=== PATIENT | male | born 1940 ===

== ENCOUNTER 2017-05-28 15:46 | Emergency (ER) | payer SELFPAY ==
[2017-05-28 17:20] LABS: BASO % 0.4 % (0.0-2.0); EOS # 0.1 K/uL (0.0-0.7); EOS % 0.9 % (0.0-4.0); HEMOGLOBIN 15.1 g/dL (12.0-18.0); LYMPH # 1.7 K/uL (1.0-4.3); LYMPH % 18.7 % (20.0-40.0); MEAN CELL VOLUME 91.4 fl (80.0-94.0); MEAN CORPUSCULAR HEMOGLOBIN 30.9 pg (27.0-31.0); MEAN CORPUSCULAR HGB CONC 33.8 g/dL (33.0-37.0); MEAN PLATELET VOLUME 8.3 fl (7.2-11.7); MONO # 0.6 K/uL (0.0-0.8); MONO % 6.4 % (0.0-10.0); NEUT # 6.5 K/uL (1.8-7.0); NEUT % 73.6 % (50.0-75.0); RBC 4.88 Mil/uL (4.40-5.90); WHITE BLOOD COUNT 8.9 K/uL (4.8-10.8)
[2017-05-28 17:30] LABS: VENOUS BLOOD GAS BASE EXCESS 1.1 mmol/L (0.0-2.0); VENOUS BLOOD GAS PCO2 55 mmHg (40-60); VENOUS BLOOD GAS PO2 29 mm/Hg (30-55); VENOUS BLOOD PH 7.32 (7.32-7.43)
[2017-05-28 17:47] LABS: ALBUMIN 4.4 g/dL (3.5-5.0); ALT/SGPT 39 U/L (21-72); AST/SGOT 32 U/L (17-59); BLOOD UREA NITROGEN 20 mg/dl (9-20); CALCIUM 9.3 mg/dL (8.4-10.2); GFR AFRICAN-AMERICAN > 60; GFR NON-AFRICAN AMERICAN > 60
[2017-05-28] MEDS ORDERED: Sodium Chloride 0.9% 1,000 ML IV STA ×2 (17:58→19:47)
[2017-05-28 19:33] VITALS: BP 158/74; PULSE 58; RESP 18; TEMP 98; O2SAT 97
--- NOTE | 2017-05-28 20:19 | ED PDOC ---
Hyperglycemia/Hypoglycemia Time Seen by Provider: 05/28/17 16:21 Chief Complaint (Nursing): High Blood Sugar Chief Complaint (Provider): elevated blood sugar History Per: Patient, Family History/Exam Limitations: no limitations Onset/Duration Of Symptoms: Days (3), Gradual Current Symptoms Are (Timing): Still Present Causative (Exacerbating) Factor(s): Other (recent diagnosis of diabetes) : The patient does not have any of the infectious symptoms listed except for those marked. Treatment Prior To Provider Evaluation: None Additional Complaint(s): Sent from clinic for high blood sugar Diagnosed with diabetes 4 days ago and just starte on metformin Reports lightheadedness, excessive thrist, urinary frequency. PMD [facility] Past Medical History Reviewed: Historical Data, Nursing Documentation, Vital Signs Vital Signs: Last Vital Signs Temp 98.0 F 05/28/17 19:32 Pulse 58 L 05/28/17 19:32 Resp 18 05/28/17 19:32 BP 158/74 H 05/28/17 19:32 Pulse Ox 97 05/28/17 19:32 - Medical History PMH: HTN, Hypercholesterolemia, TIA (Admitted last month) Denies: Alzheimer's Disease, Chronic Kidney Disease - Surgical History Surgical History: Cholecystectomy - Family History Family History: States: Unknown Family Hx - Home Medications Home Medications: Ambulatory Orders Medication Instructions Recorded Atorvastatin [Lipitor] 10 mg PO HS #30 tab 03/21/17 Clopidogrel [Plavix] 75 mg PO DAILY #30 tab 03/21/17 Ibuprofen [Motrin Tab] 600 mg PO Q6 PRN #60 tab 03/21/17 Tamsulosin [Flomax] 0.4 mg PO HS #30 cap 03/21/17 amLODIPine [Norvasc] 10 mg PO DAILY #30 tab 03/21/17 metFORMIN [glucOPHAGE] 500 mg PO BID #60 tab 05/24/17 - Allergies Allergies/Adverse Reactions: Allergies Allergy/AdvReac Type Severity Reaction Status Date / Time No Known Allergies Allergy Verified 05/24/17 19:51 Review of Systems ROS Statement: Except As Marked, All Systems Reviewed And Found Negative (and as per hpi) Cardiovascular: Positive for: Light Headedness. Negative for: Chest Pain Genitourinary Male: Positive for: Frequency. Negative for: Dysuria, Hematuria Physical Exam - Reviewed Nursing Documentation Reviewed: Yes Vital Signs Reviewed: Yes - Physical Exam Appears: Positive for: Non-toxic, No Acute Distress Head Exam: Positive for: ATRAUMATIC, NORMOCEPHALIC Skin: Positive for: Warm, Dry Eye Exam: Positive for: EOMI, PERRL ENT: Negative for: Pharyngeal Erythema, Tonsillar Exudate Neck: Positive for: Painless ROM, Supple Cardiovascular/Chest: Positive for: Regular Rate, Rhythm. Negative for: Murmur Respiratory: Positive for: Normal Breath Sounds. Negative for: Wheezing Gastrointestinal/Abdominal: Positive for: Soft. Negative for: Tenderness Extremity: Positive for: Normal ROM. Negative for: Deformity Lymphatic: Negative for: Adenopathy Neurologic/Psych: Positive for: Alert. Negative for: Motor/Sensory Deficits - Laboratory Results Result Diagrams: 05/28/17 17:10 05/28/17 17:10 - ECG O2 Sat by Pulse Oximetry: 97 Medical Decision Making Medical Decision Making: Labs c/w hyperglycemia, no acidosis. On reeval at 730p Pt reports feeling better s/p IVF. Stable for DC with f/u [facility]. Advised increase water intake and strict diabetic diet. Disposition - Clinical Impression Clinical Impression: Hyperglycemia - Disposition Disposition: Routine/Home Disposition Time: 20:00 Condition: IMPROVED Additional Instructions: QING MUCHO AGUA CONTINUE RODRIGUES MEDICAMENTOS A RECETO NO QING SODAS O JUGOS. NO COME DULCES O MUCHO COOK Y ARROZ. Instructions: Hyperglycemia, Adult (DC), Diabetes and Diet Print Language: ROMANIAN
--- NOTE | 2017-05-29 18:12 | CARD ---
APPROVED REPORT EKG Measurement Heart [id number] <Conclusion> Sinus bradycardia Left axis deviation Inferior infarct, age undetermined Abnormal ECG
== END 2017-05-28 21:50 | disposition home or self-care (01) ==
LOC: H.ER 15:46
DX: E11.65 Type 2 diabetes mellitus with hyperglycemia (principal); Z79.84 Long term (current) use of oral hypoglycemic drugs; E78.00 Pure hypercholesterolemia, unspecified; I10 Essential (primary) hypertension; Z86.73 Personal history of transient ischemic attack (TIA), and cerebral infarction without residual deficits
CPT/HCPCS: 80053; 82803; 82948; 83735; 83930; 84100; 84484; 85025; 87040; 93005; 96360; 99285; J7040

== ENCOUNTER 2017-05-29 23:18 | Inpatient (IN) | payer MEDICAID, SELFPAY ==
[2017-05-30] MEDS ORDERED: Sodium Chloride 0.9% 1,000 ML IV STA (00:08)
--- NOTE | 2017-05-30 00:26 | ED PDOC ---
Hyperglycemia/Hypoglycemia Time Seen by Provider: 05/30/17 00:04 Chief Complaint (Nursing): High Blood Sugar Chief Complaint (Provider): High Blood Sugar History Per: Patient History/Exam Limitations: no limitations : The patient does not have any of the infectious symptoms listed except for those marked. Additional Complaint(s): 76 year old male presents to the emergency department with a complaint of high blood sugar, polyuria, polydipsia, and generalized weakness. States he is compliant with medication along with diet precautions although blood sugar remains elevated. Patient was diagnosed with diabetes on 05/25/2017, seen within this facility of 05/24/2017 and 05/28/2017 and discharged with diabetes. Past Medical History Reviewed: Historical Data, Nursing Documentation, Vital Signs Vital Signs: Last Vital Signs Temp 98.4 F 05/29/17 23:43 Pulse 60 05/29/17 23:43 Resp 16 05/29/17 23:43 BP 142/78 05/29/17 23:43 Pulse Ox 96 05/29/17 23:43 - Medical History PMH: Diabetes, HTN, Hypercholesterolemia, TIA (Admitted last month) Denies: Alzheimer's Disease, Chronic Kidney Disease - Surgical History Surgical History: Cholecystectomy - Family History Family History: States: Unknown Family Hx - Home Medications Home Medications: Ambulatory Orders Medication Instructions Recorded amLODIPine [Norvasc] 10 mg PO DAILY #30 tab 03/21/17 metFORMIN [glucOPHAGE] 500 mg PO BID #60 tab 05/24/17 - Allergies Allergies/Adverse Reactions: Allergies Allergy/AdvReac Type Severity Reaction Status Date / Time No Known Allergies Allergy Verified 05/24/17 19:51 Review of Systems ROS Statement: Except As Marked, All Systems Reviewed And Found Negative (As per HPI, otherwise negative) Constitutional: Positive for: Weakness (generalized), Other (polyuria and polydipsia) Physical Exam - Reviewed Nursing Documentation Reviewed: Yes Vital Signs Reviewed: Yes - Physical Exam Appears: Positive for: No Acute Distress Head Exam: Positive for: NORMAL INSPECTION Skin: Positive for: Normal Color, Warm, Dry ENT: Positive for: Normal ENT Inspection (mucous membranes dry) Cardiovascular/Chest: Positive for: Regular Rate, Rhythm. Negative for: Murmur Respiratory: Positive for: Normal Breath Sounds. Negative for: Accessory Muscle Use, Respiratory Distress Gastrointestinal/Abdominal: Positive for: Normal Exam, Soft. Negative for: Tenderness Extremity: Positive for: Normal ROM. Negative for: Pedal Edema Neurologic/Psych: Positive for: Alert, Oriented (x3) - Laboratory Results Result Diagrams: 05/30/17 00:40 05/30/17 00:40 - ECG O2 Sat by Pulse Oximetry: 96 (RA) Pulse Ox Interpretation: Normal Medical Decision Making Medical Decision Making: Time: 7 Initial Impression: Persistent hyperglycemia in setting of recent diagnosis of diabetes mellitus Initial Plan: --CMP --Urine DIP --CBC w/ diff --Sodium Chloride 1L IV --Urinalysis --ABD Shock panel --Reevaluation Time: 125 --Patient will be admitted for further titration of his oral hyperglycemic regimen and blood sugars under Dr. Aleshia SANTIAGO Time: 199 --Admit to hospital routine: as inpatient in med/surg for hyperglycemia and uncontrolled DM. Scribe Attestation: Documented by Jovita Richard acting as a scribe for Luis Dolan MD. MD Scribe Attestation: All medical record entries made by the Scribe were at my direction and personally dictated by me. I have reviewed the chart and agree that the record accurately reflects my personal performance of the history, physical exam, medical decision making, and the department course for this patient. I have also personally directed, reviewed, and agree with the discharge instructions and disposition. Disposition - Clinical Impression Clinical Impression: Hyperglycemia - Patient ED Disposition Is Patient to be Admitted: Yes (inpatient) - Disposition Disposition Time: 02:00 Condition: STABLE - Pt Status Changed To: Hospital Disposition Of: Inpatient - Admit Certification Admit to Inpatient:: After my assessment, the patient will require hospitalization for at least two midnights. This is because of the severity of symptoms shown, intensity of services needed, and/or the medical risk in this patient being treated as an outpatient.
[2017-05-30 00:43] LABS: BASO % 0.6 % (0.0-2.0); EOS # 0.1 K/uL (0.0-0.7); EOS % 1.5 % (0.0-4.0); HEMOGLOBIN 13.9 g/dL (12.0-18.0); LYMPH # 1.8 K/uL (1.0-4.3); LYMPH % 23.7 % (20.0-40.0); MEAN CELL VOLUME 91.1 fl (80.0-94.0); MEAN PLATELET VOLUME 8.4 fl (7.2-11.7); MONO # 0.6 K/uL (0.0-0.8); MONO % 8.4 % (0.0-10.0); NEUT % 65.8 % (50.0-75.0); NRBC % 0.1 % (0.0-0.0); RBC 4.47 Mil/uL (4.40-5.90); RED CELL DISTRIBUTION WIDTH 13.2 % (11.5-14.5); WHITE BLOOD COUNT 7.6 K/uL (4.8-10.8)
[2017-05-30 00:53] LABS: ALB/GLOB RATIO 1.1 (1.0-2.1); ALBUMIN 3.9 g/dL (3.5-5.0); ALT/SGPT 32 U/L (21-72); AST/SGOT 27 U/L (17-59); BLOOD UREA NITROGEN 18 mg/dl (9-20); CALCIUM 9.1 mg/dL (8.4-10.2); GFR AFRICAN-AMERICAN > 60; GFR NON-AFRICAN AMERICAN > 60
[2017-05-30 01:05] LABS: ABG ALLEN TEST YES; ARTERIAL BLOOD GAS HCO3 26.6 mmol/L (21-28); ARTERIAL BLOOD GAS O2 SAT 98.5 % (95-98); ARTERIAL BLOOD GAS PCO2 43 mm/Hg (35-45); ARTERIAL BLOOD GAS PH 7.41 (7.35-7.45); ARTERIAL BLOOD GAS PO2 73 mm/Hg (80-100); ARTERIAL BLOOD GAS TCO2 28.6 mmol/L (22-28)
[2017-05-30] MEDS ORDERED: Potassium Chloride 20 mEq ER Tab PO ONE ×3 (02:22→09:11)
[2017-05-30] MEDS ORDERED: Glucagon Recombinant 1 mg Inj IM PRN (02:24)
[2017-05-30] MEDS ORDERED: Dextrose 50% SYRINGE Inj (50 ml) IV PRN (02:24)
[2017-05-30] MEDS ORDERED: Insulin Regular 100 units/ml SC ONE ×2 (02:29→02:46)
[2017-05-30 02:49] LABS: SQUAMOUS EPITHIAL < 1 /hpf (0-5); URINE BILIRUBIN NEGATIVE (NEGATIVE); URINE BLOOD SMALL (NEGATIVE); URINE CLARITY CLEAR (Clear); URINE COLOR STRAW (YELLOW); URINE GLUCOSE (UA) >=500 mg/dL (Normal); URINE LEUKOCYTE ESTERASE NEG Leu/uL (Negative); URINE PROTEIN NEGATIVE (NEGATIVE); URINE UROBILINOGEN 0.2-1.0 mg/dL (0.2-1.0)
[2017-05-30] MEDS ORDERED: Fluconazole 150 MG TAB PO ONE (03:12)
--- NOTE | 2017-05-30 03:14 | CP.PCM.HP ---
<Patti Monk - Last Filed: 05/30/17 04:43> History of Present Illness - History of Present Illness History of Present Illness: 76 y/o male with PMHx of HTN, DM type 2, Prostate disease s/p prostatectomy and Vitiligo presents to ED complaining of elevated blood sugar levels at home, associated with polyuria, polydipsia, and Nocturia ( waking up at night 4-5 times for urination) for 2 weeks. Patient reports that he was recently started ( 05/25/17) on diabetic medications( metformin 500 mg PO BID), and he has been adherent to his treatment and diet. Also patient reports burning and pain with urination, associated with itchy sensation in his penis for the last 2 weeks. Denies blood in urine. Denies fevers, chills, abdominal pain, diarrheas, N/V or other complains. PMD: [facility] PMHx: HTN, DM type 2, Prostate disease s/p prostatectomy and Vitiligo Allergies: POllen/sneezing FH: Mother and Father: /unknown medical history SHx: Cholecystectomy, Total prostatectomy (in [place]). Denies h/o Prostate cancer. Social: former smoker: quit >40 years ago, denies etoh and illicit drugs meds: as per records in [employer] RE course: VS: Afebrile, unremarkable PE: dry oral mucous. Labs: CBC: wnl, CMP: K+3.5 accucheck: 332 mg/dl treatment: 1L NS once Present on Admission - Present on Admission Any Indicators Present on Admission: No History of DVT/PE: No History of Uncontrolled Diabetes: No Urinary Catheter: No Decubitus Ulcer Present: No Review of Systems - Review of Systems All systems: reviewed and no additional remarkable complaints except (as per HPI ) Past Patient History - Infectious Disease Hx of Infectious Diseases: None - Past Medical History & Family History Past Medical History?: Yes - Past Social History Smoking Status: Former Smoker - CARDIAC Hx Hypercholesterolemia: Yes Hx Hypertension: Yes - PULMONARY Hx Respiratory Disorders: No - NEUROLOGICAL Hx Alzheimer's Disease: No Hx Transient Ischemic Attacks (TIA): Yes (Admitted last month) - HEENT Hx HEENT Problems: No - RENAL Hx Chronic Kidney Disease: No - ENDOCRINE/METABOLIC Hx Endocrine Disorders: Yes Hx Diabetes Mellitus Type 2: Yes - HEMATOLOGICAL/ONCOLOGICAL Hx Blood Disorders: No - INTEGUMENTARY Hx Dermatological Problems: Yes Other/Comment: Vetiligo - MUSCULOSKELETAL/RHEUMATOLOGICAL Hx Musculoskeletal Disorders: Yes Hx Falls: Yes - GASTROINTESTINAL Hx Gastrointestinal Disorders: Yes Hx Nausea: Yes Hx Vomiting: Yes - GENITOURINARY/GYNECOLOGICAL Hx Genitourinary Disorders: Yes Hx Prostate Problems: Yes (BPH) - PSYCHIATRIC Hx Psychophysiologic Disorder: No Hx Substance Use: No - SURGICAL HISTORY Hx Cholecystectomy: Yes - ANESTHESIA Hx Anesthesia: Yes Hx Anesthesia Reactions: No Meds Allergies/Adverse Reactions: Allergies Allergy/AdvReac Type Severity Reaction Status Date / Time No Known Allergies Allergy Verified 05/24/17 19:51 Physical Exam - Constitutional Appears: Non-toxic, No Acute Distress - Eye Exam Eye Exam: Normal appearance - ENT Exam ENT Exam: Mucous Membranes Dry - Respiratory Exam Respiratory Exam: Clear to Auscultation Bilateral, NORMAL BREATHING PATTERN. absent: Decreased Breath Sounds, Rales, Rhonchi, Wheezes, Respiratory Distress, Stridor - Cardiovascular Exam Cardiovascular Exam: REGULAR RHYTHM, RRR, +S1, +S2. absent: Bradycardia, Tachycardia - GI/Abdominal Exam GI & Abdominal Exam: Normal Bowel Sounds, Soft. absent: Distended, Guarding, Rebound, Rigid, Tenderness - Extremities Exam Extremities exam: Positive for: normal inspection. Negative for: calf tenderness, pedal edema - Back Exam Back exam: NORMAL INSPECTION. absent: CVA tenderness (L), CVA tenderness (R) - Neurological Exam Neurological exam: Alert, Oriented x3 - Psychiatric Exam Psychiatric exam: Normal Affect, Normal Mood - Skin Skin Exam: Dry, Intact, Normal Color Results - Vital Signs Recent Vital Signs: Last Vital Signs Temp 98.4 F 05/29/17 23:43 Pulse 60 05/29/17 23:43 Resp 16 05/29/17 23:43 BP 142/78 05/29/17 23:43 Pulse Ox 96 05/30/17 02:03 - Labs Result Diagrams: 05/30/17 00:40 05/30/17 00:40 Labs: Laboratory Results - last 24 hr 05/29/17 05/30/17 05/30/17 23:46 00:40 00:40 WBC 7.6 RBC 4.47 Hgb 13.9 Hct 40.8 MCV 91.1 MCH 31.0 MCHC 34.0 RDW 13.2 Plt Count 396 MPV 8.4 Neut % (Auto) 65.8 Lymph % (Auto) 23.7 [place] % (Auto) 8.4 Eos % (Auto) 1.5 Baso % (Auto) 0.6 Neut # (Auto) 5.0 Lymph # (Auto) 1.8 [place] # (Auto) 0.6 Eos # (Auto) 0.1 Baso # (Auto) 0.0 pCO2 pO2 HCO3 ABG pH ABG Total CO2 ABG O2 Saturation ABG Base Excess Gurjit Test ABG Potassium A-a O2 Difference Glucose Lactate FiO2 Sodium 134 Potassium 3.5 L Chloride 96 L Carbon Dioxide 22 Anion Gap 20 BUN 18 Creatinine 0.5 L Est GFR ( Amer) > 60 Est GFR (Non-Af Amer) > 60 POC Glucose (mg/dL) 332 H Random Glucose 359 H Calcium 9.1 Total Bilirubin 2.1 H AST 27 ALT 32 Alkaline Phosphatase 160 H Total Protein 7.6 Albumin 3.9 Globulin 3.7 Albumin/Globulin Ratio 1.1 Arterial Blood Potassium Urine Color Urine Clarity Urine pH Ur Specific [place] Urine Protein Urine Glucose (UA) Urine Ketones Urine Blood Urine Nitrate Urine Bilirubin Urine Urobilinogen Ur Leukocyte Esterase Urine RBC (Auto) Urine Microscopic WBC Ur Squamous Epith Cells 05/30/17 05/30/17 01:00 02:41 WBC RBC Hgb Hct MCV MCH MCHC RDW Plt Count MPV Neut % (Auto) Lymph % (Auto) [place] % (Auto) Eos % (Auto) Baso % (Auto) Neut # (Auto) Lymph # (Auto) [place] # (Auto) Eos # (Auto) Baso # (Auto) pCO2 43 pO2 73 L HCO3 26.6 ABG pH 7.41 ABG Total CO2 28.6 H ABG O2 Saturation 98.5 H ABG Base Excess 2.2 Gurjit Test Yes ABG Potassium 3.1 L A-a O2 Difference 23.0 Glucose 382 H Lactate 1.7 FiO2 21.0 Sodium 129.0 L Potassium Chloride 98.0 Carbon Dioxide Anion Gap BUN Creatinine Est GFR ( Amer) Est GFR (Non-Af Amer) POC Glucose (mg/dL) Random Glucose Calcium Total Bilirubin AST ALT Alkaline Phosphatase Total Protein Albumin Globulin Albumin/Globulin Ratio Arterial Blood Potassium 3.1 L Urine Color Straw Urine Clarity Clear Urine pH 6.0 Ur Specific [place] 1.024 Urine Protein Negative Urine Glucose (UA) >=500 Urine Ketones Negative Urine Blood Small Urine Nitrate Negative Urine Bilirubin Negative Urine Urobilinogen 0.2-1.0 Ur Leukocyte Esterase Neg Urine RBC (Auto) 12 H Urine Microscopic WBC 3 Ur Squamous Epith Cells < 1 Assessment & Plan - Assessment and Plan (Free Text) Assessment: 76 y/o male with PMHx of HTN, DM type 2 admitted with Hyperglycemia and uncontrolled diabetes. Plan: Uncontrolled NIDDM -MedSurg -accucheck in ER 332 -Regular insulin 5 units SC once -accucheck before insulin -accucheck before breakfast -Increase Metformin dose to 1000 mg PO BID -GFR >60, BUN/Cr: 18/0.5 /wnl -diabetic diet -Hypoglycemic protocol -UA showed glucosuria, no ketones -ABG: PH normal, lactate normal -reinforce counseling about DM type 2 -last HgbA1C on 05/24/17 was 11.5 -Lipid panel tested on 04/13/17 was WNL -base on patient's age and chronic conditions a A1C goal of 7.5-8 % could be consider Dysuria -associated with itchy in penis -most likely 2/2 candidiasis infection -diabetic patient -fluconazole 150 mg PO once -re-assess -UA on admission without evidence of infection HYpokalemia -mild low K+ 3.5 -replace with 20 meq PO once -f/u repeat K+ DVT prophylaxis Lovenox SC - Date & Time Date: 05/30/17 Time: 01:15 <Olga Dean - Last Filed: 05/30/17 09:56> Results - Vital Signs Recent Vital Signs: Last Vital Signs Temp 97.9 F 05/30/17 08:19 Pulse 53 L 05/30/17 08:19 Resp 20 05/30/17 08:19 BP 133/72 05/30/17 08:19 Pulse Ox 96 05/30/17 08:19 - Labs Result Diagrams: 05/30/17 00:40 05/30/17 05:05 Labs: Laboratory Results - last 24 hr 05/29/17 05/30/17 05/30/17 23:46 00:40 00:40 WBC 7.6 RBC 4.47 Hgb 13.9 Hct 40.8 MCV 91.1 MCH 31.0 MCHC 34.0 RDW 13.2 Plt Count 396 MPV 8.4 Neut % (Auto) 65.8 Lymph % (Auto) 23.7 [place] % (Auto) 8.4 Eos % (Auto) 1.5 Baso % (Auto) 0.6 Neut # (Auto) 5.0 Lymph # (Auto) 1.8 [place] # (Auto) 0.6 Eos # (Auto) 0.1 Baso # (Auto) 0.0 pCO2 pO2 HCO3 ABG pH ABG Total CO2 ABG O2 Saturation ABG Base Excess Gurjit Test ABG Potassium A-a O2 Difference Glucose Lactate FiO2 Sodium 134 Potassium 3.5 L Chloride 96 L Carbon Dioxide 22 Anion Gap 20 BUN 18 Creatinine 0.5 L Est GFR ( Amer) > 60 Est GFR (Non-Af Amer) > 60 POC Glucose (mg/dL) 332 H Random Glucose 359 H Calcium 9.1 Total Bilirubin 2.1 H AST 27 ALT 32 Alkaline Phosphatase 160 H Total Protein 7.6 Albumin 3.9 Globulin 3.7 Albumin/Globulin Ratio 1.1 Arterial Blood Potassium Urine Color Urine Clarity Urine pH Ur Specific [place] Urine Protein Urine Glucose (UA) Urine Ketones Urine Blood Urine Nitrate Urine Bilirubin Urine Urobilinogen Ur Leukocyte Esterase Urine RBC (Auto) Urine Microscopic WBC Ur Squamous Epith Cells 05/30/17 05/30/17 05/30/17 01:00 02:41 03:37 WBC RBC Hgb Hct MCV MCH MCHC RDW Plt Count MPV Neut % (Auto) Lymph % (Auto) [place] % (Auto) Eos % (Auto) Baso % (Auto) Neut # (Auto) Lymph # (Auto) [place] # (Auto) Eos # (Auto) Baso # (Auto) pCO2 43 pO2 73 L HCO3 26.6 ABG pH 7.41 ABG Total CO2 28.6 H ABG O2 Saturation 98.5 H ABG Base Excess 2.2 Gurjit Test Yes ABG Potassium 3.1 L A-a O2 Difference 23.0 Glucose 382 H Lactate 1.7 FiO2 21.0 Sodium 129.0 L Potassium Chloride 98.0 Carbon Dioxide Anion Gap BUN Creatinine Est GFR ( Amer) Est GFR (Non-Af Amer) POC Glucose (mg/dL) 240 H Random Glucose Calcium Total Bilirubin AST ALT Alkaline Phosphatase Total Protein Albumin Globulin Albumin/Globulin Ratio Arterial Blood Potassium 3.1 L Urine Color Straw Urine Clarity Clear Urine pH 6.0 Ur Specific [place] 1.024 Urine Protein Negative Urine Glucose (UA) >=500 Urine Ketones Negative Urine Blood Small Urine Nitrate Negative Urine Bilirubin Negative Urine Urobilinogen 0.2-1.0 Ur Leukocyte Esterase Neg Urine RBC (Auto) 12 H Urine Microscopic WBC 3 Ur Squamous Epith Cells < 1 05/30/17 05/30/17 05:05 07:24 WBC RBC Hgb Hct MCV MCH MCHC RDW Plt Count MPV Neut % (Auto) Lymph % (Auto) [place] % (Auto) Eos % (Auto) Baso % (Auto) Neut # (Auto) Lymph # (Auto) [place] # (Auto) Eos # (Auto) Baso # (Auto) pCO2 pO2 HCO3 ABG pH ABG Total CO2 ABG O2 Saturation ABG Base Excess Gurjit Test ABG Potassium A-a O2 Difference Glucose Lactate FiO2 Sodium 138 Potassium 3.0 L Chloride 100 Carbon Dioxide 24 Anion Gap 17 BUN 12 Creatinine 0.5 L Est GFR ( Amer) > 60 Est GFR (Non-Af Amer) > 60 POC Glucose (mg/dL) 96 Random Glucose 193 H Calcium 8.5 Total Bilirubin AST ALT Alkaline Phosphatase Total Protein Albumin Globulin Albumin/Globulin Ratio Arterial Blood Potassium Urine Color Urine Clarity Urine pH Ur Specific [place] Urine Protein Urine Glucose (UA) Urine Ketones Urine Blood Urine Nitrate Urine Bilirubin Urine Urobilinogen Ur Leukocyte Esterase Urine RBC (Auto) Urine Microscopic WBC Ur Squamous Epith Cells Attending/Attestation - Attestation I have personally seen and examined this patient.: Yes I have fully participated in the care of the patient.: Yes I have reviewed all pertinent clinical information: Yes Notes (Text): 05/30/17 09:56 CHART REVIEWED. AGREE WITH FINDINGS AND PLAN.
[2017-05-30] MEDS ORDERED: Insulin Regular 100 units/ml ONE (03:33)
[2017-05-30 07:55] LABS: BLOOD UREA NITROGEN 12 mg/dl (9-20); CALCIUM 8.5 mg/dL (8.4-10.2); GFR AFRICAN-AMERICAN > 60; GFR NON-AFRICAN AMERICAN > 60
[2017-05-30] MEDS ORDERED: Pneumococcal 23-Valent Vaccine IM ONE (09:00)
[2017-05-30] MEDS: Enoxaparin 40 mg Syringe SC SCH (09:37)
[2017-05-30] MEDS: Potassium Chloride 20 mEq 100 ML IVPB SCH ×2 (14:37→14:41)
[2017-05-30] MEDS: Insulin Lispro (humaLOG) 100 Units/ml Inj SC SCH (23:35)
[2017-05-31] MEDS: Insulin Lispro (humaLOG) 100 Units/ml Inj SC SCH ×4 (08:38→22:00)
[2017-05-31 10:38] LABS: BLOOD UREA NITROGEN 12 mg/dl (9-20); CALCIUM 8.8 mg/dL (8.4-10.2); GFR AFRICAN-AMERICAN > 60; GFR NON-AFRICAN AMERICAN > 60
[2017-05-31] MEDS ORDERED: Potassium Chloride 20 mEq ER Tab PO ONE (11:45)
[2017-05-31] MEDS: Enoxaparin 40 mg Syringe SC SCH (12:42)
--- NOTE | 2017-05-31 15:56 | CP.PCM.PN ---
<Andrei Jimenez - Last Filed: 05/31/17 15:48> Subjective - Date & Time of Evaluation Date of Evaluation: 05/31/17 Time of Evaluation: 09:40 - Subjective Subjective: Pt seen and examined at bedside. Denies significant overnight events. Reports mild discomfort of glans penis while urinating. Denies cp/sob/n/v. Tolerating po diet. Objective - Vital Signs/Intake and Output Vital Signs (last 24 hours): Temp Pulse Resp BP Pulse Ox 98.5 F 88 20 121/58 L 98 05/31/17 15:36 05/31/17 15:36 05/31/17 15:36 05/31/17 15:36 05/31/17 15:36 - Medications Medications: Current Medications Amlodipine Besylate (Norvasc) 10 mg PO DAILY [facility] Last Admin: 05/31/17 08:42 Dose: 10 mg Dextrose (Dextrose 50% Inj) 0 ml IV STAT PRN; Protocol PRN Reason: Hypoglycemia Protocol Dextrose (Glutose 15) 0 gm PO ONCE PRN; Protocol PRN Reason: Hypoglycemia Protocol Enoxaparin Sodium (Lovenox) 40 mg SC DAILY [facility] PRN Reason: Protocol Last Admin: 05/31/17 12:42 Dose: 40 mg Glipizide (Glucotrol) 5 mg PO ACL [facility] Last Admin: 05/31/17 12:42 Dose: 5 mg Glucagon (Glucagen Diagnostic Kit) 0 mg IM STAT PRN; Protocol PRN Reason: Hypoglycemia Protocol Insulin Human Lispro (Humalog) 0 units SC ACHS [facility] PRN Reason: Protocol Last Admin: 05/31/17 12:43 Dose: 2 u Metformin HCl (Glucophage) 1,000 mg PO BID [facility] Last Admin: 05/31/17 08:37 Dose: 1,000 mg - Labs Labs: 05/30/17 00:40 05/31/17 10:15 - Constitutional Appears: Well, No Acute Distress - Eye Exam Eye Exam: EOMI - Neck Exam Neck Exam: Full ROM - Respiratory Exam Respiratory Exam: Clear to Ausculation Bilateral, NORMAL BREATHING PATTERN. absent: Wheezes - Cardiovascular Exam Cardiovascular Exam: REGULAR RHYTHM, +S1, +S2 - GI/Abdominal Exam GI & Abdominal Exam: Soft, Normal Bowel Sounds. absent: Tenderness - Exam Exam: absent: Circumcision (phymosis, white smegma noted. Rn Admission [place]) - Extremities Exam Extremities Exam: Full ROM - Neurological Exam Neurological Exam: Alert, Awake, CN II-XII Intact, Oriented x3 - Psychiatric Exam Psychiatric exam: Normal Affect, Normal Mood Assessment and Plan - Assessment and Plan (Free Text) Plan: 76 y/o male with PMHx of HTN, DM type 2 admitted with Hyperglycemia and uncontrolled diabetes. Uncontrolled NIDDM -MedSurg -accucheck in ER 332 -s/p Regular insulin 5 units SC once -accucheck before insulin and before breakfast -Increase Metformin dose to 1000 mg PO BID -Glipizide 5 mg PO -GFR >60, BUN/Cr: 12/0.6 -diabetic diet -Hypoglycemic protocol -UA showed glucosuria, no ketones -ABG: PH normal, lactate normal -reinforce counseling about DM type 2 -last HgbA1C on 05/24/17 was 11.5; 01/2017: 6.7 -Lipid panel tested on 04/13/17 was WNL -base on patient's age and chronic conditions a A1C goal of 7.5-8 % Dysuria -associated with itchy in penis -most likely 2/2 candidiasis infection/smegma -education on personal hygiene for daily washing of foreskin and glans penis -diabetic patient -fluconazole 150 mg PO once -re-assess -UA on admission without evidence of infection -phimosis: urology consulted: recs appreciated HYpokalemia -mild low K+ 3.3 -replace with 40 meq PO once -f/u repeat K+ DVT prophylaxis Lovenox SC <Olga Dean - Last Filed: 06/01/17 07:05> Objective - Vital Signs/Intake and Output Vital Signs (last 24 hours): Temp Pulse Resp BP Pulse Ox 98.2 F 61 19 104/61 97 06/01/17 00:00 06/01/17 00:00 06/01/17 00:00 06/01/17 00:00 06/01/17 00:00 - Medications Medications: Current Medications Amlodipine Besylate (Norvasc) 10 mg PO DAILY [facility] Last Admin: 05/31/17 08:42 Dose: 10 mg Dextrose (Dextrose 50% Inj) 0 ml IV STAT PRN; Protocol PRN Reason: Hypoglycemia Protocol Dextrose (Glutose 15) 0 gm PO ONCE PRN; Protocol PRN Reason: Hypoglycemia Protocol Enoxaparin Sodium (Lovenox) 40 mg SC DAILY [facility] PRN Reason: Protocol Last Admin: 05/31/17 12:42 Dose: 40 mg Glipizide (Glucotrol) 5 mg PO ACL [facility] Last Admin: 05/31/17 12:42 Dose: 5 mg Glucagon (Glucagen Diagnostic Kit) 0 mg IM STAT PRN; Protocol PRN Reason: Hypoglycemia Protocol Insulin Human Lispro (Humalog) 0 units SC ACHS [facility] PRN Reason: Protocol Last Admin: 05/31/17 22:00 Dose: Not Given Metformin HCl (Glucophage) 1,000 mg PO BID [facility] Last Admin: 05/31/17 16:50 Dose: 1,000 mg - Labs Labs: 05/30/17 00:40 05/31/17 10:15 Attending/Attestation - Attestation I have personally seen and examined this patient.: Yes I have fully participated in the care of the patient.: Yes I have reviewed all pertinent clinical information, including history, physical exam and plan: Yes Notes (Text): 06/01/17 07:04 ATTENDING NOTE ATTESTATION. PATIENT SEEN AND EXAMINED. CASE DISCUSSED WITH RESIDENT. AGREE WITH FINDINGS AND PLAN.
[2017-06-01 07:17] LABS: HEMOGLOBIN 13.8 g/dL (12.0-18.0); MEAN CELL VOLUME 90.4 fl (80.0-94.0); MEAN CORPUSCULAR HEMOGLOBIN 31.4 pg (27.0-31.0); MEAN CORPUSCULAR HGB CONC 34.7 g/dL (33.0-37.0); RBC 4.4 Mil/uL (4.40-5.90); RED CELL DISTRIBUTION WIDTH 12.9 % (11.5-14.5)
[2017-06-01] MEDS: Insulin Lispro (humaLOG) 100 Units/ml Inj SC SCH ×2 (07:30→12:02)
[2017-06-01 07:37] LABS: ALBUMIN 3.5 g/dL (3.5-5.0); ALT/SGPT 35 U/L (21-72); AST/SGOT 25 U/L (17-59); BLOOD UREA NITROGEN 16 mg/dl (9-20); CALCIUM 8.8 mg/dL (8.4-10.2); GFR AFRICAN-AMERICAN > 60; GFR NON-AFRICAN AMERICAN > 60
[2017-06-01 08:01] VITALS: BP 116/62; PULSE 82; RESP 18; TEMP 97.8; O2SAT 96
[2017-06-01] MEDS: Enoxaparin 40 mg Syringe SC SCH (08:59)
--- NOTE | 2017-06-01 11:03 | CP.PCM.DIS ---
Provider - Provider Date of Admission: 05/30/17 02:00 Attending physician: Philly Craig MD Time Spent in preparation of Discharge (in minutes): 20 Diagnosis - Discharge Diagnosis (1) Diabetes mellitus Status: Chronic Hospital Course - Lab Results Lab Results: Most Recent Lab Values WBC 6.0 K/uL (4.8-10.8) 06/01/17 05:30 RBC 4.40 Mil/uL (4.40-5.90) 06/01/17 05:30 Hgb 13.8 g/dL (12.0-18.0) 06/01/17 05:30 Hct 39.7 % (35.0-51.0) 06/01/17 05:30 MCV 90.4 fl (80.0-94.0) 06/01/17 05:30 MCH 31.4 pg (27.0-31.0) H 06/01/17 05:30 MCHC 34.7 g/dL (33.0-37.0) 06/01/17 05:30 RDW 12.9 % (11.5-14.5) 06/01/17 05:30 Plt Count 414 K/uL (130-400) H 06/01/17 05:30 MPV 8.4 fl (7.2-11.7) 05/30/17 00:40 Neut % (Auto) 65.8 % (50.0-75.0) 05/30/17 00:40 Lymph % (Auto) 23.7 % (20.0-40.0) 05/30/17 00:40 [place] % (Auto) 8.4 % (0.0-10.0) 05/30/17 00:40 Eos % (Auto) 1.5 % (0.0-4.0) 05/30/17 00:40 Baso % (Auto) 0.6 % (0.0-2.0) 05/30/17 00:40 Neut # (Auto) 5.0 K/uL (1.8-7.0) 05/30/17 00:40 Lymph # (Auto) 1.8 K/uL (1.0-4.3) 05/30/17 00:40 [place] # (Auto) 0.6 K/uL (0.0-0.8) 05/30/17 00:40 Eos # (Auto) 0.1 K/uL (0.0-0.7) 05/30/17 00:40 Baso # (Auto) 0.0 K/uL (0.0-0.2) 05/30/17 00:40 pCO2 43 mm/Hg (35-45) 05/30/17 01:00 pO2 73 mm/Hg (80-100) L 05/30/17 01:00 HCO3 26.6 mmol/L (21-28) 05/30/17 01:00 ABG pH 7.41 (7.35-7.45) 05/30/17 01:00 ABG Total CO2 28.6 mmol/L (22-28) H 05/30/17 01:00 ABG O2 Saturation 98.5 % (95-98) H 05/30/17 01:00 ABG Base Excess 2.2 mmol/L (-2.0-3.0) 05/30/17 01:00 Gurjit Test Yes 05/30/17 01:00 ABG Potassium 3.1 mmol/L (3.6-5.2) L 05/30/17 01:00 A-a O2 Difference 23.0 mm/Hg 05/30/17 01:00 Sodium 129.0 mmol/L (132-148) L 05/30/17 01:00 Chloride 98.0 mmol/L (98-107) 05/30/17 01:00 Glucose 382 mg/dL (75-110) H 05/30/17 01:00 Lactate 1.7 mmol/L (0.7-2.1) 05/30/17 01:00 FiO2 21.0 % 05/30/17 01:00 Sodium 139 mmol/l (132-148) 06/01/17 05:30 Potassium 3.7 MMOL/L (3.6-5.0) 06/01/17 05:30 Chloride 100 mmol/L (98-107) 06/01/17 05:30 Carbon Dioxide 24 mmol/L (22-30) 06/01/17 05:30 Anion Gap 19 (10-20) 06/01/17 05:30 BUN 16 mg/dl (9-20) 06/01/17 05:30 Creatinine 0.6 mg/dl (0.8-1.5) L 06/01/17 05:30 Est GFR ( Amer) > 60 06/01/17 05:30 Est GFR (Non-Af Amer) > 60 06/01/17 05:30 POC Glucose (mg/dL) 232 mg/dL (65-110) H 06/01/17 10:38 Random Glucose 165 mg/dL (75-110) H 06/01/17 05:30 Calcium 8.8 mg/dL (8.4-10.2) 06/01/17 05:30 Total Bilirubin 2.3 mg/dl (0.2-1.3) H 06/01/17 05:30 AST 25 U/L (17-59) 06/01/17 05:30 ALT 35 U/L (21-72) 06/01/17 05:30 Alkaline Phosphatase 114 U/L (38-126) 06/01/17 05:30 Total Protein 7.1 G/DL (6.3-8.2) 06/01/17 05:30 Albumin 3.5 g/dL (3.5-5.0) 06/01/17 05:30 Globulin 3.6 gm/dL (2.2-3.9) 06/01/17 05:30 Albumin/Globulin Ratio 1.0 (1.0-2.1) 06/01/17 05:30 Arterial Blood Potassium 3.1 mmol/L (3.6-5.2) L 05/30/17 01:00 Urine Color Straw (YELLOW) 05/30/17 02:41 Urine Clarity Clear (Clear) 05/30/17 02:41 Urine pH 6.0 (5.0-8.0) 05/30/17 02:41 Ur Specific [place] 1.024 (1.003-1.030) 05/30/17 02:41 Urine Protein Negative mg/dL (NEGATIVE) 05/30/17 02:41 Urine Glucose (UA) >=500 mg/dL (Normal) 05/30/17 02:41 Urine Ketones Negative mg/dL (NEGATIVE) 05/30/17 02:41 Urine Blood Small (NEGATIVE) 05/30/17 02:41 Urine Nitrate Negative (NEGATIVE) 05/30/17 02:41 Urine Bilirubin Negative (NEGATIVE) 05/30/17 02:41 Urine Urobilinogen 0.2-1.0 mg/dL (0.2-1.0) 05/30/17 02:41 Ur Leukocyte Esterase Neg [place]/uL (Negative) 05/30/17 02:41 Urine RBC (Auto) 12 /hpf (0-3) H 05/30/17 02:41 Urine Microscopic WBC 3 /hpf (0-5) 05/30/17 02:41 Ur Squamous Epith Cells < 1 /hpf (0-5) 05/30/17 02:41 - Hospital Course Hospital Course: 76 y/o male with PMHx of HTN, DM type 2 admitted with Hyperglycemia and uncontrolled diabetes. Pt started on Glipizide 5 mg PO ACL with better glucose control. along with Metformin 1000 mg BID. Pt had buildup of smegma with phimosis. Counseled on daily washing of glans penis. Discharge Exam - Head Exam Head Exam: NORMAL INSPECTION - Eye Exam Eye Exam: EOMI - Neck Exam Neck exam: Full Rom - Respiratory Exam Respiratory Exam: Clear to PA & Lateral, UNREMARKABLE. absent: Wheezes - Cardiovascular Exam Cardiovascular Exam: REGULAR RHYTHM, +S1, +S2 - GI/Abdominal Exam GI & Abdominal Exam: Normal Bowel Sounds, Soft. absent: Tenderness - Exam Exam: absent: Circumcision - Extremities Exam Extremities exam: full ROM - Neurological Exam Neurological exam: Alert, CN II-XII Intact, Oriented x3 - Psychiatric Exam Psychiatric exam: Normal Affect, Normal Mood Discharge Plan - Discharge Medications Prescriptions: amLODIPine [Norvasc] 10 mg PO DAILY #30 tab GlipiZIDE [Glucotrol] 5 mg PO ACL #30 tab MetFORMIN [glucoPHAGE] 1,000 mg PO BID 30 Days #60 tab - Follow Up Plan Condition: STABLE Disposition: HOME/ ROUTINE Patient education suggested?: Yes Instructions: Blood Glucose Monitoring, Counting Carbs If You Do Not Use Insulin, Treatment for Type 2 Diabetes, Diabetes and Diet, Diabetes in Older Adults Additional Instructions: Please follow up with Dr. Patterson on 06/04/2017 at 03:40 PM. Por favor: tienes merlin enrrique con Dr. Patterson el 12 Nicky a 03:40.
[2017-06-01] MEDS ORDERED: Chlorhexidine Gluconate 1 APPL/PKT TP ONE (11:16)
[2017-06-01] MEDS ORDERED: Mycolog II OINT TOP SCH (13:00)
--- NOTE | 2017-06-01 13:30 | CON ---
DATE: 06/01/2017 COMPREHENSIVE UROLOGIC CONSULTATION REASON FOR CONSULTATION: Phimosis. BRIEF HISTORY: The patient is a 76-year-old male from [place], status post transurethral prostate surgery in [place] for prostate disease. Currently, voiding okay, with some history of some increased urinary frequency, which could be secondary to his diabetes mellitus and also has a history of tight foreskin. The patient currently has no history of dysuria, gross hematuria, renal colic or abdominal pain. No history of any kidney disease or kidney stones. The patient also was admitted for uncontrolled diabetes mellitus. PAST SURGICAL HISTORY: The patient's only past surgical history is a transurethral resection or transurethral surgery of the prostate. ALLERGIES: THE PATIENT HAS NO KNOWN ALLERGIES TO ANY MEDICATION. SOCIAL HISTORY: The patient was a heavy smoker in the past, but stopped 30 years ago. No history of any alcohol use. Asked to see the patient regarding phimosis. PHYSICAL EXAMINATION: GENERAL: This patient is a well-developed, well-nourished, male. He is alert. He is oriented. HEENT: Grossly within normal limits. NECK: Supple. Thyroid not palpable. ABDOMEN: Soft, nondistended, and nontender. No CVA tenderness. No suprapubic tenderness. GENITALIA: The patient is non-circumcised, with normal glans and meatus and the patient does have tight foreskin some inflammation, possibly balanitis. The foreskin; however, was able to be retracted back completely over the glans penis. Testicles are down bilaterally, nontender without any masses. RECTAL: Prostate is , slightly enlarged prostate, moves symmetrical, nontender without nodules or indurations with a palpable median sulcus. EXTREMITIES: The patient has full range of motion of both upper and lower extremities. LABORATORY DATA: His laboratory evaluation today 06/01/2017 shows CBC with a WBC count of 6.0, hemoglobin of 13.8, and hematocrit of 39.7, with a platelet count of 414,000. His chem profile shows sodium of 139, potassium of 3.7, chloride of 100, CO2 of 24, BUN and creatinine of 16 and 0.6 respectively with the GFR of greater than 60. His random glucose at one time period was 232, other time it was 147 and 155. His calcium is 8.8. Total bilirubin is 2.3. AST was 25, ALT was 35, and alkaline phosphatase was 114. He had no urinalysis on the chart. DIAGNOSTIC IMPRESSION: Diagnostic impression for this patient is tight foreskin, which is painful at times and some possible mild balanitis. PLAN: Plan for this patient is to apply Mycolog cream or ointment, whichever is available b.i.d. for at least 10 days to the entire distal foreskin. The foreskin should be retracted back over the glans penis and the Mycolog ointment or cream should be applied to the foreskin and glans penis and then retracted back over the glans penis b.i.d. The patient can be seen in office follow up in about 2 weeks. Prasad Augustin MD
== END 2017-06-01 15:20 | disposition home or self-care (01) | DRG 638 ==
LOC: H.ER 23:18 → H.ERHOLD 05-30 02:00 → H.MEDSURG1 05-30 04:05
PROVIDERS: ADMIT Family Medicine Geriatric Medicine; ATTEND Family Medicine Geriatric Medicine
PROC: 3E0234Z Introduction of Serum, Toxoid and Vaccine into Muscle, Percutaneous Approach (ICD-10-PCS; principal; 2017-05-30)
DX: E11.65 Type 2 diabetes mellitus with hyperglycemia (principal); B37.89 Other sites of candidiasis; L80 Vitiligo; I10 Essential (primary) hypertension; E78.00 Pure hypercholesterolemia, unspecified; Z86.73 Personal history of transient ischemic attack (TIA), and cerebral infarction without residual deficits; Z87.891 Personal history of nicotine dependence; Z23 Encounter for immunization; E87.6 Hypokalemia; N47.1 Phimosis; N48.1 Balanitis

== ENCOUNTER 2018-02-20 08:19 | Inpatient (IN) | payer MEDICAID, OTHER ==
--- NOTE | 2018-02-20 08:41 | ED PDOC ---
HPI:STROKE - Time Time: 08:39 - Historian Historian: Family - Chief Complaint Chief Complaint: other (Aphasia) - Onset Date: 02/20/18 Time: 08:00 Onset: Hours (1) - Timing Timing: Currently Symptomatic - Context Context: Walking - Location Location: Speech - Radiation Radiation: None - Severity of pain Maximum severity:: Moderate Pain Scale:: 0 Severity Current: Moderate Pain Scale:: 0 - Exacerbated by Exacerbated by:: Nothing - Relieved by Relieved by:: Nothing - TPA Positive for Contraindication: No - Notes: Notes:: Sore throat x 1 week. While walking dog this AM at 8AM developed inability to speak. Denies headache, peripharl weakness or dizziness NIHSS Stroke Scale - How Severe is the Stroke Level of Consciousness: 0=Alert LOC to Questions: 2=Neither correct LOC to commands: 0=Obeys both correctly Best Gaze: 0=Normal Visual: 0=No visual loss Facial: 0=Normal Motor Arm - Left: 0=No drift Motor Arm - Right: 0=No drift Motor Leg - Left: 0=No drift Motor Leg - Right: 0=No drift Limb Ataxia: 0=Absent Sensory: 0=Normal Best Language: 2=Severe aphasia Dysarthia: 2=Severe, near unintelligible or worse Extinction & Inattention (Neglect): 0=Normal, no object Score: 6 rTPA Inclusion/Exclusion - Refusal of Treatment Patient Refused Treatment: No - Inclusion Criteria for Altepase Patient is 18 years or Older: Yes The Clinical Diagnosis of Ischemic Stroke That is Causing a Potentially Disabling Neurological Deficit: Yes Time of Onset is Well Established to be Less Than 270 Minute Before Treatment Would Begin: Yes Risk/Benefit Discussed With Patient/Family Member Present: Yes Past Medical History Vital Signs: Last Vital Signs Temp 97.3 F L 02/20/18 08:23 Pulse 54 L 02/20/18 08:23 Resp 16 02/20/18 08:23 BP 172/71 H 02/20/18 08:23 Pulse Ox 96 02/20/18 08:23 - Medical History PMH: Diabetes, HTN, Hypercholesterolemia, TIA (Admitted last month) Denies: Alzheimer's Disease, Chronic Kidney Disease - Surgical History Surgical History: Cholecystectomy - Family History Family History: States: Unknown Family Hx - Home Medications Home Medications: Ambulatory Orders Medication Instructions Recorded GlipiZIDE [Glucotrol] 5 mg PO ACL #30 tab 04/09/18 MetFORMIN [glucoPHAGE] 1,000 mg PO BID 30 Days #60 tab 06/01/17 amLODIPine [Norvasc] 5 mg PO DAILY 02/20/18 - Allergies Allergies/Adverse Reactions: Allergies Allergy/AdvReac Type Severity Reaction Status Date / Time No Known Allergies Allergy Verified 05/24/17 19:51 Review of Systems ROS Statement: Except As Marked, All Systems Reviewed And Found Negative ENT: Positive for: Throat Pain Neurological: Positive for: Change in Speech. Negative for: Weakness, Numbness Physical Exam - Reviewed Nursing Documentation Reviewed: Yes Vital Signs Reviewed: Yes - Physical Exam Appears: Positive for: Non-toxic, No Acute Distress Head Exam: Positive for: ATRAUMATIC, NORMAL INSPECTION, NORMOCEPHALIC Skin: Positive for: Normal Color, Warm, DRY Eye Exam: Positive for: EOMI, Normal appearance, PERRL ENT: Positive for: Normal ENT Inspection Neck: Positive for: Normal, Painless ROM Cardiovascular/Chest: Positive for: Regular Rate, Rhythm Respiratory: Positive for: CNT, Normal Breath Sounds Gastrointestinal/Abdominal: Positive for: Normal Exam, Soft Back: Positive for: Normal Inspection Extremity: Positive for: Normal ROM Neurologic/Psych: Positive for: Alert, Aphasia. Negative for: Motor/Sensory Deficits, Facial Droop - Laboratory Results Result Diagrams: 02/20/18 08:40 02/20/18 08:40 - ECG O2 Sat by Pulse Oximetry: 96 (RA) Pulse Ox Interpretation: Normal - Progress Re-evaluation Time: 10:04 Condition: Re-examined, Unchanged - Core Measure Core Measure Indicators: Code Stroke - Critical Care Total Time (In Min): 45 Documented Critical Care: Time excludes all time spent performint seperately billable procedures Medical Decision Making Medical Decision Making: PMH CVA with similar presentation of aphasia. Throat is erythemetous but no evidence of peritonsillar abscess. Considering CVA as etiology of aphasia [address] with radiologist who sees no acute hemorrhage or brain infarction. Additionally discussed case and results with Dr. Lala, neurologist. 899 CT results FINDINGS: HEMORRHAGE: No acute parenchymal, subarachnoid nor extra-axial hemorrhage. BRAIN: Mild moderate diffuse/confluent chronic periventricular white matter ischemic changes seen extending peripherally into the deep and subcortical white matter of both cerebral hemispheres. More discrete chronic appearing right posterior parietal subcortical infarct also present. Previously noted scattered smaller infarcts scattered about the deep and subcortical white matter as well as right lateral basal ganglia poorly seen on this exam compared to high-resolution MRI. Moderate generalized volume loss. Vascular calcifications both carotid siphons and vertebral arteries. VENTRICLES: No obstructive hydrocephalus. CALVARIUM: No acute calvarial fractures. Small exostosis the right parasagittal frontal calvarium unchanged. PARANASAL SINUSES: Unremarkable as visualized. No significant inflammatory changes. MASTOID AIR CELLS: Unremarkable as visualized. No inflammatory changes. OTHER FINDINGS: Changes of bilateral cataract surgery. IMPRESSION: No acute intracranial hemorrhage. Mild chronic white matter ischemic changes with a few scattered chronic right basal nuclei less well seen on this study as compared to high-resolution MRI. Moderate generalized volume loss. [address] Lala, there are no contraindications for giving tpa. Risks and benefits of tpa discussed with family and they are in agreement to use it. Will administer tpa now. 0955 Discussed case with intensive care on-call, Dr. Monge, and with hospitalist, Dr. Barone. Disposition - Clinical Impression Clinical Impression: CVA (cerebral vascular accident) - Patient ED Disposition Is Patient to be Admitted: Yes - Disposition Disposition Time: 10:04 Condition: GUARDED - Pt Status Changed To: Hospital Disposition Of: Inpatient - Admit Certification Admit to Inpatient:: After my assessment, the patient will require hospital ization for at least two midnights. This is because of the severity of symptoms shown, intensity of services needed, and/or the medical risk in this patient being treated as an outpatient. - POA Present On Arrival: None
[2018-02-20 08:54] LABS: BASO % 0.7 % (0.0-2.0); EOS # 0.1 K/uL (0.0-0.7); EOS % 2.1 % (0.0-4.0); HEMOGLOBIN 14.4 g/dL (12.0-18.0); LYMPH # 1.4 K/uL (1.0-4.3); LYMPH % 25.7 % (20.0-40.0); MEAN CELL VOLUME 94.7 fl (80.0-94.0); MEAN CORPUSCULAR HEMOGLOBIN 31.5 pg (27.0-31.0); MEAN CORPUSCULAR HGB CONC 33.3 g/dL (33.0-37.0); MEAN PLATELET VOLUME 7.4 fl (7.2-11.7); MONO # 0.4 K/uL (0.0-0.8); MONO % 7.9 % (0.0-10.0); NEUT # 3.6 K/uL (1.8-7.0); NEUT % 63.6 % (50.0-75.0); NRBC % 0.1 % (0.0-0.0); RBC 4.56 Mil/uL (4.40-5.90); RED CELL DISTRIBUTION WIDTH 13.5 % (11.5-14.5); WHITE BLOOD COUNT 5.6 K/uL (4.8-10.8)
[2018-02-20 09:01] LABS: INR 1.1; PROTHROMBIN TIME 12.5 Seconds (9.8-13.1)
[2018-02-20 09:03] LABS: ALB/GLOB RATIO 1.1 (1.0-2.1); ALBUMIN 4.2 g/dL (3.5-5.0); ALT/SGPT 24 U/L (21-72); AST/SGOT 35 U/L (17-59); BLOOD UREA NITROGEN 16 mg/dl (9-20); CALCIUM 8.8 mg/dL (8.4-10.2); GFR NON-AFRICAN AMERICAN > 60; HDL CHOLESTEROL 59 MG/DL (30-70); PARTIAL THROMBOPLASTIN TIME 36.3 Seconds (25.6-37.1)
--- NOTE | 2018-02-20 09:03 | CT ---
Date of service: 02/20/2018 PROCEDURE: CT HEAD WITHOUT CONTRAST. HISTORY: code stroke COMPARISON: Comparison made with prior CT scan and MRI of the brain dated 02/08/2017 and respectively. TECHNIQUE: Axial computed tomography images were obtained through the head/brain without intravenous contrast. Radiation dose: Total exam DLP = 940.06 mGy-cm. This CT exam was performed using one or more of the following dose reduction techniques: Automated exposure control, adjustment of the mA and/or kV according to patient size, and/or use of iterative reconstruction technique. FINDINGS: HEMORRHAGE: No acute parenchymal, subarachnoid nor extra-axial hemorrhage. BRAIN: Mild moderate diffuse/confluent chronic periventricular white matter ischemic changes seen extending peripherally into the deep and subcortical white matter of both cerebral hemispheres. More discrete chronic appearing right posterior parietal subcortical infarct also present. Previously noted scattered smaller infarcts scattered about the deep and subcortical white matter as well as right lateral basal ganglia poorly seen on this exam compared to high-resolution MRI. Moderate generalized volume loss. Vascular calcifications both carotid siphons and vertebral arteries. VENTRICLES: No obstructive hydrocephalus. CALVARIUM: No acute calvarial fractures. Small exostosis the right parasagittal frontal calvarium unchanged. PARANASAL SINUSES: Unremarkable as visualized. No significant inflammatory changes. MASTOID AIR CELLS: Unremarkable as visualized. No inflammatory changes. OTHER FINDINGS: Changes of bilateral cataract surgery. IMPRESSION: No acute intracranial hemorrhage. Mild chronic white matter ischemic changes with a few scattered chronic right basal nuclei less well seen on this study as compared to high-resolution MRI. Moderate generalized volume loss.
[2018-02-20] MEDS: Sodium Chloride 0.9% 1,000 ML IV SCH ×2 (09:08→13:00)
[2018-02-20 09:14] LABS: LDL CHOLESTEROL 102 mg/dL (0-129)
[2018-02-20 09:28] VITALS: BMI 24.2
[2018-02-20] MEDS ORDERED: ALTEPLASE IV ONE ×2 (10:00)
[2018-02-20] MEDS ORDERED: STERILE WATER FOR INJ IV ONE (10:00)
[2018-02-20] MEDS ORDERED: STERILE WATER IV ONE (10:00)
[2018-02-20] MEDS ORDERED: EnalaprilAT 1.25 mg/ml Inj ONE ×2 (10:15→10:29)
[2018-02-20] MEDS ORDERED: Enalaprilat 2.5 MG/2 ML IVP STA (10:17)
[2018-02-20] MEDS ORDERED: Enalaprilat 2.5 MG/2 ML IVP PRN (10:21)
[2018-02-20] MEDS ORDERED: Lactated Ringer's 1,000 ML IV SCH (10:30)
--- NOTE | 2018-02-20 10:58 | CP.PCM.CON ---
History of Present Illness - History of Present Illness History of Present Illness: 77 YOM brought to ER for sudden onset of inability to talk at at about 8 AM, when he was walking the dog. Pt had no c/o CP, dizziness, headache, weakness of leg or arm Has h/o CVA and TIA in the past and also has NIDDM and HTN CT head was negative, ER physician d/w case with neurologist Dr Lala, there was no contraindication for TPN, which was give. I'm see pt in ER, TPA being infused, Pt is awake and alert , family is at bedside, still not able to talk and also has rt facial droop now. Review of Systems - Review of Systems Systems not reviewed;Unavailable: Unstable Vital Signs, Language Barrier - Constitutional Constitutional: As Per HPI - EENT Eyes: As Per HPI Ears: As Per HPI Nose/Mouth/Throat: As Per HPI - Cardiovascular Cardiovascular: As Per HPI - Respiratory Respiratory: As Per HPI - Gastrointestinal Gastrointestinal: As Per HPI - Musculoskeletal Musculoskeletal: As Per HPI Past Patient History - Infectious Disease Hx of Infectious Diseases: None - Past Medical History & Family History Past Medical History?: Yes - Past Social History Smoking Status: Former Smoker - CARDIAC Hx Cardiac Disorders: Yes - PULMONARY Hx Respiratory Disorders: No - NEUROLOGICAL Hx Alzheimer's Disease: No Hx Transient Ischemic Attacks (TIA): Yes (Admitted last month) - HEENT Hx HEENT Problems: No - RENAL Hx Chronic Kidney Disease: No - ENDOCRINE/METABOLIC Hx Endocrine Disorders: Yes - HEMATOLOGICAL/ONCOLOGICAL Hx Blood Disorders: No - INTEGUMENTARY Other/Comment: Vetiligo - MUSCULOSKELETAL/RHEUMATOLOGICAL Hx Musculoskeletal Disorders: Yes Hx Falls: Yes - GASTROINTESTINAL Hx Gastrointestinal Disorders: Yes Hx Nausea: Yes Hx Vomiting: Yes - GENITOURINARY/GYNECOLOGICAL Hx Genitourinary Disorders: Yes Hx Prostate Problems: Yes (BPH) - PSYCHIATRIC Hx Psychophysiologic Disorder: No Hx Substance Use: No - SURGICAL HISTORY Hx Cholecystectomy: Yes - ANESTHESIA Hx Malignant Hyperthermia: No Meds Allergies/Adverse Reactions: Allergies Allergy/AdvReac Type Severity Reaction Status Date / Time No Known Allergies Allergy Verified 05/24/17 19:51 - Medications Medications: Current Medications Enalaprilat (Vasotec) 2.5 mg IVP Q6 PRN PRN Reason: SBP> 150 Last Admin: 02/20/18 10:28 Dose: 2.5 mg Sodium Chloride (Sodium Chloride 0.9%) 1,000 mls @ 100 mls/hr IV .Q10H CANDELARIA Last Admin: 02/20/18 09:08 Dose: 100 mls/hr Alteplase, Recombinant 52 mg/ (Sterile Water) 52 mls @ 52 mls/hr IV .Q1H ONE Stop: 02/20/18 10:59 Last Admin: 02/20/18 09:30 Dose: 52 mls/hr Lactated Ringer's (Lactated Ringer's) 1,000 mls @ 60 mls/hr IV .[id number] CANDELARIA Insulin Human Lispro (Humalog) 0 units SC ACCU-CHECK CANDELARIA; Protocol Physical Exam - Constitutional Appears: Well - Head Exam Head Exam: ATRAUMATIC - Eye Exam Eye Exam: Normal appearance - ENT Exam ENT Exam: Mucous Membranes Moist - Neck Exam Neck exam: Positive for: Full Rom - Respiratory Exam Respiratory Exam: NORMAL BREATHING PATTERN - Cardiovascular Exam Cardiovascular Exam: REGULAR RHYTHM - GI/Abdominal Exam GI & Abdominal Exam: Soft - Extremities Exam Extremities exam: Positive for: full ROM - Neurological Exam Neurological exam: Alert, Motor Sensory Deficit - Expanded Neurological Exam Expanded Speech: Expressive Aphasia Cranial nerves: Facial [place] w/Forehead Movement: Abnormal Right Results - Vital Signs Recent Vital Signs: Last Vital Signs Temp 97.6 F 02/20/18 10:34 Pulse 78 02/20/18 10:40 Resp 19 02/20/18 10:40 BP 155/82 H 02/20/18 10:40 Pulse Ox 98 02/20/18 10:40 - Labs Result Diagrams: 02/20/18 08:40 02/20/18 08:40 Labs: Laboratory Results - last 24 hr 02/20/18 02/20/18 02/20/18 08:40 08:40 08:40 WBC 5.6 RBC 4.56 Hgb 14.4 Hct 43.2 MCV 94.7 H D MCH 31.5 H MCHC 33.3 RDW 13.5 Plt Count 503 H MPV 7.4 Neut % (Auto) 63.6 Lymph % (Auto) 25.7 [place] % (Auto) 7.9 Eos % (Auto) 2.1 Baso % (Auto) 0.7 Neut # (Auto) 3.6 Lymph # (Auto) 1.4 [place] # (Auto) 0.4 Eos # (Auto) 0.1 Baso # (Auto) 0.0 PT INR APTT Sodium 140 Potassium 3.5 L Chloride 104 Carbon Dioxide 25 Anion Gap 15 BUN 16 Creatinine 0.7 L Est GFR ( Amer) > 60 Est GFR (Non-Af Amer) > 60 POC Glucose (mg/dL) 113 H Random Glucose 116 H Calcium 8.8 Total Bilirubin 2.3 H AST 35 ALT 24 Alkaline Phosphatase 163 H D Troponin I < 0.0120 Total Protein 8.0 Albumin 4.2 Globulin 3.7 Albumin/Globulin Ratio 1.1 Triglycerides 93 Cholesterol 165 LDL Cholesterol Direct 102 HDL Cholesterol 59 Blood Type Antibody Screen BBK History Checked 02/20/18 02/20/18 08:40 08:40 WBC RBC Hgb Hct MCV MCH MCHC RDW Plt Count MPV Neut % (Auto) Lymph % (Auto) [place] % (Auto) Eos % (Auto) Baso % (Auto) Neut # (Auto) Lymph # (Auto) [place] # (Auto) Eos # (Auto) Baso # (Auto) PT 12.5 INR 1.1 APTT 36.3 Sodium Potassium Chloride Carbon Dioxide Anion Gap BUN Creatinine Est GFR ( Amer) Est GFR (Non-Af Amer) POC Glucose (mg/dL) Random Glucose Calcium Total Bilirubin AST ALT Alkaline Phosphatase Troponin I Total Protein Albumin Globulin Albumin/Globulin Ratio Triglycerides Cholesterol LDL Cholesterol Direct HDL Cholesterol Blood Type O POSITIVE Antibody Screen Negative BBK History Checked No verified bt Assessment & Plan - Assessment and Plan (Free Text) Assessment: Assessment : Acute ischemic CVA : presented with aphasia and Rt facial droop HTN NIDDM h/o CVA and TIA in the past Plan Transfer to ICU TPA given Neurocheck q 2 h Enalaprilate 2.5 mg IV q 6 H prn for SBP > 150 Keep NPO , pt failed swallow evaluation IVf RL 60 cc/h repeat CBC in PM and then in AM DVT prophylaxis: compression device, no AC at this point neurology f/w and f/u CT Acuckecl and covergae.
--- NOTE | 2018-02-20 11:40 | CP.PCM.HP ---
<Cecilio Bauer - Last Filed: 02/20/18 14:14> History of Present Illness - History of Present Illness History of Present Illness: 77 y/o M with a PMHx of HTN, DM2, CVA 7 years ago and TIA 1 year ago, was brought by daughter and to ED due to aphasia. Daughter explains that patient walk out from home around 8AM and return a few minutes later with inability to say any word. At present, pt still unable to talk but understands and folow directions. and daughter reports that pt complained of sore throat for the past few days, no med intake, denied recent trauma, headache, dizziness, chest pain, SOB or weakness. --Daughter explains that patient had a CVA 7 years ago in [place] which consisted on generalized weakness and inability to move. Pt also had a small stroke, TIA 1 month ago here in [facility], which consisted of dizziness and an episode of aphasia for 10 minutes. --Pt was diagnosed with DM2 6 months ago and started on Metformin. Hypertensive for a few years. NKDA Meds: Metformin 100mg Po BID, Norvasc 5mg PO daily. -PMHx: HTN, DM2, CVA, TIA, BPH -PSHx: Cholecystectomy and TURP. -FHx: NC -SHx: Never smoker, no alcohol and no rec drugs. At ED: --Head CT: no intracranial hemorrhage, mild chronic white matter ischemic changes, scattered chronic R basal nuclei, mod volume loss. --Alteplase administered after discussion with neurologist. NO contraindications. --CBC showed mild thrombocytosis 503K; CMP showed mild hypokalemia 3.5. Present on Admission - Present on Admission Any Indicators Present on Admission: No Review of Systems - Review of Systems Systems not reviewed;Unavailable: Acuity of Condition (Aphasia), Other (Aphasia) Past Patient History - Infectious Disease Hx of Infectious Diseases: None - Past Medical History & Family History Past Medical History?: Yes - Past Social History Smoking Status: Former Smoker - CARDIAC Hx Cardiac Disorders: Yes - PULMONARY Hx Respiratory Disorders: No - NEUROLOGICAL Hx Alzheimer's Disease: No Hx Transient Ischemic Attacks (TIA): Yes (Admitted last month) - HEENT Hx HEENT Problems: No - RENAL Hx Chronic Kidney Disease: No - ENDOCRINE/METABOLIC Hx Endocrine Disorders: Yes - HEMATOLOGICAL/ONCOLOGICAL Hx Blood Disorders: No - INTEGUMENTARY Other/Comment: Vetiligo - MUSCULOSKELETAL/RHEUMATOLOGICAL Hx Musculoskeletal Disorders: Yes Hx Falls: Yes - GASTROINTESTINAL Hx Gastrointestinal Disorders: Yes Hx Nausea: Yes Hx Vomiting: Yes - GENITOURINARY/GYNECOLOGICAL Hx Genitourinary Disorders: Yes Hx Prostate Problems: Yes (BPH) - PSYCHIATRIC Hx Psychophysiologic Disorder: No Hx Substance Use: No - SURGICAL HISTORY Hx Cholecystectomy: Yes - ANESTHESIA Hx Malignant Hyperthermia: No Meds Allergies/Adverse Reactions: Allergies Allergy/AdvReac Type Severity Reaction Status Date / Time No Known Allergies Allergy Verified 05/24/17 19:51 Physical Exam - Constitutional Appears: No Acute Distress - Head Exam Head Exam: ATRAUMATIC, NORMAL INSPECTION - Eye Exam Eye Exam: EOMI, Normal appearance, PERRL - ENT Exam ENT Exam: Mucous Membranes Moist Additional comments: Paresis of the Right lower half of one side of the face - Neck Exam Neck exam: Positive for: Full Rom, Normal Inspection. Negative for: Meningismus - Respiratory Exam Respiratory Exam: NORMAL BREATHING PATTERN. absent: Rhonchi, Wheezes, Respiratory Distress - Cardiovascular Exam Cardiovascular Exam: +S1, +S2. absent: JVD - GI/Abdominal Exam GI & Abdominal Exam: Normal Bowel Sounds, Soft. absent: Distended, Guarding, Rebound, Rigid, Tenderness - Extremities Exam Extremities exam: Positive for: full ROM, normal inspection. Negative for: calf tenderness, pedal edema, tenderness - Neurological Exam Neurological exam: Alert, CN II-XII Intact - Expanded Neurological Exam Expanded Neurological exam: Expressive Aphasia Speech: Expressive Aphasia Cranial nerves: EOM's Intact: Normal, Facial Palsey w/Forehead Movement: Abnormal Right ( Paresis of the Right lower half of one side of the face) Ataxia: No Cerebellar Function: Finger to Nose: Normal, Heel to Forbes: Normal Sensory exam: Lower Extremity Light Touch: Normal, Upper Extremity Light Touch: Normal Neuro motor strength exam: Left Upper Extremity: 5, Right Upper Extremity: 5, Left Lower Extremity: 5, Right Lower Extremity: 5 Coma Scale Eye Opening: SPONTANEOUS Coma Scale Motor Response: OBEYS COMMANDS Coma Scale Verbal: Oriented (seems oriented but aphasia) Coma Scale Total: 15 - Psychiatric Exam Psychiatric exam: Normal Mood - Skin Skin Exam: Intact, Normal Color, Warm Results - Vital Signs Recent Vital Signs: Last Vital Signs Temp 97.6 F 02/20/18 10:34 Pulse 78 02/20/18 10:40 Resp 19 02/20/18 10:40 BP 155/82 H 02/20/18 10:40 Pulse Ox 98 02/20/18 10:40 - Labs Result Diagrams: 02/20/18 08:40 02/20/18 08:40 Labs: Laboratory Results - last 24 hr 02/20/18 02/20/18 02/20/18 08:40 08:40 08:40 WBC 5.6 RBC 4.56 Hgb 14.4 Hct 43.2 MCV 94.7 H D MCH 31.5 H MCHC 33.3 RDW 13.5 Plt Count 503 H MPV 7.4 Neut % (Auto) 63.6 Lymph % (Auto) 25.7 [place] % (Auto) 7.9 Eos % (Auto) 2.1 Baso % (Auto) 0.7 Neut # (Auto) 3.6 Lymph # (Auto) 1.4 [place] # (Auto) 0.4 Eos # (Auto) 0.1 Baso # (Auto) 0.0 PT INR APTT Sodium 140 Potassium 3.5 L Chloride 104 Carbon Dioxide 25 Anion Gap 15 BUN 16 Creatinine 0.7 L Est GFR ( Amer) > 60 Est GFR (Non-Af Amer) > 60 POC Glucose (mg/dL) 113 H Random Glucose 116 H Calcium 8.8 Total Bilirubin 2.3 H AST 35 ALT 24 Alkaline Phosphatase 163 H D Troponin I < 0.0120 Total Protein 8.0 Albumin 4.2 Globulin 3.7 Albumin/Globulin Ratio 1.1 Triglycerides 93 Cholesterol 165 LDL Cholesterol Direct 102 HDL Cholesterol 59 Blood Type Antibody Screen BBK History Checked 02/20/18 02/20/18 08:40 08:40 WBC RBC Hgb Hct MCV MCH MCHC RDW Plt Count MPV Neut % (Auto) Lymph % (Auto) [place] % (Auto) Eos % (Auto) Baso % (Auto) Neut # (Auto) Lymph # (Auto) [place] # (Auto) Eos # (Auto) Baso # (Auto) PT 12.5 INR 1.1 APTT 36.3 Sodium Potassium Chloride Carbon Dioxide Anion Gap BUN Creatinine Est GFR ( Amer) Est GFR (Non-Af Amer) POC Glucose (mg/dL) Random Glucose Calcium Total Bilirubin AST ALT Alkaline Phosphatase Troponin I Total Protein Albumin Globulin Albumin/Globulin Ratio Triglycerides Cholesterol LDL Cholesterol Direct HDL Cholesterol Blood Type O POSITIVE Antibody Screen Negative BBK History Checked No verified bt Assessment & Plan - Assessment and Plan (Free Text) Assessment: 77 y/o M with a PMHx of HTN, DM2, CVA 7 years ago and TIA 1 month ago, was brought by daughter and to ED due to aphasia, admitted for evaluation and management of possible acute CVA. --Head CT: no intracranial hemorrhage, mild chronic white matter ischemic changes, scattered chrnic R basal nuclei, mod volume loss. PLAN: >Expressive Aphasia/Brocca's aphasia and Central facial palsy/ --Likely due to CVA vs TIA. --No hemorrhage on Head CT. Less than 3 hours of presentation, no contraindications for thrombolytic therapy. --Alteplase administered --CBC this afternoon, evaluating hemorrhage. --Echocardiogram, US dupplex of b/l carotids and CTA of head and neck. --Angiography of head and neck. --Neurology consult, Dr Lala. --NPO, Swallow evaluation. --Neuro checks Q2H --Maintain SBP<180, Vasotec PRN if SBP>150. --serum glucose goal <180 mg/dL --IV fluids: LR at 60mL/hr. --Admit to ICU --Considering initiating aspirin and lipitor in 24 hours. >DM2 --NPO, hold PO medications --Insulin sliding scale --serum glucose goal <180 mg/dL >HTN --Held home med --Maintain SBP<180, Vasotec PRN if SBP>150. >DVT Prophylaxis --SCD's for now --Hold Lovenox or anticoagulation due to thrombolytic therapy. - Date & Time Date: 02/20/18 Time: 11:11 <Liam Diallo - Last Filed: 02/20/18 16:11> Results - Vital Signs Recent Vital Signs: Last Vital Signs Temp 87.8 F L 02/20/18 10:45 Pulse 88 02/20/18 12:54 Resp 16 02/20/18 12:54 BP 150/79 02/20/18 12:54 Pulse Ox 95 02/20/18 12:54 - Labs Result Diagrams: 02/20/18 08:40 02/20/18 08:40 Labs: Laboratory Results - last 24 hr 02/20/18 02/20/18 02/20/18 08:40 08:40 08:40 WBC 5.6 RBC 4.56 Hgb 14.4 Hct 43.2 MCV 94.7 H D MCH 31.5 H MCHC 33.3 RDW 13.5 Plt Count 503 H MPV 7.4 Neut % (Auto) 63.6 Lymph % (Auto) 25.7 [place] % (Auto) 7.9 Eos % (Auto) 2.1 Baso % (Auto) 0.7 Neut # (Auto) 3.6 Lymph # (Auto) 1.4 [place] # (Auto) 0.4 Eos # (Auto) 0.1 Baso # (Auto) 0.0 PT INR APTT Sodium 140 Potassium 3.5 L Chloride 104 Carbon Dioxide 25 Anion Gap 15 BUN 16 Creatinine 0.7 L Est GFR ( Amer) > 60 Est GFR (Non-Af Amer) > 60 POC Glucose (mg/dL) 113 H Random Glucose 116 H Calcium 8.8 Total Bilirubin 2.3 H AST 35 ALT 24 Alkaline Phosphatase 163 H D Troponin I < 0.0120 Total Protein 8.0 Albumin 4.2 Globulin 3.7 Albumin/Globulin Ratio 1.1 Triglycerides 93 Cholesterol 165 LDL Cholesterol Direct 102 HDL Cholesterol 59 Urine Color Urine Clarity Urine pH Ur Specific Marissa Urine Protein Urine Glucose (UA) Urine Ketones Urine Blood Urine Nitrate Urine Bilirubin Urine Urobilinogen Ur Leukocyte Esterase Urine RBC (Auto) Urine Microscopic WBC Ur Squamous Epith Cells Blood Type Antibody Screen BBK History Checked 02/20/18 02/20/18 02/20/18 08:40 08:40 12:13 WBC RBC Hgb Hct MCV MCH MCHC RDW Plt Count MPV Neut % (Auto) Lymph % (Auto) [place] % (Auto) Eos % (Auto) Baso % (Auto) Neut # (Auto) Lymph # (Auto) [place] # (Auto) Eos # (Auto) Baso # (Auto) PT 12.5 INR 1.1 APTT 36.3 Sodium Potassium Chloride Carbon Dioxide Anion Gap BUN Creatinine Est GFR ( Amer) Est GFR (Non-Af Amer) POC Glucose (mg/dL) 106 Random Glucose Calcium Total Bilirubin AST ALT Alkaline Phosphatase Troponin I Total Protein Albumin Globulin Albumin/Globulin Ratio Triglycerides Cholesterol LDL Cholesterol Direct HDL Cholesterol Urine Color Urine Clarity Urine pH Ur Specific Marissa Urine Protein Urine Glucose (UA) Urine Ketones Urine Blood Urine Nitrate Urine Bilirubin Urine Urobilinogen Ur Leukocyte Esterase Urine RBC (Auto) Urine Microscopic WBC Ur Squamous Epith Cells Blood Type O POSITIVE Antibody Screen Negative BBK History Checked No verified bt 02/20/18 14:30 WBC RBC Hgb Hct MCV MCH MCHC RDW Plt Count MPV Neut % (Auto) Lymph % (Auto) [place] % (Auto) Eos % (Auto) Baso % (Auto) Neut # (Auto) Lymph # (Auto) [place] # (Auto) Eos # (Auto) Baso # (Auto) PT INR APTT Sodium Potassium Chloride Carbon Dioxide Anion Gap BUN Creatinine Est GFR ( Amer) Est GFR (Non-Af Amer) POC Glucose (mg/dL) Random Glucose Calcium Total Bilirubin AST ALT Alkaline Phosphatase Troponin I Total Protein Albumin Globulin Albumin/Globulin Ratio Triglycerides Cholesterol LDL Cholesterol Direct HDL Cholesterol Urine Color Straw Urine Clarity Clear Urine pH 7.0 Ur Specific Marissa 1.009 Urine Protein Negative Urine Glucose (UA) Neg Urine Ketones Negative Urine Blood Negative Urine Nitrate Negative Urine Bilirubin Negative Urine Urobilinogen 0.2-1.0 Ur Leukocyte Esterase Neg Urine RBC (Auto) < 1 Urine Microscopic WBC < 1 Ur Squamous Epith Cells < 1 Blood Type Antibody Screen BBK History Checked Attending/Attestation - Attestation I have personally seen and examined this patient.: Yes I have fully participated in the care of the patient.: Yes I have reviewed all pertinent clinical information: Yes Notes (Text): 02/20/18 16:11 Patient seen and examined with resident. Case discussed and agreed with assess ment and plan of management.
[2018-02-20] MEDS ORDERED: Sodium Chloride 0.9% 1,000 ML IV SCH (11:45)
[2018-02-20] MEDS: Insulin Lispro (humaLOG) 100 Units/ml Inj SC SCH ×3 (12:17→23:21)
[2018-02-20] MEDS ORDERED: Iodixanol 320 MG/ML 100 ML BOTTLE IV ONE (13:41)
[2018-02-20] MEDS ORDERED: Sodium Chloride 0.9% 50 ML IV ONE (13:41)
[2018-02-20 14:39] LABS: SQUAMOUS EPITHIAL < 1 /hpf (0-5); URINE BILIRUBIN NEGATIVE (NEGATIVE); URINE BLOOD NEGATIVE (NEGATIVE); URINE CLARITY CLEAR (Clear); URINE COLOR STRAW (YELLOW); URINE GLUCOSE (UA) NEG (NEGATIVE); URINE LEUKOCYTE ESTERASE NEG Leu/uL (Negative); URINE PROTEIN NEGATIVE (NEGATIVE); URINE UROBILINOGEN 0.2-1.0 mg/dL (0.2-1.0)
--- NOTE | 2018-02-20 14:44 | CT ---
Date of service: 02/20/2018 PROCEDURE: CT Angiography of the neck and brain with contrast HISTORY: CVA COMPARISON: Comparison made with prior noncontrast CT scan brain earlier same day. TECHNIQUE: Contiguous axial images of the neck and brain were obtained from the level of the vertex of the skull to the superior mediastinum in the arteriographic phase of enhancement. Coronal and sagittal reformats or also generated. IV contrast dose: 99 cc Visipaque 320 Radiation dose: Total exam DLP = 475.85 mGy-cm. This CT exam was performed using one or more of the following dose reduction techniques: Automated exposure control, adjustment of the mA and/or kV according to patient size, and/or use of iterative reconstruction technique. FINDINGS: Minor calcified atherosclerotic plaque seen along the aortic arch and at the origins of the great vessels however no evidence of significant stenosis or occlusion. The common carotid arteries and carotid bifurcations widely patent. There appears to be some minimal soft plaque and partially calcified plaque changes seen at the level of the left carotid bifurcation however no evidence of occlusion significant stenosis or dissection or . The internal carotid arteries including the petrous, cavernous and supraclinoid segments are widely patent. Minor calcified plaque seen along both carotid siphons. The vertebral arteries are patent throughout right-sided which is only minimally larger in caliber/more dominant than the left side in their mid cervical regions however the distal left vertebral artery (intradural segment becomes slightly larger in caliber. Tiny calcification along the proximal intradural portion of the right vertebral artery. Basilar artery is patent. The A1 and M1 segments patent. The distal branches of the anterior and middle cerebral arteries are patent and appear relatively symmetric. There is hypoplasia of the left P1 segment with origin of the left posterior cerebral artery.. No evidence of large aneurysm nor vascular malformation. Note is made of an elliptical shaped low-attenuation lesion left lobe thyroid gland for which thyroid ultrasound follow-up is recommended. Small right and tiny left apical bleb changes are present. There also appears to be some minimal biapical pleural thickening left greater than right IMPRESSION: Minor soft and calcified plaque changes left carotid bifurcation with the mid minimal calcified plaque changes both carotid siphons and proximal intradural portion of the right vertebral artery. No evidence of dissection occlusion nor significant stenosis. No evidence of large aneurysm nor vascular malformation.. Elliptical shaped low-attenuation lesion left lobe thyroid gland for which follow-up ultrasound of the thyroid gland recommended.
--- NOTE | 2018-02-20 14:56 | CP.PCM.CON ---
History of Present Illness - History of Present Illness History of Present Illness: 77 yr old male , originally from [place] who was seen normal at 6 am, went out to walk the dog, and was seen back at 7 am. At this time, the family noted that he had aphasia and right sided facial droop with some right arm weakness. In ther ER, there was no right sided facial droop, but patient was aphasic. He was given TPA and transported to ICU. NIHSS: 7. Patient is now able to name, repeat, and tell me his name at 2 pm. THere is however, some question as to whether he developed a facial droop between tpa administration and now. We have ordered stat ct head for patient. PMH: HTN, DM PSH: NONE FH/SH: From [place], ALL: NKDA ON exam: Awake, alert, and oriented to name only. PERRL. Right sided facial droop. +dysarthria. Right sided mild weakness, no drift.All other muscle groups 5/5. gait not tested. +2 dtr ul and ll bl. Toes downgoing. No clonus. Past Patient History - Infectious Disease Hx of Infectious Diseases: None - Past Medical History & Family History Past Medical History?: Yes - Past Social History Smoking Status: Former Smoker - CARDIAC Hx Cardiac Disorders: Yes - PULMONARY Hx Respiratory Disorders: No - NEUROLOGICAL Hx Alzheimer's Disease: No Hx Transient Ischemic Attacks (TIA): Yes (Admitted last month) - HEENT Hx HEENT Problems: No - RENAL Hx Chronic Kidney Disease: No - ENDOCRINE/METABOLIC Hx Endocrine Disorders: Yes - HEMATOLOGICAL/ONCOLOGICAL Hx Blood Disorders: No - INTEGUMENTARY Other/Comment: Vetiligo - MUSCULOSKELETAL/RHEUMATOLOGICAL Hx Musculoskeletal Disorders: Yes Hx Falls: Yes - GASTROINTESTINAL Hx Gastrointestinal Disorders: Yes Hx Nausea: Yes Hx Vomiting: Yes - GENITOURINARY/GYNECOLOGICAL Hx Genitourinary Disorders: Yes Hx Prostate Problems: Yes (BPH) - PSYCHIATRIC Hx Psychophysiologic Disorder: No Hx Substance Use: No - SURGICAL HISTORY Hx Cholecystectomy: Yes - ANESTHESIA Hx Malignant Hyperthermia: No Meds Allergies/Adverse Reactions: Allergies Allergy/AdvReac Type Severity Reaction Status Date / Time No Known Allergies Allergy Verified 05/24/17 19:51 - Medications Medications: Current Medications Enalaprilat (Vasotec) 2.5 mg IVP Q6 PRN PRN Reason: SBP> 150 Last Admin: 02/20/18 10:28 Dose: 2.5 mg Sodium Chloride (Sodium Chloride 0.9%) 1,000 mls @ 100 mls/hr IV .Q10H CANDELARIA Last Admin: 02/20/18 09:08 Dose: 100 mls/hr Lactated Ringer's (Lactated Ringer's) 1,000 mls @ 60 mls/hr IV .[id number] CANDELARIA Sodium Chloride (Sodium Chloride 0.9%) 1,000 mls @ 100 mls/hr IV .Q10H CANDELARIA Stop: 02/21/18 11:46 Insulin Human Lispro (Humalog) 0 units SC ACCU-CHECK CANDELARIA; Protocol Last Admin: 02/20/18 12:17 Dose: Not Given Results - Vital Signs Recent Vital Signs: Last Vital Signs Temp 87.8 F L 02/20/18 10:45 Pulse 88 02/20/18 12:54 Resp 16 02/20/18 12:54 BP 150/79 02/20/18 12:54 Pulse Ox 95 02/20/18 12:54 - Labs Result Diagrams: 02/21/18 05:30 02/21/18 05:30 Labs: Laboratory Results - last 24 hr 02/20/18 02/20/18 02/20/18 08:40 08:40 08:40 WBC 5.6 RBC 4.56 Hgb 14.4 Hct 43.2 MCV 94.7 H D MCH 31.5 H MCHC 33.3 RDW 13.5 Plt Count 503 H MPV 7.4 Neut % (Auto) 63.6 Lymph % (Auto) 25.7 [place] % (Auto) 7.9 Eos % (Auto) 2.1 Baso % (Auto) 0.7 Neut # (Auto) 3.6 Lymph # (Auto) 1.4 [place] # (Auto) 0.4 Eos # (Auto) 0.1 Baso # (Auto) 0.0 PT INR APTT Sodium 140 Potassium 3.5 L Chloride 104 Carbon Dioxide 25 Anion Gap 15 BUN 16 Creatinine 0.7 L Est GFR ( Amer) > 60 Est GFR (Non-Af Amer) > 60 POC Glucose (mg/dL) 113 H Random Glucose 116 H Calcium 8.8 Total Bilirubin 2.3 H AST 35 ALT 24 Alkaline Phosphatase 163 H D Troponin I < 0.0120 Total Protein 8.0 Albumin 4.2 Globulin 3.7 Albumin/Globulin Ratio 1.1 Triglycerides 93 Cholesterol 165 LDL Cholesterol Direct 102 HDL Cholesterol 59 Blood Type Antibody Screen BBK History Checked 02/20/18 02/20/18 02/20/18 08:40 08:40 12:13 WBC RBC Hgb Hct MCV MCH MCHC RDW Plt Count MPV Neut % (Auto) Lymph % (Auto) [place] % (Auto) Eos % (Auto) Baso % (Auto) Neut # (Auto) Lymph # (Auto) [place] # (Auto) Eos # (Auto) Baso # (Auto) PT 12.5 INR 1.1 APTT 36.3 Sodium Potassium Chloride Carbon Dioxide Anion Gap BUN Creatinine Est GFR ( Amer) Est GFR (Non-Af Amer) POC Glucose (mg/dL) 106 Random Glucose Calcium Total Bilirubin AST ALT Alkaline Phosphatase Troponin I Total Protein Albumin Globulin Albumin/Globulin Ratio Triglycerides Cholesterol LDL Cholesterol Direct HDL Cholesterol Blood Type O POSITIVE Antibody Screen Negative BBK History Checked No verified bt Assessment & Plan - Assessment and Plan (Free Text) Assessment: CTA head: no large vessel occlusion CT: pending. Lipid profile: 77 yr old male with new ischemic stroke, most likely left frontal lobe, s/p TPA. NIHSS: 7 It is suspicious that his right sided facial droop reappeared so will get repeat ct head. Plan: 1. Admit to ICU 2. Keep bp between 170-190 systolic. 3. IV fluids ns at 100 ccs per hour 4. Repeat CT head in 24 hours 5. ECho 6. start aspirin thursday am 7. CTA head and neck reviewed: no intervention at this point. 8. neuro checks q 2 hours 9. MRI Brain shannon 10. PT ST OT Thankyou Dr. pimentel
--- NOTE | 2018-02-20 15:25 | RAD ---
Date of service: 02/20/2018 HISTORY: Code Stroke COMPARISON: Comparison made with chest radiograph 03/18/2017 FINDINGS: LUNGS: Mild bibasilar atelectasis left greater than right.; Developing left lower lobe infiltrate could be excluded with follow-up radiographs. Minimal biapical pleural thickening PLEURA: No significant pleural effusion identified, no pneumothorax apparent. CARDIOVASCULAR: Mild aortic atherosclerotic calcification present. Cardiomegaly.. No pulmonary vascular congestion. OSSEOUS STRUCTURES: No significant abnormalities. VISUALIZED UPPER ABDOMEN: Normal. OTHER FINDINGS: None. IMPRESSION: Mild bibasilar atelectasis left greater than right.; Developing left lower lobe infiltrate could be excluded with follow-up radiographs. Minimal biapical pleural thickening
[2018-02-20] MEDS: Enalaprilat 2.5 MG/2 ML IVP SCH ×2 (16:42→22:04)
--- NOTE | 2018-02-20 16:53 | CT ---
Date of service: 02/20/2018 PROCEDURE: CT HEAD WITHOUT CONTRAST. HISTORY: stroke COMPARISON: Comparison made with prior CT scan and CTA of the brain obtained earlier same day. This exam comparison also made with prior MRI of the brain dated 02/09/2017. TECHNIQUE: Axial computed tomography images were obtained through the head/brain without intravenous contrast. Radiation dose: Total exam DLP = 771.17 mGy-cm. This CT exam was performed using one or more of the following dose reduction techniques: Automated exposure control, adjustment of the mA and/or kV according to patient size, and/or use of iterative reconstruction technique. FINDINGS: HEMORRHAGE: No acute parenchymal, subarachnoid nor extra-axial hemorrhage.. BRAIN: Redemonstrated are mild diffuse/confluent chronic periventricular white matter ischemic changes with more discrete chronic infarct in the right posterior parietal subcortical white matter. Previously noted multiple smaller chronic infarct changes scattered about the deep and subcortical white matter, right lateral basal ganglia and left inferior half cerebellar hemisphere less well seen on this study as compared to high-resolution MRI. Note that the possibility of a small hyperacute infarct cannot be excluded on this exam Moderate generalized volume loss unchanged. VENTRICLES: No obstructive hydrocephalus. CALVARIUM: No acute calvarial fractures. Redemonstrated is a small exostosis arising from the right parasagittal mid-upper frontal calvarium.. PARANASAL SINUSES: Minimal mucosal thickening noted within a few ethmoid air cells. MASTOID AIR CELLS: Unremarkable as visualized. No inflammatory changes. OTHER FINDINGS: None. IMPRESSION: No acute intracranial hemorrhage. Mild chronic periventricular white matter ischemic changes. Multiple smaller of chronic lacunar-type infarcts scattered about the deep and subcortical white matter as well as right lateral basal ganglia and left cerebellar hemisphere less well seen on this study as detailed above. Note that the possibility of a small hyperacute infarct cannot be excluded based on this study. Moderate generalized volume loss.
[2018-02-20] MEDS ORDERED: Potassium Ch 20mEq in D5-1/2NS 1,000 ML IV SCH (18:30)
[2018-02-20 19:00] LABS: HEMOGLOBIN 15.1 g/dL (12.0-18.0); MEAN CELL VOLUME 92.5 fl (80.0-94.0); MEAN CORPUSCULAR HEMOGLOBIN 31.2 pg (27.0-31.0); MEAN CORPUSCULAR HGB CONC 33.7 g/dL (33.0-37.0); RBC 4.85 Mil/uL (4.40-5.90); RED CELL DISTRIBUTION WIDTH 13.4 % (11.5-14.5); WHITE BLOOD COUNT 7.8 K/uL (4.8-10.8)
--- NOTE | 2018-02-21 00:08 | CARD ---
APPROVED REPORT Date of service: 02/20/2018 EXAM: Two-dimensional and M-mode echocardiogram with Doppler and color Doppler. Other Information Quality : GoodRhythm : NSR INDICATION CVA/TIA 2D DIMENSIONS IVSd1.78 (0.7-1.1cm)LVDd4.23 (3.9-5.9cm) LVOT Diameter2.18 (1.8-2.4cm)PWd1.17 (0.7-1.1cm) IVSs1.90 (0.8-1.2cm)LVDs2.68 (2.5-4.0cm) FS (%) 36.7 %PWs1.88 (0.8-1.2cm) M-Mode DIMENSIONS Left Atrium (MM)4.30 (2.5-4.0cm)Aortic Root3.24 (2.2-3.7cm) Aortic Valve AoV Peak Mnkpkqje982.4cm/sAoV VTI34.4cmAO Peak GR.5mmHg LVOT Peak Hkxmiicb38.8cm/sLVOT VTI25.50cmAO Mean GR.3mmHg LEONA (VMAX)1.90ra9LIT (VTI)1.64cm2 Mitral Valve MV E Heqphpyc50.7cm/sMV E Peak Gr.14mmHgMV DECEL [id number] MV A Xnkasjyw67.8cm/sMV HEJ77rhK/A ratio0.6 MVA (PHT)2.56cm2 TDI Lateral E' Peak V5.95cm/sMedial E' Peak V4.32cm/sE/Lateral E'9.5 E/Medial E'13.1 Pulmonary Valve PV Peak Lgebribb42.0cm/s Tricuspid Valve TR Peak Kudlykpb838af/sTR Peak Gr.57wcSlIXWK42yhIk LEFT VENTRICLE The left ventricle is normal size. There is mild concentric left ventricular hypertrophy. The left ventricular systolic function is normal. The estimated ejection fraction is 60-65% No regional wall motion abnormalities noted.. Transmitral Doppler flow pattern is Grade I-abnormal relaxation pattern. No left ventricle thrombus noted on this study. There is no ventricular septal defect visualized. There is no left ventricular aneurysm. There is no mass noted in the left ventricle. RIGHT VENTRICLE The right ventricle is normal size. There is normal right ventricular wall thickness. The right ventricular systolic function is normal. ATRIA The left atrium is mildly dilated. The right atrium size is normal. The interatrial septum is intact with no evidence for an atrial septal defect. AORTIC VALVE The aortic valve is normal in structure. Mild aortic regurgitation is present. There is no aortic valvular stenosis. There is no aortic valvular vegetation. MITRAL VALVE The mitral valve is normal in structure. There is no evidence of mitral valve prolapse. There is no mitral valve stenosis. There is trace mitral valve regurgitation noted. TRICUSPID VALVE The tricuspid valve is normal in structure. There is mild tricuspid valve regurgitation noted. RVSP is calculated at 23 mm Hg. There is no tricuspid valve prolapse or vegetation. There is no tricuspid valve stenosis. PULMONIC VALVE The pulmonary valve is normal in structure. There is no pulmonic valvular regurgitation. There is no pulmonic valvular stenosis. GREAT VESSELS The aortic root is normal in size. The ascending aorta is normal in size. The pulmonary artery is normal. The IVC is normal in size and collapses >50% with inspiration. PERICARDIAL EFFUSION There is no pericardial effusion. There is no pleural effusion. <Conclusion> There is mild concentric left ventricular hypertrophy. The estimated ejection fraction is 60-65% Transmitral Doppler flow pattern is Grade I-abnormal relaxation pattern. The left atrium is mildly dilated. Mild aortic regurgitation is present. There is trace mitral valve regurgitation noted. There is mild tricuspid valve regurgitation noted. RVSP is calculated at 23 mm Hg.
[2018-02-21] MEDS: Enalaprilat 2.5 MG/2 ML IVP SCH (04:09)
[2018-02-21] MEDS: Insulin Lispro (humaLOG) 100 Units/ml Inj SC SCH ×3 (06:35→17:08)
[2018-02-21 06:37] LABS: BASO % 0.7 % (0.0-2.0); EOS # 0.1 K/uL (0.0-0.7); EOS % 1.4 % (0.0-4.0); HEMOGLOBIN 13.9 g/dL (12.0-18.0); LYMPH # 1.1 K/uL (1.0-4.3); LYMPH % 17.5 % (20.0-40.0); MEAN CELL VOLUME 94.6 fl (80.0-94.0); MEAN CORPUSCULAR HEMOGLOBIN 31.5 pg (27.0-31.0); MEAN CORPUSCULAR HGB CONC 33.3 g/dL (33.0-37.0); MEAN PLATELET VOLUME 7.8 fl (7.2-11.7); MONO # 0.6 K/uL (0.0-0.8); NEUT # 4.7 K/uL (1.8-7.0); NEUT % 71.4 % (50.0-75.0); NRBC % 0.1 % (0.0-0.0); RBC 4.42 Mil/uL (4.40-5.90); RED CELL DISTRIBUTION WIDTH 13.4 % (11.5-14.5); WHITE BLOOD COUNT 6.5 K/uL (4.8-10.8)
[2018-02-21 06:48] LABS: BLOOD UREA NITROGEN 16 mg/dl (9-20); CALCIUM 8.6 mg/dL (8.4-10.2); GFR NON-AFRICAN AMERICAN > 60; HDL CHOLESTEROL 47 MG/DL (30-70)
[2018-02-21 06:59] LABS: LDL CHOLESTEROL 90 mg/dL (0-129)
[2018-02-21] MEDS ORDERED: Potassium Chloride 20 mEq 100 ML IVPB ONE (08:00)
--- NOTE | 2018-02-21 08:50 | CP.CCUPN ---
CCU Subjective - Physician Review Events Since Last Encounter (Free Text): 02/21/18 08:47 alert and oriented, able to talk now, not clearly through, no sob, CCU Objective - Vital Signs / Intake & Output Vital Signs (Last 4 hours): Vital Signs Pulse Resp BP Pulse Ox 02/21/18 06:00 53 L 16 125/61 93 L Intake and Output (Last 8hrs): Intake & Output 02/20/18 02/21/18 02/21/18 22:59 06:59 14:59 Intake Total 560 480 120 Output Total 1150 175 Balance -590 305 120 Weight 140 lb Intake: IV 560 480 120 Output: Urine 1150 175 Urine, Voided 1150 175 Other: # Voids Urine, Voided 1 1 - Physical Exam Narrative Physical Exam (Free Text): 02/21/18 08:48 P/E Neck: No JVD Lungs: no ronchi, crackles abdomen: soft, non tender ext : no edema - Medications Active Medications: Active Medications Generic Name Dose Route Start Last Admin Trade Name Freq PRN Reason Stop Dose Admin Acetaminophen 650 mg 02/20/18 17:30 02/20/18 19:38 Tylenol 650 Mg Supp [place] 650 mg ONCE PRN Administration Headache Atorvastatin Calcium 40 mg 02/21/18 09:00 Lipitor PO DAILY CANDELARIA Sodium Chloride 1,000 mls @ 100 mls/hr 02/20/18 08:45 02/20/18 13:00 Sodium Chloride 0.9% IV 100 mls/hr .Q10H CANDELARIA Administration Sodium Chloride 1,000 mls @ 100 mls/hr 02/20/18 11:45 Sodium Chloride 0.9% IV 02/21/18 11:46 .Q10H CANDELARIA Potassium Chloride/Dextrose/Sod Cl 1,000 mls @ 60 mls/hr 02/20/18 18:30 02/20/18 20:57 Potassium Chl 20 Meq In D5-1/2ns IV 02/21/18 18:23 60 mls/hr .[id number] CANDELARIA Administration Potassium Chloride 100 mls @ 50 mls/hr 02/21/18 08:00 Potassium Chloride 20 Meq/100 Ml IVPB 02/21/18 09:59 ONCE ONE Insulin Human Lispro 0 units 02/20/18 12:00 02/21/18 06:35 Humalog SC Not Given ACCU-CHECK CANDELARIA Protocol - Patient Studies Lab Studies: Lab Studies 02/21/18 02/21/18 02/21/18 Range/Units 05:54 05:30 05:30 WBC 6.5 (4.8-10.8) K/uL RBC 4.42 (4.40-5.90) Mil/uL Hgb 13.9 (12.0-18.0) g/dL Hct 41.8 (35.0-51.0) % MCV 94.6 H D (80.0-94.0) fl MCH 31.5 H (27.0-31.0) pg MCHC 33.3 (33.0-37.0) g/dL RDW 13.4 (11.5-14.5) % Plt Count 451 H (130-400) K/uL MPV 7.8 (7.2-11.7) fl Neut % (Auto) 71.4 (50.0-75.0) % Lymph % (Auto) 17.5 L (20.0-40.0) % [place] % (Auto) 9.0 (0.0-10.0) % Eos % (Auto) 1.4 (0.0-4.0) % Baso % (Auto) 0.7 (0.0-2.0) % Neut # (Auto) 4.7 (1.8-7.0) K/uL Lymph # (Auto) 1.1 (1.0-4.3) K/uL [place] # (Auto) 0.6 (0.0-0.8) K/uL Eos # (Auto) 0.1 (0.0-0.7) K/uL Baso # (Auto) 0.0 (0.0-0.2) K/uL PT (9.8-13.1) Seconds INR APTT (25.6-37.1) Seconds Sodium 137 (132-148) mmol/l Potassium 3.4 L (3.6-5.0) MMOL/L Chloride 103 (98-107) mmol/L Carbon Dioxide 26 (22-30) mmol/L Anion Gap 11 (10-20) BUN 16 (9-20) mg/dl Creatinine 0.8 (0.8-1.5) mg/dl Est GFR ( Amer) > 60 Est GFR (Non-Af Amer) > 60 POC Glucose (mg/dL) 103 (65-110) mg/dL Random Glucose 111 H (75-110) mg/dL Hemoglobin A1c (4.2-6.5) % Calcium 8.6 (8.4-10.2) mg/dL Total Bilirubin (0.2-1.3) mg/dl AST (17-59) U/L ALT (21-72) U/L Alkaline Phosphatase (38-126) U/L Troponin I (0.00-0.120) ng/mL Total Protein (6.3-8.2) G/DL Albumin (3.5-5.0) g/dL Globulin (2.2-3.9) gm/dL Albumin/Globulin Ratio (1.0-2.1) Triglycerides 102 (0-149) mg/DL Cholesterol 151 (0-199) mg/dL LDL Cholesterol Direct 90 (0-129) mg/dL HDL Cholesterol 47 (30-70) MG/DL Urine Color (YELLOW) Urine Clarity (Clear) Urine pH (5.0-8.0) Ur Specific [place] (1.003-1.030) Urine Protein (NEGATIVE) mg/dL Urine Glucose (UA) (NEGATIVE) mg/dL Urine Ketones (NEGATIVE) mg/dL Urine Blood (NEGATIVE) Urine Nitrate (NEGATIVE) Urine Bilirubin (NEGATIVE) Urine Urobilinogen (0.2-1.0) mg/dL Ur Leukocyte Esterase (Negative) [place]/uL Urine RBC (Auto) (0-3) /hpf Urine Microscopic WBC (0-5) /hpf Ur Squamous Epith Cells (0-5) /hpf Blood Type Blood Type Confirm Antibody Screen BBK History Checked 02/20/18 02/20/18 02/20/18 Range/Units 23:13 18:30 18:30 WBC 7.8 (4.8-10.8) K/uL RBC 4.85 (4.40-5.90) Mil/uL Hgb 15.1 (12.0-18.0) g/dL Hct 44.8 (35.0-51.0) % MCV 92.5 D (80.0-94.0) fl MCH 31.2 H (27.0-31.0) pg MCHC 33.7 (33.0-37.0) g/dL RDW 13.4 (11.5-14.5) % Plt Count 446 H (130-400) K/uL MPV (7.2-11.7) fl Neut % (Auto) (50.0-75.0) % Lymph % (Auto) (20.0-40.0) % [place] % (Auto) (0.0-10.0) % Eos % (Auto) (0.0-4.0) % Baso % (Auto) (0.0-2.0) % Neut # (Auto) (1.8-7.0) K/uL Lymph # (Auto) (1.0-4.3) K/uL [place] # (Auto) (0.0-0.8) K/uL Eos # (Auto) (0.0-0.7) K/uL Baso # (Auto) (0.0-0.2) K/uL PT (9.8-13.1) Seconds INR APTT (25.6-37.1) Seconds Sodium (132-148) mmol/l Potassium (3.6-5.0) MMOL/L Chloride (98-107) mmol/L Carbon Dioxide (22-30) mmol/L Anion Gap (10-20) BUN (9-20) mg/dl Creatinine (0.8-1.5) mg/dl Est GFR ( Amer) Est GFR (Non-Af Amer) POC Glucose (mg/dL) 105 (65-110) mg/dL Random Glucose (75-110) mg/dL Hemoglobin A1c (4.2-6.5) % Calcium (8.4-10.2) mg/dL Total Bilirubin (0.2-1.3) mg/dl AST (17-59) U/L ALT (21-72) U/L Alkaline Phosphatase (38-126) U/L Troponin I (0.00-0.120) ng/mL Total Protein (6.3-8.2) G/DL Albumin (3.5-5.0) g/dL Globulin (2.2-3.9) gm/dL Albumin/Globulin Ratio (1.0-2.1) Triglycerides (0-149) mg/DL Cholesterol (0-199) mg/dL LDL Cholesterol Direct (0-129) mg/dL HDL Cholesterol (30-70) MG/DL Urine Color (YELLOW) Urine Clarity (Clear) Urine pH (5.0-8.0) Ur Specific [place] (1.003-1.030) Urine Protein (NEGATIVE) mg/dL Urine Glucose (UA) (NEGATIVE) mg/dL Urine Ketones (NEGATIVE) mg/dL Urine Blood (NEGATIVE) Urine Nitrate (NEGATIVE) Urine Bilirubin (NEGATIVE) Urine Urobilinogen (0.2-1.0) mg/dL Ur Leukocyte Esterase (Negative) [place]/uL Urine RBC (Auto) (0-3) /hpf Urine Microscopic WBC (0-5) /hpf Ur Squamous Epith Cells (0-5) /hpf Blood Type Blood Type Confirm O POSITIVE Antibody Screen BBK History Checked 02/20/18 02/20/18 02/20/18 Range/Units 16:57 14:30 12:13 WBC (4.8-10.8) K/uL RBC (4.40-5.90) Mil/uL Hgb (12.0-18.0) g/dL Hct (35.0-51.0) % MCV (80.0-94.0) fl MCH (27.0-31.0) pg MCHC (33.0-37.0) g/dL RDW (11.5-14.5) % Plt Count (130-400) K/uL MPV (7.2-11.7) fl Neut % (Auto) (50.0-75.0) % Lymph % (Auto) (20.0-40.0) % [place] % (Auto) (0.0-10.0) % Eos % (Auto) (0.0-4.0) % Baso % (Auto) (0.0-2.0) % Neut # (Auto) (1.8-7.0) K/uL Lymph # (Auto) (1.0-4.3) K/uL [place] # (Auto) (0.0-0.8) K/uL Eos # (Auto) (0.0-0.7) K/uL Baso # (Auto) (0.0-0.2) K/uL PT (9.8-13.1) Seconds INR APTT (25.6-37.1) Seconds Sodium (132-148) mmol/l Potassium (3.6-5.0) MMOL/L Chloride (98-107) mmol/L Carbon Dioxide (22-30) mmol/L Anion Gap (10-20) BUN (9-20) mg/dl Creatinine (0.8-1.5) mg/dl Est GFR ( Amer) Est GFR (Non-Af Amer) POC Glucose (mg/dL) 105 106 (65-110) mg/dL Random Glucose (75-110) mg/dL Hemoglobin A1c (4.2-6.5) % Calcium (8.4-10.2) mg/dL Total Bilirubin (0.2-1.3) mg/dl AST (17-59) U/L ALT (21-72) U/L Alkaline Phosphatase (38-126) U/L Troponin I (0.00-0.120) ng/mL Total Protein (6.3-8.2) G/DL Albumin (3.5-5.0) g/dL Globulin (2.2-3.9) gm/dL Albumin/Globulin Ratio (1.0-2.1) Triglycerides (0-149) mg/DL Cholesterol (0-199) mg/dL LDL Cholesterol Direct (0-129) mg/dL HDL Cholesterol (30-70) MG/DL Urine Color Straw (YELLOW) Urine Clarity Clear (Clear) Urine pH 7.0 (5.0-8.0) Ur Specific [place] 1.009 (1.003-1.030) Urine Protein Negative (NEGATIVE) mg/dL Urine Glucose (UA) Neg (NEGATIVE) mg/dL Urine Ketones Negative (NEGATIVE) mg/dL Urine Blood Negative (NEGATIVE) Urine Nitrate Negative (NEGATIVE) Urine Bilirubin Negative (NEGATIVE) Urine Urobilinogen 0.2-1.0 (0.2-1.0) mg/dL Ur Leukocyte Esterase Neg (Negative) [place]/uL Urine RBC (Auto) < 1 (0-3) /hpf Urine Microscopic WBC < 1 (0-5) /hpf Ur Squamous Epith Cells < 1 (0-5) /hpf Blood Type Blood Type Confirm Antibody Screen BBK History Checked 02/20/18 02/20/18 02/20/18 Range/Units 10:20 08:40 08:40 WBC (4.8-10.8) K/uL RBC (4.40-5.90) Mil/uL Hgb (12.0-18.0) g/dL Hct (35.0-51.0) % MCV (80.0-94.0) fl MCH (27.0-31.0) pg MCHC (33.0-37.0) g/dL RDW (11.5-14.5) % Plt Count (130-400) K/uL MPV (7.2-11.7) fl Neut % (Auto) (50.0-75.0) % Lymph % (Auto) (20.0-40.0) % [place] % (Auto) (0.0-10.0) % Eos % (Auto) (0.0-4.0) % Baso % (Auto) (0.0-2.0) % Neut # (Auto) (1.8-7.0) K/uL Lymph # (Auto) (1.0-4.3) K/uL [place] # (Auto) (0.0-0.8) K/uL Eos # (Auto) (0.0-0.7) K/uL Baso # (Auto) (0.0-0.2) K/uL PT 12.5 (9.8-13.1) Seconds INR 1.1 APTT 36.3 (25.6-37.1) Seconds Sodium (132-148) mmol/l Potassium (3.6-5.0) MMOL/L Chloride (98-107) mmol/L Carbon Dioxide (22-30) mmol/L Anion Gap (10-20) BUN (9-20) mg/dl Creatinine (0.8-1.5) mg/dl Est GFR ( Amer) Est GFR (Non-Af Amer) POC Glucose (mg/dL) (65-110) mg/dL Random Glucose (75-110) mg/dL Hemoglobin A1c 5.8 (4.2-6.5) % Calcium (8.4-10.2) mg/dL Total Bilirubin (0.2-1.3) mg/dl AST (17-59) U/L ALT (21-72) U/L Alkaline Phosphatase (38-126) U/L Troponin I (0.00-0.120) ng/mL Total Protein (6.3-8.2) G/DL Albumin (3.5-5.0) g/dL Globulin (2.2-3.9) gm/dL Albumin/Globulin Ratio (1.0-2.1) Triglycerides (0-149) mg/DL Cholesterol (0-199) mg/dL LDL Cholesterol Direct (0-129) mg/dL HDL Cholesterol (30-70) MG/DL Urine Color (YELLOW) Urine Clarity (Clear) Urine pH (5.0-8.0) Ur Specific [place] (1.003-1.030) Urine Protein (NEGATIVE) mg/dL Urine Glucose (UA) (NEGATIVE) mg/dL Urine Ketones (NEGATIVE) mg/dL Urine Blood (NEGATIVE) Urine Nitrate (NEGATIVE) Urine Bilirubin (NEGATIVE) Urine Urobilinogen (0.2-1.0) mg/dL Ur Leukocyte Esterase (Negative) [place]/uL Urine RBC (Auto) (0-3) /hpf Urine Microscopic WBC (0-5) /hpf Ur Squamous Epith Cells (0-5) /hpf Blood Type O POSITIVE Blood Type Confirm Antibody Screen Negative BBK History Checked No verified bt 02/20/18 02/20/18 Range/Units 08:40 08:40 WBC 5.6 (4.8-10.8) K/uL RBC 4.56 (4.40-5.90) Mil/uL Hgb 14.4 (12.0-18.0) g/dL Hct 43.2 (35.0-51.0) % MCV 94.7 H D (80.0-94.0) fl MCH 31.5 H (27.0-31.0) pg MCHC 33.3 (33.0-37.0) g/dL RDW 13.5 (11.5-14.5) % Plt Count 503 H (130-400) K/uL MPV 7.4 (7.2-11.7) fl Neut % (Auto) 63.6 (50.0-75.0) % Lymph % (Auto) 25.7 (20.0-40.0) % [place] % (Auto) 7.9 (0.0-10.0) % Eos % (Auto) 2.1 (0.0-4.0) % Baso % (Auto) 0.7 (0.0-2.0) % Neut # (Auto) 3.6 (1.8-7.0) K/uL Lymph # (Auto) 1.4 (1.0-4.3) K/uL [place] # (Auto) 0.4 (0.0-0.8) K/uL Eos # (Auto) 0.1 (0.0-0.7) K/uL Baso # (Auto) 0.0 (0.0-0.2) K/uL PT (9.8-13.1) Seconds INR APTT (25.6-37.1) Seconds Sodium 140 (132-148) mmol/l Potassium 3.5 L (3.6-5.0) MMOL/L Chloride 104 (98-107) mmol/L Carbon Dioxide 25 (22-30) mmol/L Anion Gap 15 (10-20) BUN 16 (9-20) mg/dl Creatinine 0.7 L (0.8-1.5) mg/dl Est GFR ( Amer) > 60 Est GFR (Non-Af Amer) > 60 POC Glucose (mg/dL) (65-110) mg/dL Random Glucose 116 H (75-110) mg/dL Hemoglobin A1c (4.2-6.5) % Calcium 8.8 (8.4-10.2) mg/dL Total Bilirubin 2.3 H (0.2-1.3) mg/dl AST 35 (17-59) U/L ALT 24 (21-72) U/L Alkaline Phosphatase 163 H D (38-126) U/L Troponin I < 0.0120 (0.00-0.120) ng/mL Total Protein 8.0 (6.3-8.2) G/DL Albumin 4.2 (3.5-5.0) g/dL Globulin 3.7 (2.2-3.9) gm/dL Albumin/Globulin Ratio 1.1 (1.0-2.1) Triglycerides 93 (0-149) mg/DL Cholesterol 165 (0-199) mg/dL LDL Cholesterol Direct 102 (0-129) mg/dL HDL Cholesterol 59 (30-70) MG/DL Urine Color (YELLOW) Urine Clarity (Clear) Urine pH (5.0-8.0) Ur Specific [place] (1.003-1.030) Urine Protein (NEGATIVE) mg/dL Urine Glucose (UA) (NEGATIVE) mg/dL Urine Ketones (NEGATIVE) mg/dL Urine Blood (NEGATIVE) Urine Nitrate (NEGATIVE) Urine Bilirubin (NEGATIVE) Urine Urobilinogen (0.2-1.0) mg/dL Ur Leukocyte Esterase (Negative) [place]/uL Urine RBC (Auto) (0-3) /hpf Urine Microscopic WBC (0-5) /hpf Ur Squamous Epith Cells (0-5) /hpf Blood Type Blood Type Confirm Antibody Screen BBK History Checked Laboratory Results - last 24 hr 02/20/18 02/20/18 02/20/18 08:40 08:40 08:40 WBC 5.6 RBC 4.56 Hgb 14.4 Hct 43.2 MCV 94.7 H D MCH 31.5 H MCHC 33.3 RDW 13.5 Plt Count 503 H MPV 7.4 Neut % (Auto) 63.6 Lymph % (Auto) 25.7 [place] % (Auto) 7.9 Eos % (Auto) 2.1 Baso % (Auto) 0.7 Neut # (Auto) 3.6 Lymph # (Auto) 1.4 [place] # (Auto) 0.4 Eos # (Auto) 0.1 Baso # (Auto) 0.0 PT 12.5 INR 1.1 APTT 36.3 Sodium 140 Potassium 3.5 L Chloride 104 Carbon Dioxide 25 Anion Gap 15 BUN 16 Creatinine 0.7 L Est GFR ( Amer) > 60 Est GFR (Non-Af Amer) > 60 POC Glucose (mg/dL) Random Glucose 116 H Hemoglobin A1c Calcium 8.8 Total Bilirubin 2.3 H AST 35 ALT 24 Alkaline Phosphatase 163 H D Troponin I < 0.0120 Total Protein 8.0 Albumin 4.2 Globulin 3.7 Albumin/Globulin Ratio 1.1 Triglycerides 93 Cholesterol 165 LDL Cholesterol Direct 102 HDL Cholesterol 59 Urine Color Urine Clarity Urine pH Ur Specific [place] Urine Protein Urine Glucose (UA) Urine Ketones Urine Blood Urine Nitrate Urine Bilirubin Urine Urobilinogen Ur Leukocyte Esterase Urine RBC (Auto) Urine Microscopic WBC Ur Squamous Epith Cells Blood Type Blood Type Confirm Antibody Screen BBK History Checked 02/20/18 02/20/18 02/20/18 08:40 10:20 12:13 WBC RBC Hgb Hct MCV MCH MCHC RDW Plt Count MPV Neut % (Auto) Lymph % (Auto) [place] % (Auto) Eos % (Auto) Baso % (Auto) Neut # (Auto) Lymph # (Auto) [place] # (Auto) Eos # (Auto) Baso # (Auto) PT INR APTT Sodium Potassium Chloride Carbon Dioxide Anion Gap BUN Creatinine Est GFR ( Amer) Est GFR (Non-Af Amer) POC Glucose (mg/dL) 106 Random Glucose Hemoglobin A1c 5.8 Calcium Total Bilirubin AST ALT Alkaline Phosphatase Troponin I Total Protein Albumin Globulin Albumin/Globulin Ratio Triglycerides Cholesterol LDL Cholesterol Direct HDL Cholesterol Urine Color Urine Clarity Urine pH Ur Specific [place] Urine Protein Urine Glucose (UA) Urine Ketones Urine Blood Urine Nitrate Urine Bilirubin Urine Urobilinogen Ur Leukocyte Esterase Urine RBC (Auto) Urine Microscopic WBC Ur Squamous Epith Cells Blood Type O POSITIVE Blood Type Confirm Antibody Screen Negative BBK History Checked No verified bt 02/20/18 02/20/18 02/20/18 14:30 16:57 18:30 WBC RBC Hgb Hct MCV MCH MCHC RDW Plt Count MPV Neut % (Auto) Lymph % (Auto) [place] % (Auto) Eos % (Auto) Baso % (Auto) Neut # (Auto) Lymph # (Auto) [place] # (Auto) Eos # (Auto) Baso # (Auto) PT INR APTT Sodium Potassium Chloride Carbon Dioxide Anion Gap BUN Creatinine Est GFR ( Amer) Est GFR (Non-Af Amer) POC Glucose (mg/dL) 105 Random Glucose Hemoglobin A1c Calcium Total Bilirubin AST ALT Alkaline Phosphatase Troponin I Total Protein Albumin Globulin Albumin/Globulin Ratio Triglycerides Cholesterol LDL Cholesterol Direct HDL Cholesterol Urine Color Straw Urine Clarity Clear Urine pH 7.0 Ur Specific [place] 1.009 Urine Protein Negative Urine Glucose (UA) Neg Urine Ketones Negative Urine Blood Negative Urine Nitrate Negative Urine Bilirubin Negative Urine Urobilinogen 0.2-1.0 Ur Leukocyte Esterase Neg Urine RBC (Auto) < 1 Urine Microscopic WBC < 1 Ur Squamous Epith Cells < 1 Blood Type Blood Type Confirm O POSITIVE Antibody Screen BBK History Checked 02/20/18 02/20/18 02/21/18 18:30 23:13 05:30 WBC 7.8 6.5 RBC 4.85 4.42 Hgb 15.1 13.9 Hct 44.8 41.8 MCV 92.5 D 94.6 H D MCH 31.2 H 31.5 H MCHC 33.7 33.3 RDW 13.4 13.4 Plt Count 446 H 451 H MPV 7.8 Neut % (Auto) 71.4 Lymph % (Auto) 17.5 L [place] % (Auto) 9.0 Eos % (Auto) 1.4 Baso % (Auto) 0.7 Neut # (Auto) 4.7 Lymph # (Auto) 1.1 [place] # (Auto) 0.6 Eos # (Auto) 0.1 Baso # (Auto) 0.0 PT INR APTT Sodium Potassium Chloride Carbon Dioxide Anion Gap BUN Creatinine Est GFR ( Amer) Est GFR (Non-Af Amer) POC Glucose (mg/dL) 105 Random Glucose Hemoglobin A1c Calcium Total Bilirubin AST ALT Alkaline Phosphatase Troponin I Total Protein Albumin Globulin Albumin/Globulin Ratio Triglycerides Cholesterol LDL Cholesterol Direct HDL Cholesterol Urine Color Urine Clarity Urine pH Ur Specific [place] Urine Protein Urine Glucose (UA) Urine Ketones Urine Blood Urine Nitrate Urine Bilirubin Urine Urobilinogen Ur Leukocyte Esterase Urine RBC (Auto) Urine Microscopic WBC Ur Squamous Epith Cells Blood Type Blood Type Confirm Antibody Screen BBK History Checked 02/21/18 02/21/18 05:30 05:54 WBC RBC Hgb Hct MCV MCH MCHC RDW Plt Count MPV Neut % (Auto) Lymph % (Auto) [place] % (Auto) Eos % (Auto) Baso % (Auto) Neut # (Auto) Lymph # (Auto) [place] # (Auto) Eos # (Auto) Baso # (Auto) PT INR APTT Sodium 137 Potassium 3.4 L Chloride 103 Carbon Dioxide 26 Anion Gap 11 BUN 16 Creatinine 0.8 Est GFR ( Amer) > 60 Est GFR (Non-Af Amer) > 60 POC Glucose (mg/dL) 103 Random Glucose 111 H Hemoglobin A1c Calcium 8.6 Total Bilirubin AST ALT Alkaline Phosphatase Troponin I Total Protein Albumin Globulin Albumin/Globulin Ratio Triglycerides 102 Cholesterol 151 LDL Cholesterol Direct 90 HDL Cholesterol 47 Urine Color Urine Clarity Urine pH Ur Specific [place] Urine Protein Urine Glucose (UA) Urine Ketones Urine Blood Urine Nitrate Urine Bilirubin Urine Urobilinogen Ur Leukocyte Esterase Urine RBC (Auto) Urine Microscopic WBC Ur Squamous Epith Cells Blood Type Blood Type Confirm Antibody Screen BBK History Checked Radiology Impressions: Radiology Impressions Chest X-Ray 02/20/18 08:37 IMPRESSION: Mild bibasilar atelectasis left greater than right.; Developing left lower lobe infiltrate could be excluded with follow-up radiographs. Minimal biapical pleural thickening Head CT 02/20/18 08:37 IMPRESSION: No acute intracranial hemorrhage. Mild chronic white matter ischemic changes with a few scattered chronic right basal nuclei less well seen on this study as compared to high-resolution MRI. Moderate generalized volume loss. Head/Neck CTA 02/20/18 13:21 IMPRESSION: Minor soft and calcified plaque changes left carotid bifurcation with the mid minimal calcified plaque changes both carotid siphons and proximal intradural portion of the right vertebral artery. No evidence of dissection occlusion nor significant stenosis. No evidence of large aneurysm nor vascular malformation.. Elliptical shaped low-attenuation lesion left lobe thyroid gland for which follow-up ultrasound of the thyroid gland recommended. Head CT 02/20/18 14:41 IMPRESSION: No acute intracranial hemorrhage. Mild chronic periventricular white matter ischemic changes. Multiple smaller of chronic lacunar-type infarcts scattered about the deep and subcortical white matter as well as right lateral basal ganglia and left cerebellar hemisphere less well seen on this study as detailed above. Note that the possibility of a small hyperacute infarct cannot be excluded based on this study. Moderate generalized volume loss. EKG/Cardiology Studies: Cardiology / EKG Studies 02/20/18 08:37 ELECTROCARDIOGRAM Stat Comment: Mode Of Transportation: Reason For Exam: Aphasia Fingerstick Blood Sugar Results: 103 Critical Care Progress Note - Nutrition Nutrition: Nutrition Category Date Time Status NPO Diet [DIET] Diets 02/20/18 Lunch Active Assessment/Plan - Assessment and Plan (Free Text) Assessment: ACute ischemic CVA" s/p TPA : 02/20, CT done later showed no heamorrhage HTN: Well controlled, on PRN Enalaprilate, tokeep SBP < 180 Labetolol not given due to sinus bradycardia IVF with K Insulin with coverage Neurology , following.
--- NOTE | 2018-02-21 10:22 | CP.PCM.PN ---
Subjective - Date & Time of Evaluation Date of Evaluation: 02/21/18 Time of Evaluation: 10:10 - Subjective Subjective: Seen sitting in chair in not acute distress. NO acute events overnight, Afebrile. Able to swallow PO meds. Passsed nurse swallow eval. Remembers everything about episode, family at bedside think patient is back to his baseline. Patient states he was not taking Plavix at home because it caused him dysuria when he was started and he decided to stop it. C/o mild occipital headache. Denies vomiting, dizziness, CP, SOB, nausea Objective - Vital Signs/Intake and Output Vital Signs (last 24 hours): Temp Pulse Resp BP Pulse Ox 98.2 F 63 15 149/76 94 L 02/21/18 08:00 02/21/18 09:26 02/21/18 09:26 02/21/18 09:26 02/21/18 09:26 Intake and Output: 02/21/18 02/21/18 06:59 18:59 Intake Total 640 120 Output Total 725 Balance -85 120 - Medications Medications: Current Medications Acetaminophen (Tylenol 650 Mg Supp) 650 mg AK ONCE PRN PRN Reason: Headache Last Admin: 02/20/18 19:38 Dose: 650 mg Atorvastatin Calcium (Lipitor) 40 mg PO DAILY [facility] Last Admin: 02/21/18 09:16 Dose: 40 mg Sodium Chloride (Sodium Chloride 0.9%) 1,000 mls @ 100 mls/hr IV .Q10H [facility] Last Admin: 02/20/18 13:00 Dose: 100 mls/hr Sodium Chloride (Sodium Chloride 0.9%) 1,000 mls @ 100 mls/hr IV .Q10H [facility] Stop: 02/21/18 11:46 Potassium Chloride/Dextrose/Sod Cl (Potassium Chl 20 Meq In D5-1/2ns) 1,000 mls @ 60 mls/hr IV .[id number] [facility] Stop: 02/21/18 18:23 Last Admin: 02/20/18 20:57 Dose: 60 mls/hr Insulin Human Lispro (Humalog) 0 units SC ACCU-CHECK [facility]; Protocol Last Admin: 02/21/18 06:35 Dose: Not Given - Labs Labs: 02/21/18 05:30 02/21/18 05:30 PT 12.5 Seconds (9.8-13.1) 02/20/18 08:40 INR 1.1 02/20/18 08:40 APTT 36.3 Seconds (25.6-37.1) 02/20/18 08:40 - Constitutional Appears: Non-toxic - Eye Exam Eye Exam: EOMI, PERRL - ENT Exam ENT Exam: Mucous Membranes Moist - Respiratory Exam Respiratory Exam: Clear to Ausculation Bilateral, NORMAL BREATHING PATTERN. absent: Respiratory Distress - Cardiovascular Exam Cardiovascular Exam: +S1, +S2. absent: Gallop - GI/Abdominal Exam GI & Abdominal Exam: Soft, Normal Bowel Sounds. absent: Guarding, Tenderness, Rebound - Extremities Exam Extremities Exam: Full ROM, Normal Capillary Refill. absent: Calf Tenderness - Neurological Exam Neurological Exam: Alert, Awake, Oriented x3. absent: Motor Sensory Deficit - Psychiatric Exam Psychiatric exam: Normal Affect, Normal Mood - Skin Skin Exam: Normal Color, Warm Assessment and Plan - Assessment and Plan (Free Text) Assessment: 77 y/o M with a PMHx of HTN, DM2, CVA admitted for evaluation and management of acute CVA. CVA/TIA. Motor aphasia, facial droop -acute -Seems resolved now -Alteplase administered -Echocardiogram, US dupplex of b/l carotids and CTA of head and neck all neg for acute CVA, low EF or clots -Neurology consult, Dr Lala. -NPO, Swallow evaluation for tomorrow. Passed bedside nurse swallow eval -Neuro checks Q2H -Maintain SBP<180, Vasotec PRN if SBP>150. -serum glucose goal <180 mg/dL -IV fluids: LR at 60mL/hr. -Admit to ICU -Statins started -Initiate antiplatelet therapy 48 h after TPA DM2 -NPO, hold PO medications -Insulin sliding scale -serum glucose goal <180 mg/dL HTN -Stable. Home meds held -Maintain SBP<180, Vasotec PRN DVT Prophylaxis -SCD's for now -Hold Lovenox or anticoagulation due to thrombolytic therapy.
--- NOTE | 2018-02-21 16:42 | US ---
Date of service: 02/20/2018 PROCEDURE: Duplex ultrasound of the carotid and vertebral arteries. HISTORY: CVA COMPARISON: Comparison made with prior carotid Doppler study dated 02/09/2017. Comparison also made with CTA of the neck dated 02/20/2018. TECHNIQUE: Grayscale and duplex Doppler evaluation of the cervical carotid and vertebral arteries were performed. The common carotid, carotid bifurcations and cervical ICA and proximal ECA were evaluated. The vertebral arteries were evaluated for gross patency and direction. FINDINGS: RIGHT CAROTID ARTERIES: Common Carotid Artery: Normal. Maximal flow velocity of 89.9 cm/s. Carotid Bifurcation: Normal. Internal Carotid Artery:Normal. Maximal flow velocity of 59.6 cm/s. External Carotid Artery (proximal branches): Normal. Maximal flow velocity of 47.9 cm/s. ICA/CCA Ratio: 0.7 LEFT CAROTID ARTERIES: Common Carotid Artery: Normal. Maximal flow velocity of 63.8 cm/s. Carotid Bifurcation: Normal. Internal Carotid Artery:Normal. Maximal flow velocity of 67.9 cm/s. External Carotid Artery (proximal branches): Normal. Maximal flow velocity of 52.3 cm/s. ICA/CCA Ratio: 1.0 VERTEBRAL ARTERIES: Right Vertebral Artery: Patent. Antegrade flow. Left Vertebral Artery: Patent. Antegrade flow. OTHER FINDINGS: No atherosclerotic calcification present IMPRESSION: Normal Duplex Doppler of the cervical carotid and vertebral arteries.
[2018-02-21] MEDS ORDERED: Influenza Vaccine 60 mcg/0.5 mL SYR (4YR UP) IM ONE (18:54)
[2018-02-21] MEDS ORDERED: Pneumococcal 23-Valent Vaccine IM ONE (18:55)
[2018-02-21] MEDS ORDERED: Influenza Vaccine (5 YR UP)/PF 60 MCG/0.5 ML SYR IM ONE (19:55)
--- NOTE | 2018-02-21 21:01 | CARD ---
APPROVED REPORT Date of service: 02/20/2018 EKG Measurement Heart [id number] <Conclusion> Sinus bradycardia Left axis deviation Inferior infarct, age undetermined Abnormal ECG
[2018-02-22 04:52] LABS: HEMOGLOBIN 14.2 g/dL (12.0-18.0); MEAN CELL VOLUME 92.3 fl (80.0-94.0); MEAN CORPUSCULAR HEMOGLOBIN 31.5 pg (27.0-31.0); MEAN CORPUSCULAR HGB CONC 34.2 g/dL (33.0-37.0); RBC 4.49 Mil/uL (4.40-5.90); RED CELL DISTRIBUTION WIDTH 13.3 % (11.5-14.5); WHITE BLOOD COUNT 6.5 K/uL (4.8-10.8)
[2018-02-22 05:04] LABS: ALBUMIN 3.8 g/dL (3.5-5.0); ALT/SGPT 29 U/L (21-72); AST/SGOT 31 U/L (17-59); BLOOD UREA NITROGEN 18 mg/dl (9-20); GFR NON-AFRICAN AMERICAN > 60
[2018-02-22] MEDS: Insulin Lispro (humaLOG) 100 Units/ml Inj SC SCH ×4 (08:52→23:17)
--- NOTE | 2018-02-22 10:23 | CP.PCM.PN ---
Subjective - Date & Time of Evaluation Date of Evaluation: 02/22/18 Time of Evaluation: 10:22 - Subjective Subjective: Neurology Follow-Up Note: Mr. Barba was evaluated this morning Objective - Vital Signs/Intake and Output Vital Signs (last 24 hours): Temp Pulse Resp BP Pulse Ox 95.4 F L 59 L 20 134/65 94 L 02/22/18 08:00 02/22/18 09:28 02/22/18 09:00 02/22/18 09:28 02/22/18 09:00 Intake and Output: 02/22/18 02/22/18 06:59 18:59 Intake Total 10 120 Output Total 500 200 Balance -490 -80 - Medications Medications: Current Medications Acetaminophen (Tylenol 325mg Tab) 650 mg PO Q6 PRN PRN Reason: Pain, Mild (1-3) Last Admin: 02/21/18 20:16 Dose: 650 mg Amlodipine Besylate (Norvasc) 5 mg PO DAILY [facility] Last Admin: 02/22/18 09:28 Dose: 5 mg Aspirin (Ecotrin) 81 mg PO DAILY [facility] Last Admin: 02/22/18 08:53 Dose: 81 mg Atorvastatin Calcium (Lipitor) 40 mg PO DAILY [facility] Last Admin: 02/22/18 08:53 Dose: 40 mg Glipizide (Glucotrol) 5 mg PO ACL [facility] Sodium Chloride (Sodium Chloride 0.9%) 1,000 mls @ 100 mls/hr IV .Q10H [facility] Last Admin: 02/20/18 13:00 Dose: 100 mls/hr Insulin Human Lispro (Humalog) 0 units SC ACCU-CHECK [facility]; Protocol Last Admin: 02/22/18 08:52 Dose: Not Given - Labs Labs: 02/22/18 04:41 02/22/18 04:41 PT 12.5 Seconds (9.8-13.1) 02/20/18 08:40 INR 1.1 02/20/18 08:40 APTT 36.3 Seconds (25.6-37.1) 02/20/18 08:40 - Constitutional Appears: Well, Non-toxic, No Acute Distress - Head Exam Head Exam: ATRAUMATIC, NORMAL INSPECTION, NORMOCEPHALIC - Eye Exam Eye Exam: EOMI, Normal appearance Pupil Exam: NORMAL ACCOMODATION - ENT Exam ENT Exam: Mucous Membranes Moist - Neck Exam Neck Exam: Full ROM, Normal Inspection - Respiratory Exam Respiratory Exam: NORMAL BREATHING PATTERN - Cardiovascular Exam Cardiovascular Exam: REGULAR RHYTHM - Extremities Exam Extremities Exam: Full ROM, Normal Inspection. absent: Calf Tenderness, Pedal Edema - Back Exam Back Exam: Full ROM - Neurological Exam Neurological Exam: Alert, Awake, CN II-XII Intact, Oriented x3, Reflexes Normal Neuro motor strength exam: Left Upper Extremity: 5, Right Upper Extremity: 5, Left Lower Extremity: 5, Right Lower Extremity: 5 Additional comments: speech clear, fluid; no aphasia noted no facial asymmetry strength strong and equal sensation intact and equal fine motor intact - Psychiatric Exam Psychiatric exam: Normal Affect, Normal Mood - Skin Skin Exam: Normal Color Assessment and Plan (1) Ischemic stroke Assessment & Plan: Imaging reviewed: -MRI Brain (02/22/18): There are several tiny acute cortical infarct changes seen in the left posterior frontoparietal and left posterior temporoparietal watershed zones. Chronic ischemic changes seen within the periventricular/deep white matter with the numerous chronic appearing lacunar type infarcts scattered about the deep and subcortical white matter, both basal nuclei both cerebellar hemispheres left greater than right and possibly right cerebral peduncle. No e vidence of acute intracranial hemorrhage. Moderate generalized volume loss. -CTA head and neck: Minor soft and calcified plaque changes left carotid bifurcation with the mid minimal calcified plaque changes both carotid siphons and proximal intradural portion of the right vertebral artery. No evidence of dissection occlusion nor significant stenosis. No evidence of large aneurysm nor vascular malformation. Elliptical shaped low-attenuation lesion left lobe thyroid gland for which follow-up ultrasound of the thyroid gland recommended. -CT Head (02/21/18): No acute intracranial hemorrhage. Mild chronic periventricular white matter ischemic changes. Multiple smaller of chronic lacunar-type infarcts scattered about the deep and subcortical white matter as well as right lateral basal ganglia and left cerebellar hemisphere less well seen on this study as detailed above. Note that the possibility of a small hyperacute infarct cannot be excluded based on this study. Moderate generalized volume loss. -CT Head (02/20/18): No acute intracranial hemorrhage. Mild chronic white matter ischemic changes with a few scattered chronic right basal nuclei less well seen on this study as compared to high-resolution MRI. Moderate generalized volume loss. -ECHO (02/20/18): No LV thrombus; EF 60-65%. -Continue PT/OT/ST -Continue DVT ppx -Continue ASA, Statin -Notify neuro team of any acute changes. Case discussed with Dr. Lala Status: Acute
--- NOTE | 2018-02-22 11:33 | MRI ---
Date of service: 02/22/2018 PROCEDURE: MRI BRAIN WITHOUT CONTRAST HISTORY: s/p TPA COMPARISON: Comparison made with prior CT scan and CTA brain dated 02/20/2018. TECHNIQUE: Multiplanar, multisequence MR images of the brain were obtained without intravenous contrast enhancement. FINDINGS: HEMORRHAGE: No acute parenchymal, subarachnoid or extra-axial hemorrhage. No evidence of hemosiderin deposition is identified on gradient echo weighted sequence. DWI: There are a few tiny focal cortical based acute infarct changes seen in the left posterior frontoparietal and posterior temporoparietal watershed zones. BRAIN PARENCHYMA: Mild diffuse/confluent chronic periventricular white matter ischemic changes seen extending peripherally into the deep and subcortical white matter both cerebral hemispheres. Additionally, there are numerous chronic appearing lacunar type infarcts scattered about the deep and subcortical white matter as well as both basal nuclei, both cerebellar hemispheres left greater than right and possibly within the right cerebral peduncle. Moderate generalized volume loss. No obvious parenchymal nor extra-axial masses or collections identified on this noncontrast exam. Minimally low-lying cerebellar tonsils. VENTRICLES: No obstructive hydrocephalus. CRANIUM: Calvarium grossly unremarkable. ORBITS: Again noted are changes of bilateral cataract surgery. PARANASAL SINUSES/MASTOIDS: Clear VASCULAR SYSTEM: Visualized major vascular flow voids at skull base patent. OTHER FINDINGS: None. IMPRESSION: There are several tiny acute cortical infarct changes seen in the left posterior frontoparietal and left posterior temporoparietal watershed zones. Chronic ischemic changes seen within the periventricular/deep white matter with the numerous chronic appearing lacunar type infarcts scattered about the deep and subcortical white matter, both basal nuclei both cerebellar hemispheres left greater than right and possibly right cerebral peduncle. No evidence of acute intracranial hemorrhage.. Moderate generalized volume loss. Note these findings were discussed with ICU auto body builder apprentice Dr. Arellano at approximately 11:25 a.m. with written down and read back verification
[2018-02-22] MEDS: guaiFENesin 600 mg ER Tab PO SCH ×2 (13:00→21:51)
[2018-02-22] MEDS: Amoxicillin-Clav 875-125 mg Tab PO SCH ×2 (13:01→21:51)
--- NOTE | 2018-02-22 15:23 | CP.PCM.PN ---
<Cecilio Bauer - Last Filed: 02/22/18 15:20> Subjective - Date & Time of Evaluation Date of Evaluation: 02/22/18 Time of Evaluation: 10:10 - Subjective Subjective: 77 y/o M was seen and examined by bedside. Pt is fully verbal in mexican, reports feeling OK but complains of sore throat, runny nose, nasal congestion and head pressure michelle 15 days. No ill contacts, no recent travel. Pt denies chest pain, weakness, paresthesias, bad taste, visual disturbances, hearing disturbances, nausea, vomiting. Pt afebrile, tolerating PO with No acute events overnight. Objective - Vital Signs/Intake and Output Vital Signs (last 24 hours): Temp Pulse Resp BP Pulse Ox 98.3 F 69 10 L 147/85 97 02/22/18 12:22 02/22/18 12:22 02/22/18 12:22 02/22/18 12:22 02/22/18 12:22 Intake and Output: 02/22/18 02/22/18 06:59 18:59 Intake Total 10 120 Output Total 500 200 Balance -490 -80 - Medications Medications: Current Medications Acetaminophen (Tylenol 325mg Tab) 650 mg PO Q6 PRN PRN Reason: Pain, Mild (1-3) Last Admin: 02/21/18 20:16 Dose: 650 mg Amlodipine Besylate (Norvasc) 5 mg PO DAILY [facility] Last Admin: 02/22/18 09:28 Dose: 5 mg Amoxicillin/Clavulanate Potassium (Augmentin 875 Mg-125 Mg Tab) 1 tab PO Q12 [facility]; Protocol Last Admin: 02/22/18 13:01 Dose: 1 tab Aspirin (Ecotrin) 81 mg PO DAILY [facility] Last Admin: 02/22/18 08:53 Dose: 81 mg Atorvastatin Calcium (Lipitor) 10 mg PO DAILY [facility] Clopidogrel Bisulfate (Plavix) 75 mg PO DAILY [facility] Glipizide (Glucotrol) 5 mg PO ACL [facility] Last Admin: 02/22/18 13:01 Dose: 5 mg Guaifenesin (Mucinex La) 600 mg PO Q12 [facility] Last Admin: 02/22/18 13:00 Dose: 600 mg Sodium Chloride (Sodium Chloride 0.9%) 1,000 mls @ 100 mls/hr IV .Q10H [facility] Last Admin: 02/20/18 13:00 Dose: 100 mls/hr Insulin Human Lispro (Humalog) 0 units SC ACCU-CHECK [facility]; Protocol Last Admin: 02/22/18 13:01 Dose: Not Given - Labs Labs: 02/22/18 04:41 02/22/18 04:41 PT 12.5 Seconds (9.8-13.1) 02/20/18 08:40 INR 1.1 02/20/18 08:40 APTT 36.3 Seconds (25.6-37.1) 02/20/18 08:40 - Constitutional Appears: Well, No Acute Distress - Head Exam Head Exam: ATRAUMATIC, NORMAL INSPECTION - Eye Exam Eye Exam: EOMI, Normal appearance, PERRL - ENT Exam ENT Exam: Mucous Membranes Moist Additional comments: erythema on posterior oropharynx, post-nasal drip, nasal congestion. Frontal and maxillary sinuses tender to palpation. - Neck Exam Neck Exam: Full ROM, Normal Inspection. absent: Lymphadenopathy - Respiratory Exam Respiratory Exam: NORMAL BREATHING PATTERN. absent: Rhonchi, Wheezes, Respiratory Distress - Cardiovascular Exam Cardiovascular Exam: +S1, +S2 - GI/Abdominal Exam GI & Abdominal Exam: Soft. absent: Distended, Firm, Guarding, Rigid, Tenderness - Extremities Exam Extremities Exam: Full ROM, Normal Inspection. absent: Calf Tenderness, Pedal Edema, Tenderness - Back Exam Back Exam: absent: CVA tenderness (L), CVA tenderness (R) - Neurological Exam Neurological Exam: Alert, Awake, Oriented x3 Neuro motor strength exam: Left Upper Extremity: 5, Right Upper Extremity: 5, Left Lower Extremity: 5, Right Lower Extremity: 5 Assessment and Plan - Assessment and Plan (Free Text) Assessment: 77 y/o M with a PMHx of HTN, DM2, CVA 7 years ago and TIA 1 month ago, was brought by daughter and to ED due to aphasia, admitted for evaluation and management of possible acute CVA. ----Echocardiogram, US dupplex of b/l carotids and CTA of head and neck were unremarkable --Head CT: no intracranial hemorrhage, mild chronic white matter ischemic changes, scattered chrnic R basal nuclei, mod volume loss. --MRI Brain: several tiny cortical infarct changes in L post fronto-parietal and L post temporoparietal watershed areas. PLAN: >Acute inschemic CVA/TIA/Motor aphasia --Stable, tolerating PO. No neuro deficit noted today. --No hemorrhage on Head CT. --Alteplase administered --MRI Brain: several tiny cortical infarct changes in L post fronto-parietal and L post temporoparietal watershed areas. --Neurology on board, Dr Lala. --Maintain SBP<180, Vasotec PRN if SBP>150. --serum glucose goal <180 mg/dL --Aspirin and Plavix initiated. --Lipitor dosage decreased to 10mg since total billirubin jumped to 4.0 >Acute sinusitis, likely bacterial --Augmentin BID, PO started today --Mucinex BID >DM2 --Home meds resumed, Glipizide. --Insulin sliding scale --serum glucose goal <180 mg/dL >HTN --Home meds resumed, Norvasc. --Maintain SBP<180, Vasotec PRN if SBP>150. >DVT Prophylaxis --SCD's for now --Hold Lovenox or anticoagulation due to thrombolytic therapy. <Consuelo Garcia - Last Filed: 02/22/18 15:45> Objective - Vital Signs/Intake and Output Vital Signs (last 24 hours): Temp Pulse Resp BP Pulse Ox 98.3 F 69 10 L 147/85 97 02/22/18 12:22 02/22/18 12:22 02/22/18 12:22 02/22/18 12:22 02/22/18 12:22 Intake and Output: 02/22/18 02/22/18 06:59 18:59 Intake Total 10 120 Output Total 500 200 Balance -490 -80 - Medications Medications: Current Medications Acetaminophen (Tylenol 325mg Tab) 650 mg PO Q6 PRN PRN Reason: Pain, Mild (1-3) Last Admin: 02/21/18 20:16 Dose: 650 mg Amlodipine Besylate (Norvasc) 5 mg PO DAILY [facility] Last Admin: 02/22/18 09:28 Dose: 5 mg Amoxicillin/Clavulanate Potassium (Augmentin 875 Mg-125 Mg Tab) 1 tab PO Q12 [facility]; Protocol Last Admin: 02/22/18 13:01 Dose: 1 tab Aspirin (Ecotrin) 81 mg PO DAILY [facility] Last Admin: 02/22/18 08:53 Dose: 81 mg Atorvastatin Calcium (Lipitor) 10 mg PO DAILY [facility] Clopidogrel Bisulfate (Plavix) 75 mg PO DAILY [facility] Glipizide (Glucotrol) 5 mg PO ACL [facility] Last Admin: 02/22/18 13:01 Dose: 5 mg Guaifenesin (Mucinex La) 600 mg PO Q12 [facility] Last Admin: 02/22/18 13:00 Dose: 600 mg Sodium Chloride (Sodium Chloride 0.9%) 1,000 mls @ 100 mls/hr IV .Q10H [facility] Last Admin: 02/20/18 13:00 Dose: 100 mls/hr Insulin Human Lispro (Humalog) 0 units SC ACCU-CHECK [facility]; Protocol Last Admin: 02/22/18 13:01 Dose: Not Given - Labs Labs: 02/22/18 04:41 02/22/18 04:41 PT 12.5 Seconds (9.8-13.1) 02/20/18 08:40 INR 1.1 02/20/18 08:40 APTT 36.3 Seconds (25.6-37.1) 02/20/18 08:40 Attending/Attestation - Attestation I have personally seen and examined this patient.: Yes I have fully participated in the care of the patient.: Yes I have reviewed all pertinent clinical information, including history, physical exam and plan: Yes
[2018-02-23 05:10] VITALS: PULSE 53
[2018-02-23 05:11] LABS: HEMOGLOBIN 13.6 g/dL (12.0-18.0); MEAN CELL VOLUME 92.5 fl (80.0-94.0); MEAN CORPUSCULAR HEMOGLOBIN 30.9 pg (27.0-31.0); MEAN CORPUSCULAR HGB CONC 33.4 g/dL (33.0-37.0); RBC 4.4 Mil/uL (4.40-5.90); RED CELL DISTRIBUTION WIDTH 13.2 % (11.5-14.5); WHITE BLOOD COUNT 6.4 K/uL (4.8-10.8)
[2018-02-23 05:45] LABS: ALB/GLOB RATIO 1.1 (1.0-2.1); ALBUMIN 3.6 g/dL (3.5-5.0); ALT/SGPT 35 U/L (21-72); AST/SGOT 38 U/L (17-59); BILIRUBIN,DIRECT 0.1 mg/ml (0.0-0.4); BLOOD UREA NITROGEN 25 mg/dl (9-20); CALCIUM 8.6 mg/dL (8.4-10.2); GFR NON-AFRICAN AMERICAN > 60
[2018-02-23] MEDS: Insulin Lispro (humaLOG) 100 Units/ml Inj SC SCH ×2 (06:58→11:22)
[2018-02-23] MEDS ORDERED: Potassium Chloride 20 mEq ER Tab PO ONE (07:31)
[2018-02-23 07:53] VITALS: BP 110/56; RESP 18; TEMP 98.8; O2SAT 95
[2018-02-23] MEDS: Amoxicillin-Clav 875-125 mg Tab PO SCH (09:49)
[2018-02-23] MEDS: guaiFENesin 600 mg ER Tab PO SCH (09:49)
--- NOTE | 2018-02-23 10:52 | CP.PCM.DIS ---
<Diamante Montaño - Last Filed: 02/23/18 15:01> Provider - Provider Date of Admission: 02/20/18 09:55 Attending physician: Liam Diallo MD Primary care physician: private Consults: 02/20/18 08:37 Stroke Team Consult Stat Comment: Aphasia Consulting Provider: Neurohospitalist Consulting Physician: NEUROHOSP Neurohospitalist for Consult: Daren Ellis Neurohospitalist for Consult: Selvin Lala Reason for Consult: Aphasia 02/20/18 10:30 Neurology Consult Stat Comment: Consulting Provider: Selvin Lala Consulting Physician: Selvin Lala Reason for Consult: acute CVA Time Spent in preparation of Discharge (in minutes): 30 Diagnosis - Discharge Diagnosis (1) CVA (cerebral vascular accident) Status: Acute Hospital Course - Lab Results Lab Results: Micro Results 02/20/18 14:30 Naris MRSA Culture (Admit) - Final MRSA NOT DETECTED Most Recent Lab Values WBC 6.4 K/uL (4.8-10.8) 02/23/18 04:20 RBC 4.40 Mil/uL (4.40-5.90) 02/23/18 04:20 Hgb 13.6 g/dL (12.0-18.0) 02/23/18 04:20 Hct 40.7 % (35.0-51.0) 02/23/18 04:20 MCV 92.5 fl (80.0-94.0) 02/23/18 04:20 MCH 30.9 pg (27.0-31.0) 02/23/18 04:20 MCHC 33.4 g/dL (33.0-37.0) 02/23/18 04:20 RDW 13.2 % (11.5-14.5) 02/23/18 04:20 Plt Count 433 K/uL (130-400) H 02/23/18 04:20 MPV 7.8 fl (7.2-11.7) 02/21/18 05:30 Neut % (Auto) 71.4 % (50.0-75.0) 02/21/18 05:30 Lymph % (Auto) 17.5 % (20.0-40.0) L 02/21/18 05:30 [place] % (Auto) 9.0 % (0.0-10.0) 02/21/18 05:30 Eos % (Auto) 1.4 % (0.0-4.0) 02/21/18 05:30 Baso % (Auto) 0.7 % (0.0-2.0) 02/21/18 05:30 Neut # (Auto) 4.7 K/uL (1.8-7.0) 02/21/18 05:30 Lymph # (Auto) 1.1 K/uL (1.0-4.3) 02/21/18 05:30 [place] # (Auto) 0.6 K/uL (0.0-0.8) 02/21/18 05:30 Eos # (Auto) 0.1 K/uL (0.0-0.7) 02/21/18 05:30 Baso # (Auto) 0.0 K/uL (0.0-0.2) 02/21/18 05:30 PT 12.5 Seconds (9.8-13.1) 02/20/18 08:40 INR 1.1 02/20/18 08:40 APTT 36.3 Seconds (25.6-37.1) 02/20/18 08:40 Sodium 137 mmol/l (132-148) 02/23/18 04:20 Potassium 3.4 MMOL/L (3.6-5.0) L 02/23/18 04:20 Chloride 105 mmol/L (98-107) 02/23/18 04:20 Carbon Dioxide 25 mmol/L (22-30) 02/23/18 04:20 Anion Gap 10 (10-20) 02/23/18 04:20 BUN 25 mg/dl (9-20) H 02/23/18 04:20 Creatinine 0.8 mg/dl (0.8-1.5) 02/23/18 04:20 Est GFR ( Amer) > 60 02/23/18 04:20 Est GFR (Non-Af Amer) > 60 02/23/18 04:20 POC Glucose (mg/dL) 118 mg/dL (65-110) H 02/23/18 04:49 Random Glucose 112 mg/dL (75-110) H 02/23/18 04:20 Hemoglobin A1c 5.8 % (4.2-6.5) 02/20/18 10:20 Calcium 8.6 mg/dL (8.4-10.2) 02/23/18 04:20 Magnesium 1.9 MG/DL (1.6-2.3) 02/22/18 04:41 Total Bilirubin 3.7 mg/dl (0.2-1.3) H 02/23/18 04:20 Direct Bilirubin 0.1 mg/ml (0.0-0.4) 02/23/18 04:20 AST 38 U/L (17-59) 02/23/18 04:20 ALT 35 U/L (21-72) 02/23/18 04:20 Alkaline Phosphatase 133 U/L (38-126) H 02/23/18 04:20 Troponin I < 0.0120 ng/mL (0.00-0.120) 02/20/18 08:40 Total Protein 7.0 G/DL (6.3-8.2) 02/23/18 04:20 Albumin 3.6 g/dL (3.5-5.0) 02/23/18 04:20 Globulin 3.4 gm/dL (2.2-3.9) 02/23/18 04:20 Albumin/Globulin Ratio 1.1 (1.0-2.1) 02/23/18 04:20 Triglycerides 102 mg/DL (0-149) 02/21/18 05:30 Cholesterol 151 mg/dL (0-199) 02/21/18 05:30 LDL Cholesterol Direct 90 mg/dL (0-129) 02/21/18 05:30 HDL Cholesterol 47 MG/DL (30-70) 02/21/18 05:30 TSH 3rd Generation 1.71 mIU/ML (0.46-4.68) 02/22/18 04:41 Urine Color Straw (YELLOW) 02/20/18 14:30 Urine Clarity Clear (Clear) 02/20/18 14:30 Urine pH 7.0 (5.0-8.0) 02/20/18 14:30 Ur Specific [place] 1.009 (1.003-1.030) 02/20/18 14:30 Urine Protein Negative mg/dL (NEGATIVE) 02/20/18 14:30 Urine Glucose (UA) Neg mg/dL (NEGATIVE) 02/20/18 14:30 Urine Ketones Negative mg/dL (NEGATIVE) 02/20/18 14:30 Urine Blood Negative (NEGATIVE) 02/20/18 14:30 Urine Nitrate Negative (NEGATIVE) 02/20/18 14:30 Urine Bilirubin Negative (NEGATIVE) 02/20/18 14:30 Urine Urobilinogen 0.2-1.0 mg/dL (0.2-1.0) 02/20/18 14:30 Ur Leukocyte Esterase Neg [place]/uL (Negative) 02/20/18 14:30 Urine RBC (Auto) < 1 /hpf (0-3) 02/20/18 14:30 Urine Microscopic WBC < 1 /hpf (0-5) 02/20/18 14:30 Ur Squamous Epith Cells < 1 /hpf (0-5) 02/20/18 14:30 Blood Type O POSITIVE 02/20/18 08:40 Blood Type Confirm O POSITIVE 02/20/18 18:30 Antibody Screen Negative 02/20/18 08:40 BBK History Checked No verified bt 02/20/18 08:40 - Hospital Course Hospital Course: 77 yo M with a PMHx of HTN, DM2, CVA 7 years ago and TIA 1 year ago, was admitted due to acute ischemic CVA. He was brought by daughter and to ED due to aphasia; was out walking outside and suddenly lost ability to speak coherently. As per history from family, no acute events prior to change in speech, and they denied pt complaining of recent trauma, headache, dizziness, chest pain, SOB or weakness. CT head: No acute intracranial hemorrhage. Mild chronic white matter ischemic changes with a few scattered chronic right basal nuclei less well seen on this study as compared to high-resolution MRI. Neurology was consulted in ED - no contraindication to giving TPA; risks and benefits of TPA were explained as per ED note, family agreed. TPA administered around in the morning of day of admission, in ED; admitted to ICU. By 2 pm on neuro consultation pt was able to repeat after neurologist and state his name. Echo showed no LV thrombus; EF 60-65%. He passed swallow eval - started on heart healthy diet, tolerated well. He was able to walk without difficulty and regained ability to speak. After repeat head CT, brain MRI, CTA head and neck, he was cleared by neurology service for discharge with statin, aspirin and plavix. During admission he was also found to have bacterial sinusitis - started on augmentin BID on 02/22. Received dose this am. Of note, total bili to be elevated to 4, reviewed previous labs - this has been elevated since 2017 and has been up to about 9. F/u outpatient. Thyroid u/s -f/u outpatient for attenuation seen on CTA head/neck. Pt seen/eval this am with Dr. Garcia; no acute events overnight. Able to ambulate without difficulty, able to speak clearly and purposefully, answer questions and offer his thoughts. Stable for d/c today with resuming home meds for HTN and DM, as well as new prescriptions for lipitor, aspirin and plavix. Discussed w/ patient and his son/daughter at bedside/on the phone that these medications are meant to prevent and lower risk of getting another ischemic stroke. Also provided w/ script to finish augmentin total 7 day course for sinusitis. May resume home meds . Pt stated he had a PMD who so he has not been to a doctor in some months - advised that he is encouraged to follow up at [facility] within 1 week for follow up, and encouraged to especially follow up with neurologist Dr. Lala. Contact info provided w/ discharge documents. Pt's family and pt verbalized understanding and agreement with plan. Discharge Exam - Head Exam Head Exam: ATRAUMATIC, NORMAL INSPECTION - Eye Exam Eye Exam: Normal appearance - ENT Exam ENT Exam: Mucous Membranes Moist - Neck Exam Neck exam: Full Rom - Respiratory Exam Respiratory Exam: Clear to PA & Lateral, NORMAL BREATHING PATTERN, UNREMARKABLE - Cardiovascular Exam Cardiovascular Exam: REGULAR RHYTHM, +S1, +S2 - GI/Abdominal Exam GI & Abdominal Exam: Normal Bowel Sounds, Soft. absent: Tenderness - Extremities Exam Extremities exam: normal inspection - Neurological Exam Neurological exam: Alert, Normal Gait, Oriented x3 Additional comments: speech clear, purposeful; no aphasia noted; no facial asymmetry strength strong and equal in all 4 extremities no sensory deficits - Psychiatric Exam Psychiatric exam: Normal Mood - Skin Skin Exam: Warm Discharge Plan - Discharge Medications Prescriptions: Amoxicillin/Clavulanate [Augmentin 875 MG-125 MG Tab] 1 tab PO Q12 #11 tab Aspirin [Ecotrin] 81 mg PO DAILY #30 tabec Atorvastatin [Lipitor] 10 mg PO HS #30 tab Clopidogrel [Plavix] 75 mg PO DAILY #30 tab - Follow Up Plan Condition: GUARDED Disposition: HOME/ ROUTINE Instructions: Stroke (DC) Additional Instructions: Please fill prescriptions for the following new medications: Plavix 75 mg - one pill daily. Aspirin 81 mg - one pill daily. Lipitor 10 mg - one pill daily. Augmentin (antibioti): continue for total course of 7 days (received 1 day in hospital and one dose this morning). Take 1 tablet tonight around 9 pm. Take one tablet every 12 hours for the next 5 days starting tomorrow morning (last day of antibiotics should be Feb 28). You can take over the counter mucinex for cough symptoms. You may resume home meds: amlodpine (norvasc), metormin, glucotrol (glipizide). Please follow up with Neurologist Dr. Lala. Please call for appointment. Please follow up with primary care physician of your choice. You can make an appointment with the [facility] at [address] [place] [address] by calling [phone]. Please return to ED if you have dizziness, weakness, loss of vision, inability to speak, recurrence of symptoms, or other acute change in condition. Referrals: [facility] [Provider Group] Selvin Lala MD [Medical Doctor] - Clinical Quality Measures - CQM - Stroke Antithrombotic Prescribed: Yes Anticoagulation Prescribed for Atrial Flutter, Atrial Fibrillation and History of:: Not Applicable Statin prescribed: Yes <Consuelo Garcia - Last Filed: 02/23/18 16:03> Provider - Provider Date of Admission: 02/20/18 09:55 Attending physician: Liam Diallo MD Consults: 02/20/18 08:37 Stroke Team Consult Stat Comment: Aphasia Consulting Provider: Neurohospitalist Consulting Physician: NEUROHOSP Neurohospitalist for Consult: Daren Ellis Neurohospitalist for Consult: Selvin Lala Reason for Consult: Aphasia 02/20/18 10:30 Neurology Consult Stat Comment: Consulting Provider: Selvin Lala Consulting Physician: Selvin Lala Reason for Consult: acute CVA Hospital Course - Lab Results Lab Results: Micro Results 02/20/18 14:30 Naris MRSA Culture (Admit) - Final MRSA NOT DETECTED Most Recent Lab Values WBC 6.4 K/uL (4.8-10.8) 02/23/18 04:20 RBC 4.40 Mil/uL (4.40-5.90) 02/23/18 04:20 Hgb 13.6 g/dL (12.0-18.0) 02/23/18 04:20 Hct 40.7 % (35.0-51.0) 02/23/18 04:20 MCV 92.5 fl (80.0-94.0) 02/23/18 04:20 MCH 30.9 pg (27.0-31.0) 02/23/18 04:20 MCHC 33.4 g/dL (33.0-37.0) 02/23/18 04:20 RDW 13.2 % (11.5-14.5) 02/23/18 04:20 Plt Count 433 K/uL (130-400) H 02/23/18 04:20 MPV 7.8 fl (7.2-11.7) 02/21/18 05:30 Neut % (Auto) 71.4 % (50.0-75.0) 02/21/18 05:30 Lymph % (Auto) 17.5 % (20.0-40.0) L 02/21/18 05:30 [place] % (Auto) 9.0 % (0.0-10.0) 02/21/18 05:30 Eos % (Auto) 1.4 % (0.0-4.0) 02/21/18 05:30 Baso % (Auto) 0.7 % (0.0-2.0) 02/21/18 05:30 Neut # (Auto) 4.7 K/uL (1.8-7.0) 02/21/18 05:30 Lymph # (Auto) 1.1 K/uL (1.0-4.3) 02/21/18 05:30 [place] # (Auto) 0.6 K/uL (0.0-0.8) 02/21/18 05:30 Eos # (Auto) 0.1 K/uL (0.0-0.7) 02/21/18 05:30 Baso # (Auto) 0.0 K/uL (0.0-0.2) 02/21/18 05:30 PT 12.5 Seconds (9.8-13.1) 02/20/18 08:40 INR 1.1 02/20/18 08:40 APTT 36.3 Seconds (25.6-37.1) 02/20/18 08:40 Sodium 137 mmol/l (132-148) 02/23/18 04:20 Potassium 3.4 MMOL/L (3.6-5.0) L 02/23/18 04:20 Chloride 105 mmol/L (98-107) 02/23/18 04:20 Carbon Dioxide 25 mmol/L (22-30) 02/23/18 04:20 Anion Gap 10 (10-20) 02/23/18 04:20 BUN 25 mg/dl (9-20) H 02/23/18 04:20 Creatinine 0.8 mg/dl (0.8-1.5) 02/23/18 04:20 Est GFR ( Amer) > 60 02/23/18 04:20 Est GFR (Non-Af Amer) > 60 02/23/18 04:20 POC Glucose (mg/dL) 305 mg/dL (65-110) H 02/23/18 10:50 Random Glucose 112 mg/dL (75-110) H 02/23/18 04:20 Hemoglobin A1c 5.8 % (4.2-6.5) 02/20/18 10:20 Calcium 8.6 mg/dL (8.4-10.2) 02/23/18 04:20 Magnesium 1.9 MG/DL (1.6-2.3) 02/22/18 04:41 Total Bilirubin 3.7 mg/dl (0.2-1.3) H 02/23/18 04:20 Direct Bilirubin 0.1 mg/ml (0.0-0.4) 02/23/18 04:20 AST 38 U/L (17-59) 02/23/18 04:20 ALT 35 U/L (21-72) 02/23/18 04:20 Alkaline Phosphatase 133 U/L (38-126) H 02/23/18 04:20 Troponin I < 0.0120 ng/mL (0.00-0.120) 02/20/18 08:40 Total Protein 7.0 G/DL (6.3-8.2) 02/23/18 04:20 Albumin 3.6 g/dL (3.5-5.0) 02/23/18 04:20 Globulin 3.4 gm/dL (2.2-3.9) 02/23/18 04:20 Albumin/Globulin Ratio 1.1 (1.0-2.1) 02/23/18 04:20 Triglycerides 102 mg/DL (0-149) 02/21/18 05:30 Cholesterol 151 mg/dL (0-199) 02/21/18 05:30 LDL Cholesterol Direct 90 mg/dL (0-129) 02/21/18 05:30 HDL Cholesterol 47 MG/DL (30-70) 02/21/18 05:30 TSH 3rd Generation 1.71 mIU/ML (0.46-4.68) 02/22/18 04:41 Urine Color Straw (YELLOW) 02/20/18 14:30 Urine Clarity Clear (Clear) 02/20/18 14:30 Urine pH 7.0 (5.0-8.0) 02/20/18 14:30 Ur Specific [place] 1.009 (1.003-1.030) 02/20/18 14:30 Urine Protein Negative mg/dL (NEGATIVE) 02/20/18 14:30 Urine Glucose (UA) Neg mg/dL (NEGATIVE) 02/20/18 14:30 Urine Ketones Negative mg/dL (NEGATIVE) 02/20/18 14:30 Urine Blood Negative (NEGATIVE) 02/20/18 14:30 Urine Nitrate Negative (NEGATIVE) 02/20/18 14:30 Urine Bilirubin Negative (NEGATIVE) 02/20/18 14:30 Urine Urobilinogen 0.2-1.0 mg/dL (0.2-1.0) 02/20/18 14:30 Ur Leukocyte Esterase Neg [place]/uL (Negative) 02/20/18 14:30 Urine RBC (Auto) < 1 /hpf (0-3) 02/20/18 14:30 Urine Microscopic WBC < 1 /hpf (0-5) 02/20/18 14:30 Ur Squamous Epith Cells < 1 /hpf (0-5) 02/20/18 14:30 Blood Type O POSITIVE 02/20/18 08:40 Blood Type Confirm O POSITIVE 02/20/18 18:30 Antibody Screen Negative 02/20/18 08:40 BBK History Checked No verified bt 02/20/18 08:40 Attending/Attestation - Attestation I have personally seen and examined this patient.: Yes I have fully participated in the care of the patient.: Yes I have reviewed all pertinent clinical information, including history, physical exam and plan: Yes Notes (Text): Acute CVA s/p TPA -cont ASA, add Plavix as per Neuro rec, cont satin HTN cont Norvasc DM type II cont Glipizide and Metformin Hyperbilirubinemia, chronic further work up as utpt, trended down from previous levels URTI cont PO Augmentin
== END 2018-02-23 11:50 | disposition home or self-care (01) | DRG 45 ==
LOC: H.ER 08:19 → H.ERHOLD 09:55 → H.ICU/CCU 10:58 → H.TEL 02-22 18:52
DX: I63.9 Cerebral infarction, unspecified (principal); R00.1 Bradycardia, unspecified; B96.89 Other specified bacterial agents as the cause of diseases classified elsewhere; R17 Unspecified jaundice; E11.9 Type 2 diabetes mellitus without complications; I10 Essential (primary) hypertension; D47.3 Essential (hemorrhagic) thrombocythemia; R47.01 Aphasia; E87.6 Hypokalemia; N40.0 Benign prostatic hyperplasia without lower urinary tract symptoms; E78.00 Pure hypercholesterolemia, unspecified; Z86.73 Personal history of transient ischemic attack (TIA), and cerebral infarction without residual deficits; Z79.84 Long term (current) use of oral hypoglycemic drugs; Z87.891 Personal history of nicotine dependence; Z23 Encounter for immunization; R29.706 NIHSS score 6; R29.810 Facial weakness; G83.21 Monoplegia of upper limb affecting right dominant side; R40.2362 Coma scale, best motor response, obeys commands, at arrival to emergency department; R40.2142 Coma scale, eyes open, spontaneous, at arrival to emergency department; R40.2252 Coma scale, best verbal response, oriented, at arrival to emergency department; R47.1 Dysarthria and anarthria; J01.10 Acute frontal sinusitis, unspecified; J01.00 Acute maxillary sinusitis, unspecified; J06.9 Acute upper respiratory infection, unspecified

== ENCOUNTER 2018-03-08 13:40 | Observation (INO) | payer MEDICAID, OTHER ==
[2018-03-08 13:41] VITALS: BMI 24.2
[2018-03-08] MEDS ORDERED: Sodium Chloride 0.9% 1,000 ML IV STA (14:13)
--- NOTE | 2018-03-08 14:21 | ED PDOC ---
HPI: Abdomen Time Seen by Provider: 03/08/18 14:08 Chief Complaint (Nursing): Abdominal Pain Chief Complaint (Provider): Abdominal Pain History Per: Patient History/Exam Limitations: no limitations Onset/Duration Of Symptoms: Hrs Current Symptoms Are (Timing): Still Present Location Of Pain/Discomfort: Epigastric Associated Symptoms: denies: Fever, Vomiting, Diarrhea Additional Complaint(s): 77 year old male with a past medical history of CVA who is presenting to the ED for evaluation of epigastric pain onset this morning. Patient also complains of sore throat but denies vomiting, diarrhea, fevers, cough, and chest pain. He offers no other medical complaints at this time. PMD: none provided Past Medical History Reviewed: Historical Data, Nursing Documentation, Vital Signs Vital Signs: Last Vital Signs Temp 99.1 F 03/08/18 13:55 Pulse 59 L 03/08/18 13:55 Resp 18 03/08/18 13:55 BP 131/65 03/08/18 13:55 Pulse Ox 99 03/08/18 13:55 - Medical History PMH: CVA, Diabetes, HTN, Hypercholesterolemia, TIA (Admitted last month) Denies: Alzheimer's Disease, HIV, Chronic Kidney Disease - Surgical History Surgical History: Cholecystectomy - Family History Family History: States: Unknown Family Hx - Social History Current smoker - smoking cessation education provided: No Ex-Smoker (has not smoked in the last 12 months): Yes Alcohol: None Drugs: Denies - Home Medications Home Medications: Ambulatory Orders Medication Instructions Recorded GlipiZIDE [Glucotrol] 5 mg PO ACL #30 tab 06/01/17 MetFORMIN [glucoPHAGE] 1,000 mg PO BID 30 Days #60 tab 06/01/17 amLODIPine [Norvasc] 5 mg PO DAILY 02/20/18 Amoxicillin/Clavulanate [Augmentin 1 tab PO Q12 #11 tab 02/23/18 875 MG-125 MG Tab] Aspirin [Ecotrin] 81 mg PO DAILY #30 tabec 02/23/18 Atorvastatin [Lipitor] 10 mg PO HS #30 tab 02/23/18 Clopidogrel [Plavix] 75 mg PO DAILY #30 tab 02/23/18 guaiFENesin [Mucinex LA] 600 mg PO Q12 tab 02/23/18 - Allergies Allergies/Adverse Reactions: Allergies Allergy/AdvReac Type Severity Reaction Status Date / Time No Known Allergies Allergy Verified 05/24/17 19:51 Review of Systems ROS Statement: Except As Marked, All Systems Reviewed And Found Negative Constitutional: Negative for: Fever ENT: Positive for: Throat Pain Cardiovascular: Negative for: Chest Pain Respiratory: Negative for: Cough Gastrointestinal: Positive for: Abdominal Pain. Negative for: Vomiting, Diarrhea Physical Exam - Reviewed Nursing Documentation Reviewed: Yes Vital Signs Reviewed: Yes - Physical Exam Appears: Positive for: Non-toxic, No Acute Distress Head Exam: Positive for: ATRAUMATIC, NORMAL INSPECTION, NORMOCEPHALIC Skin: Positive for: Normal Color, Warm, DRY Eye Exam: Positive for: EOMI, Normal appearance, PERRL ENT: Positive for: Normal ENT Inspection, Pharynx Is (clear) Neck: Positive for: Normal, Painless ROM Cardiovascular/Chest: Positive for: Regular Rate, Rhythm. Negative for: Murmur Respiratory: Positive for: Normal Breath Sounds. Negative for: Respiratory Distress Gastrointestinal/Abdominal: Positive for: Soft, Tenderness (minimal epigastric tenderness). Negative for: Guarding, Rebound Back: Positive for: Normal Inspection. Negative for: L CVA Tenderness, R CVA Tenderness, Vertebral Tenderness Extremity: Positive for: Normal ROM. Negative for: Deformity, Swelling Neurologic/Psych: Positive for: Alert, Oriented. Negative for: Motor/Sensory Deficits - Laboratory Results Result Diagrams: 03/08/18 14:00 03/08/18 14:00 - ECG O2 Sat by Pulse Oximetry: 99 (RA) Pulse Ox Interpretation: Normal Medical Decision Making Medical Decision Making: Time: 14:00 Assessment: consider gastritis, will also do rapid strep Plan: --EKG --CMP --CBC --IV Fluids --Rapid Strep --Pepcid 20 mg IVP 17:00 Patient will be signed out to Dr. Elizondo pending CT, reevaluation, and final disposition. Scribe Attestation: Documented by Shania Carey, acting as a scribe for Chaparro Mandujano MD. Provider Scribe Attestation: All medical record entries made by the Scribe were at my direction and personally dictated by me. I have reviewed the chart and agree that the record accurately reflects my personal performance of the history, physical exam, medical decision making, and the department course for this patient. I have also personally directed, reviewed, and agree with the discharge instructions and disposition. Disposition - Clinical Impression Clinical Impression: Abdominal pain - Patient ED Disposition Is Patient to be Admitted: Transfer of Care - Disposition Disposition: Transfer of Care Disposition Time: 16:59 Condition: FAIR Forms: [employer] ([place]ivehi) Patient Signed Over To: Raman Elizondo III
[2018-03-08 15:21] LABS: BASO % 0.1 % (0.0-2.0); EOS % 0.1 % (0.0-4.0); HEMOGLOBIN 13.1 g/dL (12.0-18.0); LYMPH # 0.4 K/uL (1.0-4.3); LYMPH % 3.1 % (20.0-40.0); MEAN CORPUSCULAR HEMOGLOBIN 31.5 pg (27.0-31.0); MEAN CORPUSCULAR HGB CONC 33.2 g/dL (33.0-37.0); MEAN PLATELET VOLUME 7.5 fl (7.2-11.7); MONO # 0.7 K/uL (0.0-0.8); MONO % 5.2 % (0.0-10.0); NEUT # 11.9 K/uL (1.8-7.0); NEUT % 91.5 % (50.0-75.0); PLATELET COUNT 512 K/uL (130-400); RBC 4.15 Mil/uL (4.40-5.90); RED CELL DISTRIBUTION WIDTH 13.9 % (11.5-14.5)
[2018-03-08 15:38] LABS: ALB/GLOB RATIO 1.1 (1.0-2.1); ALBUMIN 4.2 g/dL (3.5-5.0); ALT/SGPT 282 U/L (21-72); AST/SGOT 416 U/L (17-59); BLOOD UREA NITROGEN 20 mg/dl (9-20); GFR NON-AFRICAN AMERICAN > 60
[2018-03-08 15:43] LABS: BASOPHIL 1 % (0-2); EOSINOPHIL 1 % (0-7); LYMPHOCYTE 5 % (20-50); MONOCYTE 8 % (0-10); NEUTROPHIL 84 % (42-75); PLATELET ESTIMATE INCREASED (NORMAL); REACTIVE LYMPHOCYTES 1 % (0-0); TOTAL CELLS COUNTED 100
[2018-03-08] MEDS ORDERED: Sodium Chloride 0.9% 50 ML IV ONE (16:42)
[2018-03-08] MEDS ORDERED: Iohexol 300 100 ML IJ ONE (16:42)
--- NOTE | 2018-03-08 16:58 | ED PDOC ---
- Laboratory Results Result Diagrams: 03/08/18 14:00 03/08/18 14:00 Lab Results: Total Bilirubin 3.9 mg/dl (0.2-1.3) H 03/08/18 14:00 AST 416 U/L (17-59) H D 03/08/18 14:00 ALT 282 U/L (21-72) H D 03/08/18 14:00 Alkaline Phosphatase 389 U/L (38-126) H D 03/08/18 14:00 Total Protein 8.0 G/DL (6.3-8.2) 03/08/18 14:00 Albumin 4.2 g/dL (3.5-5.0) 03/08/18 14:00 Globulin 3.8 gm/dL (2.2-3.9) 03/08/18 14:00 Albumin/Globulin Ratio 1.1 (1.0-2.1) 03/08/18 14:00 - ECG O2 Sat by Pulse Oximetry: 99 (RA) Medical Decision Making Medical Decision Making: received on endorsement from Dr Mandujano pending CT abd pelv and US abd Accession No. : [id number] Patient Name / ID : JUDSON ANAND / [id number] Exam Date : 03/08/2018 17:18:19 ( Approved ) Study Comment : Sex / Age : M / 77Y Creator : Lynn Strauss MD Dictator : Lynn Strauss MD Railroad [employer] : [employer] Official : Lynn Strauss MD Approver2 : Report Date : 03/08/2018 18:24:30 My Comment : Date of service: 03/08/2018 PROCEDURE: CT Abdomen and Pelvis with contrast HISTORY: Abd pain COMPARISON: 11/24/2016 TECHNIQUE: CT scan of the abdomen and pelvis was performed after administration of int ravenous contrast. Oral contrast was not administered. Coronal and sagittal reformatted images were obtained. Contrast dose: Radiation dose: Total exam DLP = 496.69 mGy-cm. This CT exam was performed using one or more of the following dose reduction techniques: Automated exposure control, adjustment of the mA and/or kV according to patient size, and/or use of iterative reconstruction technique. FINDINGS: LOWER THORAX: The visualized lungs are clear. LIVER: Normal in size with homogeneous enhancement. Fatty liver. No gross lesion or ductal dilatation. GALLBLADDER AND BILE DUCTS: Surgically absent. There is mild dilatation of the common bile duct likely related to post cholecystectomy status. PANCREAS: Normal in size with homogeneous enhancement. No gross lesion or ductal d ilatation. SPLEEN: Normal in size and appearance. ADRENALS: No discrete nodule. KIDNEYS AND URETERS: Normal in size with homogeneous enhancement. No hydronephrosis. No solid mass. Small simple cyst in the lower pole of the left kidney VASCULATURE: No aortic aneurysm. There are no aortic atherosclerotic calcifications or mural plaque present. BOWEL: Evaluation of the bowel is limited in the absence of oral contrast. The small bowel loops are normal in caliber. There is fecalization of mid small bowel contents. There moderate amount of stool in the colon. Scattered colonic diverticulosis without CT evidence for acute diverticulitis. No bowel wall thickening or obstruction. APPENDIX: Normal appendix. PERITONEUM: No free fluid. No free air. LYMPH NODES: No enlarged lymph nodes. BLADDER: Grossly normal in appearance. REPRODUCTIVE: There is moderate enlargement of the prostate gland. BONES: No acute fracture. Within normal limits for the patient's age. OTHER FINDINGS: Bilateral fat containing inguinal hernias. IMPRESSION: No acute abdominal or pelvic abnormality. Constipation. Scattered colonic diverticulosis without CT evidence for acute diverticulitis. Time: 1938 US RESULTS Findings Liver Measures 13.77 cm in length. Increased echogenicity of the liver parenchyma. No mass. No intrahepatic bile duct dilatation. Gallbladder Surgically removed. Common bile duct Measures 4.66 mm. No stones. No dilatation. Pancreas Unremarkable as visualized. No mass. No ductal dilatation. Right kidney Measures 10.28 x 5.63 x 4.61 cm in length. Normal echogenicity. No calculus, mass, or hydronephrosis. Aorta No aneurysmal dilatation. IVC Unremarkable. Other Findings None. Impression 1. Fatty liver. 2. The patient is status post cholecystectomy. Electronically signed on Mar 08, 2018 7:39:41 PM EST by: Rolly Link M.D., NIDIA Certified By [facility] & [facility] Fellowship Trained MRI and CT Specialist given marked elev LFTS, observe to clinic service for GI eval and MRCP in am Disposition - Clinical Impression Clinical Impression: Abdominal pain, Elevated liver enzymes - POA Present On Arrival: None - Disposition Disposition: Transfer of Care Disposition Time: 18:58 Condition: FAIR Forms: [employer] (Nepali) Patient Signed Over To: Ian Foster Handoff Comments: pending US and poss admission for abnormal LFTs w abd pain
--- NOTE | 2018-03-08 18:28 | CT ---
Date of service: 03/08/2018 PROCEDURE: CT Abdomen and Pelvis with contrast HISTORY: Abd pain COMPARISON: 11/24/2016 TECHNIQUE: CT scan of the abdomen and pelvis was performed after administration of intravenous contrast. Oral contrast was not administered. Coronal and sagittal reformatted images were obtained. Contrast dose: Radiation dose: Total exam DLP = 496.69 mGy-cm. This CT exam was performed using one or more of the following dose reduction techniques: Automated exposure control, adjustment of the mA and/or kV according to patient size, and/or use of iterative reconstruction technique. FINDINGS: LOWER THORAX: The visualized lungs are clear. LIVER: Normal in size with homogeneous enhancement. Fatty liver. No gross lesion or ductal dilatation. GALLBLADDER AND BILE DUCTS: Surgically absent. There is mild dilatation of the common bile duct likely related to post cholecystectomy status. PANCREAS: Normal in size with homogeneous enhancement. No gross lesion or ductal dilatation. SPLEEN: Normal in size and appearance. ADRENALS: No discrete nodule. KIDNEYS AND URETERS: Normal in size with homogeneous enhancement. No hydronephrosis. No solid mass. Small simple cyst in the lower pole of the left kidney VASCULATURE: No aortic aneurysm. There are no aortic atherosclerotic calcifications or mural plaque present. BOWEL: Evaluation of the bowel is limited in the absence of oral contrast. The small bowel loops are normal in caliber. There is fecalization of mid small bowel contents. There moderate amount of stool in the colon. Scattered colonic diverticulosis without CT evidence for acute diverticulitis. No bowel wall thickening or obstruction. APPENDIX: Normal appendix. PERITONEUM: No free fluid. No free air. LYMPH NODES: No enlarged lymph nodes. BLADDER: Grossly normal in appearance. REPRODUCTIVE: There is moderate enlargement of the prostate gland. BONES: No acute fracture. Within normal limits for the patient's age. OTHER FINDINGS: Bilateral fat containing inguinal hernias. IMPRESSION: No acute abdominal or pelvic abnormality. Constipation. Scattered colonic diverticulosis without CT evidence for acute diverticulitis.
[2018-03-08] MEDS ORDERED: Piperacillin/Tazobact 3.375 GM in Sodium Chloride 0.9% 100 ML IVPB STA (20:41)
[2018-03-08] MEDS ORDERED: Piperacillin/Tazobact 3.375 gm Inj IVPB ONE (21:55)
[2018-03-08] MEDS ORDERED: Glucagon Recombinant 1 mg Inj IM PRN (22:01)
[2018-03-08] MEDS ORDERED: Dextrose 50% SYRINGE Inj (50 ml) IV PRN (22:01)
--- NOTE | 2018-03-08 22:13 | CP.PCM.HP ---
<BarbaraAndrei - Last Filed: 03/09/18 01:47> History of Present Illness - History of Present Illness History of Present Illness: 77 yo M with pmhx of HTN and DM presents with abdominal pain. Pt states epigastric pain radiating cranially. Pain rated as 5/10. occasionally associated with acid reflux. Nausea with one episode of NBNB vomiting. Denies trauma to abdomen, diarrhea, constipation, CP/SOB, fever or chills. Of note: is s/p cholecystectomy approximately 6 months ago. He also reports throat pain, dryness. worse with swallowing. Denies difficulty breathing, eating or drinking PMD: Dr. Jimenez [facility] Surg: prostate and cholecystecomy Soc: denies: smoking, alcohol, illicit drugs Lives with family Famhx: none Rx: reconciled. Medical records reviewed on [facility] NK[facility] Present on Admission - Present on Admission Any Indicators Present on Admission: Yes History of Uncontrolled Diabetes: Yes Review of Systems - Constitutional Constitutional: Headache (mild, frontal, tension) - EENT Nose/Mouth/Throat: Sore Throat - Cardiovascular Cardiovascular: absent: Chest Pain, Chest Pain at Rest - Respiratory Respiratory: absent: Cough, Dyspnea - Gastrointestinal Gastrointestinal: Abdominal Pain (epigastric). absent: Constipation, Diarrhea, Nausea, Vomiting - Integumentary Integumentary: Other (vitilligo) Past Patient History - Infectious Disease Hx of Infectious Diseases: None - Past Medical History & Family History Past Medical History?: Yes - Past Social History Alcohol: None Drugs: Denies Home Situation {Lives}: With Family - CARDIAC Hx Cardiac Disorders: Yes Hx Hypercholesterolemia: Yes Hx Hypertension: Yes - PULMONARY Hx Respiratory Disorders: No - NEUROLOGICAL Hx Alzheimer's Disease: No Hx Transient Ischemic Attacks (TIA): Yes (Admitted last month?) - HEENT Hx HEENT Problems: No - RENAL Hx Chronic Kidney Disease: No - ENDOCRINE/METABOLIC Hx Endocrine Disorders: Yes Hx Diabetes Mellitus Type 2: Yes - HEMATOLOGICAL/ONCOLOGICAL Hx Human Immunodeficiency Virus (HIV): No - INTEGUMENTARY Other/Comment: Vetiligo - MUSCULOSKELETAL/RHEUMATOLOGICAL Hx Musculoskeletal Disorders: Yes Hx Falls: Yes - GASTROINTESTINAL Hx Gastrointestinal Disorders: Yes Hx Nausea: Yes Hx Vomiting: Yes - GENITOURINARY/GYNECOLOGICAL Hx Genitourinary Disorders: Yes Hx Prostate Problems: Yes (BPH) - PSYCHIATRIC Hx Psychophysiologic Disorder: No Hx Substance Use: No - SURGICAL HISTORY Hx Cholecystectomy: Yes - ANESTHESIA Hx Malignant Hyperthermia: No Meds Allergies/Adverse Reactions: Allergies Allergy/AdvReac Type Severity Reaction Status Date / Time No Known Allergies Allergy Verified 05/24/17 19:51 Physical Exam - Constitutional Appears: No Acute Distress - Eye Exam Eye Exam: EOMI - ENT Exam ENT Exam: Mucous Membranes Moist - Respiratory Exam Respiratory Exam: Clear to Auscultation Bilateral, NORMAL BREATHING PATTERN. absent: Wheezes - Cardiovascular Exam Cardiovascular Exam: REGULAR RHYTHM, +S1, +S2 - GI/Abdominal Exam GI & Abdominal Exam: Normal Bowel Sounds, Soft, Tenderness (epigastric) - Extremities Exam Extremities exam: Negative for: calf tenderness - Back Exam Back exam: absent: CVA tenderness (L), CVA tenderness (R) - Neurological Exam Neurological exam: Alert - Psychiatric Exam Psychiatric exam: Normal Affect, Normal Mood Results - Vital Signs Recent Vital Signs: Last Vital Signs Temp 100.2 F H 03/08/18 21:52 Pulse 94 H 03/08/18 21:52 Resp 16 03/08/18 21:52 BP 129/70 03/08/18 21:52 Pulse Ox 94 L 03/08/18 21:52 - Labs Result Diagrams: 03/08/18 14:00 03/08/18 14:00 Labs: Laboratory Results - last 24 hr 03/08/18 03/08/18 03/08/18 14:00 14:00 14:00 WBC 13.0 H D RBC 4.15 L Hgb 13.1 Hct 39.4 MCV 95.0 H D MCH 31.5 H MCHC 33.2 RDW 13.9 Plt Count 512 H MPV 7.5 Neut % (Auto) 91.5 H Lymph % (Auto) 3.1 L [place] % (Auto) 5.2 Eos % (Auto) 0.1 Baso % (Auto) 0.1 Neut # (Auto) 11.9 H Lymph # (Auto) 0.4 L [place] # (Auto) 0.7 Eos # (Auto) 0.0 Baso # (Auto) 0.0 Neutrophils % (Manual) 84 H Lymphocytes % (Manual) 5 L Reactive Lymphs % 1 H Monocytes % (Manual) 8 Eosinophils % (Manual) 1 Basophils % (Manual) 1 Platelet Estimate Increased H RBC Morphology Normal Sodium 139 Potassium 3.4 L Chloride 105 Carbon Dioxide 24 Anion Gap 13 BUN 20 Creatinine 0.5 L Est GFR ( Amer) > 60 Est GFR (Non-Af Amer) > 60 Random Glucose 95 Calcium 9.0 Total Bilirubin 3.9 H AST 416 H D ALT 282 H D Alkaline Phosphatase 389 H D Total Protein 8.0 Albumin 4.2 Globulin 3.8 Albumin/Globulin Ratio 1.1 Grp A Beta Strep Ag Negative Assessment & Plan - Assessment and Plan (Free Text) Assessment: 77 yo M with pmhx of HTN and DM admitted for abdominal pain and elevated transaminase Plan: CT A/P: No acute abdominal or pelvic abnormality. Constipation. Scattered colonic diverticulosis without CT evidence for acute diverticulitis. RUQ US: 1.Fatty liver. 2.The patient is status post cholecystectomy. Abdominal pain Diagnostic imaging reviewed s/p cholecystectomy s/p zosyn in ER c/w zosyn WBC: 13.0 Elevated transaminase with elevated t. bili GI: Dr. Abrams consulted: Recs appreciated NPO IVF pain management f/u am labs Elevated transaminase discontinued atorvastatin f/u am labs; trend Hypokalemia 3.4 IVF with K 20 meq f/u BMP Hx of TIA c/w plavix consider addition of asa Sore throat Cepachol DM metformin held hba1c: 5.8 on 02/20/2018 from 11.5 on 05/24/2017 accuchecks ACHS ISS Hypoglycemia protocol HTN controlled c/w home meds DVT/GI prophylaxis SCD Pantoprazole Case and plan d/w Dr. Fady Jimenez MD PGY-2 <Lee Shrestha - Last Filed: 03/09/18 04:56> Results - Vital Signs Recent Vital Signs: Last Vital Signs Temp 98.7 F 03/09/18 00:31 Pulse 100 H 03/09/18 00:26 Resp 20 03/09/18 00:26 BP 108/55 L 03/09/18 00:04 Pulse Ox 96 03/09/18 00:26 - Labs Result Diagrams: 03/08/18 14:00 03/08/18 14:00 Labs: Laboratory Results - last 24 hr 03/08/18 03/08/18 03/08/18 14:00 14:00 14:00 WBC 13.0 H D RBC 4.15 L Hgb 13.1 Hct 39.4 MCV 95.0 H D MCH 31.5 H MCHC 33.2 RDW 13.9 Plt Count 512 H MPV 7.5 Neut % (Auto) 91.5 H Lymph % (Auto) 3.1 L [place] % (Auto) 5.2 Eos % (Auto) 0.1 Baso % (Auto) 0.1 Neut # (Auto) 11.9 H Lymph # (Auto) 0.4 L [place] # (Auto) 0.7 Eos # (Auto) 0.0 Baso # (Auto) 0.0 Neutrophils % (Manual) 84 H Lymphocytes % (Manual) 5 L Reactive Lymphs % 1 H Monocytes % (Manual) 8 Eosinophils % (Manual) 1 Basophils % (Manual) 1 Platelet Estimate Increased H RBC Morphology Normal Sodium 139 Potassium 3.4 L Chloride 105 Carbon Dioxide 24 Anion Gap 13 BUN 20 Creatinine 0.5 L Est GFR ( Amer) > 60 Est GFR (Non-Af Amer) > 60 POC Glucose (mg/dL) Random Glucose 95 Calcium 9.0 Total Bilirubin 3.9 H AST 416 H D ALT 282 H D Alkaline Phosphatase 389 H D Total Protein 8.0 Albumin 4.2 Globulin 3.8 Albumin/Globulin Ratio 1.1 Grp A Beta Strep Ag Negative 03/08/18 22:59 WBC RBC Hgb Hct MCV MCH MCHC RDW Plt Count MPV Neut % (Auto) Lymph % (Auto) [place] % (Auto) Eos % (Auto) Baso % (Auto) Neut # (Auto) Lymph # (Auto) [place] # (Auto) Eos # (Auto) Baso # (Auto) Neutrophils % (Manual) Lymphocytes % (Manual) Reactive Lymphs % Monocytes % (Manual) Eosinophils % (Manual) Basophils % (Manual) Platelet Estimate RBC Morphology Sodium Potassium Chloride Carbon Dioxide Anion Gap BUN Creatinine Est GFR ( Amer) Est GFR (Non-Af Amer) POC Glucose (mg/dL) 125 H Random Glucose Calcium Total Bilirubin AST ALT Alkaline Phosphatase Total Protein Albumin Globulin Albumin/Globulin Ratio Grp A Beta Strep Ag Attending/Attestation - Attestation I have personally seen and examined this patient.: Yes I have fully participated in the care of the patient.: Yes I have reviewed all pertinent clinical information: Yes Notes (Text): 03/09/18 04:41 I saw, examined and discussed this patient with Dr Jimenez. I agree with the assessment and plan above. This is a 77 years old male with hx of DM II, HLD on lipitor and Cholecystectomy comes with upper abdominal pain and a WBC of 13 and temperature of 100.2. CT abdomen showed sign of constipation and no acute abdominal nor pelvic abnormality with mild intrahepatic duct dilatation. Abdominal US showed Fatty liver. We will give Colace and Milk of Magnesium for constipation along with pain management. Follow Lipase. Hold Lipitor as this may be the cause of the Transaminitis along with the fatty liver. We will defer MRCP to the District Court Administrator as at present there is no intra hepatic biliary ductal dilation as per Abdominal US. The Patient is placed on Emperic Zosyn for Possible Cholangitis. Treat DM II. hold Metformin for 48 hours because of recent use of contrast dye. Lee Shrestha MD
[2018-03-08] MEDS ORDERED: Potassium Chl 20 mEq in NS 1,000 ML IV SCH (23:45)
[2018-03-08] MEDS ORDERED: Benzocaine/Menthol (Cepacol) Lozenge PO ONE (23:47)
[2018-03-09] MEDS ORDERED: Piperacillin/Tazobact 3.375 GM in Sodium Chloride 0.9% 100 ML IVPB SCH ×2 (04:00→21:00)
[2018-03-09] MEDS ORDERED: Magnesium Hydroxide Susp 30 ml UD PO PRN (04:29)
[2018-03-09 06:23] LABS: MEAN CELL VOLUME 94.7 fl (80.0-94.0); MEAN CORPUSCULAR HEMOGLOBIN 31.6 pg (27.0-31.0); MEAN CORPUSCULAR HGB CONC 33.4 g/dL (33.0-37.0); RBC 3.79 Mil/uL (4.40-5.90); WHITE BLOOD COUNT 10.8 K/uL (4.8-10.8)
[2018-03-09 06:43] LABS: ALBUMIN 3.2 g/dL (3.5-5.0); ALT/SGPT 199 U/L (21-72); AST/SGOT 239 U/L (17-59); BLOOD UREA NITROGEN 18 mg/dl (9-20); CALCIUM 7.9 mg/dL (8.4-10.2); GFR NON-AFRICAN AMERICAN > 60
[2018-03-09] MEDS: Insulin Regular 100 units/ml SC SCH ×4 (07:05→22:34)
[2018-03-09] MEDS ORDERED: Potassium Chloride 20 mEq ER Tab PO ONE (08:45)
--- NOTE | 2018-03-09 11:00 | US ---
Date of service: 03/08/2018 HISTORY: RUQ, epigastric pain, elev LFTs COMPARISON: None. TECHNIQUE: Sonographic evaluation of the right upper quadrant of the abdomen. FINDINGS: LIVER: Measures 13.8 cm in length. Diffusely increased echogenicity of the liver parenchyma. Consistent with fatty infiltration. Smooth contour. No mass. No intrahepatic biliary ductal dilatation. Normal hepatopetal portal venous flow. No evidence of portal venous thrombosis. GALLBLADDER: Status post cholecystectomy COMMON BILE DUCT: Measures 5 mm. No stones. No dilatation. PANCREAS: Unremarkable as visualized. No mass. No ductal dilatation. RIGHT KIDNEY: Measures 10.3 cm in length. Normal echogenicity. No calculus, mass, or hydronephrosis. AORTA: No aneurysmal dilatation. IVC: Unremarkable. OTHER FINDINGS: None . IMPRESSION: Fatty infiltration of the liver. Status post cholecystectomy. No evidence of portal venous thrombosis. Otherwise unremarkable examination. 7:39 p.m. on 03/08/2018
[2018-03-09] MEDS: Pantoprazole 20 mg EC Tab PO SCH (11:08)
--- NOTE | 2018-03-09 11:34 | CP.PCM.PN ---
Subjective - Date & Time of Evaluation Date of Evaluation: 03/09/18 Time of Evaluation: 09:20 - Subjective Subjective: Pt seen/evaluated at bedside; and daughter at bedside. No acute events overnight. Reports improvement in abdominal pain symptoms. Objective - Vital Signs/Intake and Output Vital Signs (last 24 hours): Temp Pulse Resp BP Pulse Ox 98.7 F 50 L 20 114/71 94 L 03/09/18 08:20 03/09/18 11:09 03/09/18 08:20 03/09/18 11:09 03/09/18 08:20 - Medications Medications: Current Medications Amlodipine Besylate (Norvasc) 5 mg PO DAILY [facility] Last Admin: 03/09/18 11:09 Dose: Not Given Clopidogrel Bisulfate (Plavix) 75 mg PO DAILY [facility] Last Admin: 03/09/18 11:08 Dose: 75 mg Dextrose (Dextrose 50% Inj) 0 ml IV STAT PRN; Protocol PRN Reason: Hypoglycemia Protocol Dextrose (Glutose 15) 0 gm PO ONCE PRN; Protocol PRN Reason: Hypoglycemia Protocol Docusate Sodium (Colace) 100 mg PO BID [facility] Last Admin: 03/09/18 11:08 Dose: 100 mg Glipizide (Glucotrol) 5 mg PO ACL [facility] Last Admin: 03/09/18 11:08 Dose: 5 mg Glucagon (Glucagen Diagnostic Kit) 0 mg IM STAT PRN; Protocol PRN Reason: Hypoglycemia Protocol Potassium Chloride/Sodium Chloride (Potassium Chl 20 Meq In Ns) 1,000 mls @ 100 mls/hr IV .Q10H [facility] Stop: 03/09/18 23:46 Last Admin: 03/08/18 23:55 Dose: 100 mls/hr Insulin Human Regular (Humulin R) 0 units SC ACHS [facility]; Protocol Last Admin: 03/09/18 11:01 Dose: Not Given Magnesium Hydroxide (Milk Of Magnesia) 30 ml PO DAILY PRN PRN Reason: Constipation Last Admin: 03/09/18 04:58 Dose: 30 ml Morphine Sulfate (Morphine) 1 mg IVP Q4 PRN PRN Reason: Pain, moderate (4-7) Morphine Sulfate (Morphine) 2 mg IVP Q4 PRN PRN Reason: Pain, severe (8-10) Pantoprazole Sodium (Protonix Ec Tab) 20 mg PO DAILY [facility] Last Admin: 03/09/18 11:08 Dose: 20 mg - Labs Labs: 03/09/18 05:40 03/09/18 05:40 - Constitutional Appears: No Acute Distress - Head Exam Head Exam: NORMAL INSPECTION - Eye Exam Eye Exam: Normal appearance - ENT Exam ENT Exam: Mucous Membranes Moist - Respiratory Exam Respiratory Exam: Clear to Ausculation Bilateral, NORMAL BREATHING PATTERN - Cardiovascular Exam Cardiovascular Exam: REGULAR RHYTHM, +S1, +S2 - GI/Abdominal Exam GI & Abdominal Exam: Soft, Normal Bowel Sounds. absent: Tenderness - Extremities Exam Extremities Exam: absent: Calf Tenderness, Pedal Edema - Neurological Exam Neurological Exam: Alert - Psychiatric Exam Psychiatric exam: Normal Mood - Skin Skin Exam: Dry, Warm Additional comments: vitiligo Assessment and Plan - Assessment and Plan (Free Text) Assessment: 77 yo M with pmhx of HTN, DM, CVA, admitted for abdominal pain and transaminitis. Pt has hx cholecystectomy; recently re-started on lipitor 2 weeks ago following CVA that was treated with tPA with no residual effects. Abdominal pain improved. (03/08/18) AST/ALT: 416/282 T bili :3.9 (03/09/18) AST/ALT: 239/199 T bili: 6.8 CT A/P: No acute abdominal or pelvic abnormality. Constipation. Scattered colonic diverticulosis without CT evidence for acute diverticulitis. RUQ US: 1.Fatty liver. 2.The patient is status post cholecystectomy. Plan: Elevated transaminase - Discontinued lipitor - Discontinued zosyn - GI eval - Dr. Abrams; recs appreciated - MRCP ordered - NPO; IVF Leukocytosis - Resolved now - Will obtain UA, F/u blood cultures Hypokalemia - Replete with PO K Hx of TIA - Continue with plavix; aspirin Sore throat - Cepachol DM - Metformin held - Hba1c: 5.8 on 02/20/2018 from 11.5 on 05/24/2017 - Accuchecks ACHS, inslin coverage scale and hypoglycemia protocol HTN - Continue with home meds DVT/GI prophylaxis - SCD - Pantoprazole
[2018-03-09] MEDS ORDERED: Gadodiamide 287 MG/ML VIAL (15ML) IV ONE (12:56)
[2018-03-09] MEDS ORDERED: Dextrose 50% SYRINGE Inj (50 ml) IVP ONE (16:09)
--- NOTE | 2018-03-09 16:11 | MRI ---
Date of service: 03/09/2018 PROCEDURE: Magnetic Resonance Cholangiopancreatography HISTORY: Abnormal LFTs. Rule out biliary obstruction. COMPARISON: None available. TECHNIQUE: Multiplanar, multisequence MR images of the abdomen were obtained, including heavily T2 weighted MRCP images of the biliary system. Rotating maximum intensity projection images of the biliary system were generated. FINDINGS: MRCP: The common bile duct is dilated up to a diameter of approximately 13 mm. There is an ovoid filling defect in the distal common bile duct measuring approximately 18 mm in greatest dimension, most likely a gallstone. There is mild central intrahepatic biliary dilatation. No pancreatic ductal dilatation seen. LIVER: Normal size, contour and signal intensity. Mild central intrahepatic biliary ductal dilatation. No mass. GALLBLADDER: Status post cholecystectomy no mass or fluid collection in gallbladder fossa. SPLEEN: Unremarkable. PANCREAS: No mass. No pancreatic ductal dilatation. No evidence of pancreatitis. ADRENALS: Unremarkable. KIDNEYS: Unremarkable. AORTA: No aneurysm. ASCITES: None. OTHER FINDINGS: None. IMPRESSION: 18 mm filling defect in distal common bile duct, most likely a gallstone. Status post cholecystectomy. Mild central intrahepatic biliary dilatation. Dilated common bile duct up to 18 mm. No associated pancreatic ductal dilatation
[2018-03-09] MEDS ORDERED: Potassium Chl 40 mEq in D5-NS 1,000 ML IV SCH (16:15)
[2018-03-09] MEDS ORDERED: Lactated Ringer's 1,000 ML IV SCH (16:30)
--- NOTE | 2018-03-09 16:46 | CP.PCM.CON ---
History of Present Illness - History of Present Illness History of Present Illness: 77 yo male admitted with epigastric abdominal pain radiating to the back. Approximately a year ago had lap leola followed by ERCP with papillotomy and stone extraction. Came to ER for epigastric pain radiating to his back and elevated LFTs. Review of Systems - Constitutional Constitutional: absent: Chills - EENT Eyes: absent: Blurred Vision Nose/Mouth/Throat: absent: Nasal Congestion - Cardiovascular Cardiovascular: absent: Chest Pain - Respiratory Respiratory: absent: Dyspnea - Gastrointestinal Gastrointestinal: As Per HPI Past Patient History - Infectious Disease Hx of Infectious Diseases: None - Past Medical History & Family History Past Medical History?: Yes - Past Social History Alcohol: None Drugs: Denies Home Situation {Lives}: With Family - CARDIAC Hx Cardiac Disorders: Yes Hx Hypercholesterolemia: Yes Hx Hypertension: Yes - PULMONARY Hx Respiratory Disorders: No - NEUROLOGICAL Hx Alzheimer's Disease: No Hx Transient Ischemic Attacks (TIA): Yes (Admitted last month?) - HEENT Hx HEENT Problems: No - RENAL Hx Chronic Kidney Disease: No - ENDOCRINE/METABOLIC Hx Endocrine Disorders: Yes Hx Diabetes Mellitus Type 2: Yes - HEMATOLOGICAL/ONCOLOGICAL Hx Human Immunodeficiency Virus (HIV): No - INTEGUMENTARY Other/Comment: Vetiligo - MUSCULOSKELETAL/RHEUMATOLOGICAL Hx Musculoskeletal Disorders: Yes Hx Falls: Yes - GASTROINTESTINAL Hx Gastrointestinal Disorders: Yes Hx Nausea: Yes Hx Vomiting: Yes - GENITOURINARY/GYNECOLOGICAL Hx Genitourinary Disorders: Yes Hx Prostate Problems: Yes (BPH) - PSYCHIATRIC Hx Psychophysiologic Disorder: No Hx Substance Use: No - SURGICAL HISTORY Hx Cholecystectomy: Yes - ANESTHESIA Hx Malignant Hyperthermia: No Meds Allergies/Adverse Reactions: Allergies Allergy/AdvReac Type Severity Reaction Status Date / Time No Known Allergies Allergy Verified 05/24/17 19:51 - Medications Medications: Current Medications Amlodipine Besylate (Norvasc) 5 mg PO DAILY [facility] Last Admin: 03/09/18 11:09 Dose: Not Given Dextrose (Dextrose 50% Inj) 0 ml IV STAT PRN; Protocol PRN Reason: Hypoglycemia Protocol Dextrose (Glutose 15) 0 gm PO ONCE PRN; Protocol PRN Reason: Hypoglycemia Protocol Docusate Sodium (Colace) 100 mg PO BID [facility] Last Admin: 03/09/18 11:08 Dose: 100 mg Glipizide (Glucotrol) 5 mg PO ACL [facility] Last Admin: 03/09/18 11:08 Dose: 5 mg Glucagon (Glucagen Diagnostic Kit) 0 mg IM STAT PRN; Protocol PRN Reason: Hypoglycemia Protocol Potassium Chloride/Dextrose/Sod Cl (D5-Ns1l+40meq Kcl) 1,000 mls @ 80 mls/hr IV .[id number] [facility] Stop: 03/10/18 16:12 Lactated Ringer's (Lactated Ringer's) 1,000 mls @ 100 mls/hr IV .Q10H [facility] Insulin Human Regular (Humulin R) 0 units SC ACHS [facility]; Protocol Last Admin: 03/09/18 16:21 Dose: Not Given Magnesium Hydroxide (Milk Of Magnesia) 30 ml PO DAILY PRN PRN Reason: Constipation Last Admin: 03/09/18 04:58 Dose: 30 ml Morphine Sulfate (Morphine) 1 mg IVP Q4 PRN PRN Reason: Pain, moderate (4-7) Morphine Sulfate (Morphine) 2 mg IVP Q4 PRN PRN Reason: Pain, severe (8-10) Pantoprazole Sodium (Protonix Ec Tab) 20 mg PO DAILY [facility] Last Admin: 03/09/18 11:08 Dose: 20 mg Physical Exam - Constitutional Appears: No Acute Distress - Head Exam Head Exam: NORMAL INSPECTION - Eye Exam Eye Exam: Normal appearance - ENT Exam ENT Exam: Mucous Membranes Moist - Respiratory Exam Respiratory Exam: Clear to Auscultation Bilateral - Cardiovascular Exam Cardiovascular Exam: REGULAR RHYTHM, +S1, +S2 - GI/Abdominal Exam GI & Abdominal Exam: Normal Bowel Sounds, Soft, Tenderness Results - Vital Signs Recent Vital Signs: Last Vital Signs Temp 99.5 F 03/09/18 16:14 Pulse 66 03/09/18 16:14 Resp 20 03/09/18 16:14 BP 153/74 H 03/09/18 16:14 Pulse Ox 100 03/09/18 16:14 - Labs Result Diagrams: 03/09/18 05:40 03/09/18 05:40 Labs: Laboratory Results - last 24 hr 03/08/18 03/09/18 03/09/18 22:59 05:33 05:40 WBC 10.8 RBC 3.79 L Hgb 12.0 Hct 35.9 MCV 94.7 H MCH 31.6 H MCHC 33.4 RDW 14.0 Plt Count 460 H Sodium Potassium Chloride Carbon Dioxide Anion Gap BUN Creatinine Est GFR ( Amer) Est GFR (Non-Af Amer) POC Glucose (mg/dL) 125 H 104 Random Glucose Calcium Magnesium Total Bilirubin AST ALT Alkaline Phosphatase Total Protein Albumin Globulin Albumin/Globulin Ratio Lipase 03/09/18 03/09/18 03/09/18 05:40 05:40 10:50 WBC RBC Hgb Hct MCV MCH MCHC RDW Plt Count Sodium 138 Potassium 3.2 L Chloride 104 Carbon Dioxide 26 Anion Gap 11 BUN 18 Creatinine 0.8 Est GFR ( Amer) > 60 Est GFR (Non-Af Amer) > 60 POC Glucose (mg/dL) 93 Random Glucose 111 H Calcium 7.9 L Magnesium 1.8 Total Bilirubin 6.8 H AST 239 H D ALT 199 H D Alkaline Phosphatase 267 H D Total Protein 6.5 Albumin 3.2 L D Globulin 3.2 Albumin/Globulin Ratio 1.0 Lipase 59 03/09/18 03/09/18 15:57 15:59 WBC RBC Hgb Hct MCV MCH MCHC RDW Plt Count Sodium Potassium Chloride Carbon Dioxide Anion Gap BUN Creatinine Est GFR ( Amer) Est GFR (Non-Af Amer) POC Glucose (mg/dL) 56 L 61 L Random Glucose Calcium Magnesium Total Bilirubin AST ALT Alkaline Phosphatase Total Protein Albumin Globulin Albumin/Globulin Ratio Lipase - Imaging and Cardiology MRI - abdomen Status: Image reviewed by me, Report reviewed by me Assessment & Plan (1) Choledocholithiasis Assessment and Plan: Elevated LFTs with dilated CBD and evidence on MRCP of CBD stone. ERCP in AM. Status: Acute
--- NOTE | 2018-03-09 19:09 | CARD ---
APPROVED REPORT Date of service: 03/08/2018 EKG Measurement Heart [id number] <Conclusion> Normal sinus rhythm Left axis deviation Possible Inferior-posterior infarct, age undetermined Abnormal ECG
[2018-03-10] MEDS ORDERED: Morphine 4 MG/ML VIAL IVP PRN ×2 (00:15)
[2018-03-10 03:31] LABS: SQUAMOUS EPITHIAL 1 /hpf (0-5); URINE BACTERIA RARE (<OCC); URINE BILIRUBIN NEGATIVE (NEGATIVE); URINE BLOOD NEGATIVE (NEGATIVE); URINE CLARITY SLIGHTY-CLOUDY (Clear); URINE COLOR AMBER (YELLOW); URINE GLUCOSE (UA) 50 mg/dL (NEGATIVE); URINE LEUKOCYTE ESTERASE NEG Leu/uL (Negative); URINE PROTEIN 30 mg/dL (NEGATIVE); URINE UROBILINOGEN 0.2-1.0 mg/dL (0.2-1.0)
[2018-03-10 06:54] LABS: HEMOGLOBIN 12.3 g/dL (12.0-18.0); MEAN CELL VOLUME 93.2 fl (80.0-94.0); MEAN CORPUSCULAR HEMOGLOBIN 31.8 pg (27.0-31.0); MEAN CORPUSCULAR HGB CONC 34.1 g/dL (33.0-37.0); RBC 3.86 Mil/uL (4.40-5.90); WHITE BLOOD COUNT 7.4 K/uL (4.8-10.8)
[2018-03-10] MEDS: Insulin Regular 100 units/ml SC SCH (07:08)
[2018-03-10 07:19] LABS: ALBUMIN 3.4 g/dL (3.5-5.0); ALT/SGPT 158 U/L (21-72); AST/SGOT 133 U/L (17-59); BLOOD UREA NITROGEN 15 mg/dl (9-20); CALCIUM 8.4 mg/dL (8.4-10.2); GFR NON-AFRICAN AMERICAN > 60
[2018-03-10] MEDS ORDERED: Iohexol 240 (50 ml) ONE (07:52)
[2018-03-10] MEDS ORDERED: Lactated Ringer's 500 ML IV ONE (08:24)
[2018-03-10] MEDS ORDERED: Etomidate 20 mg/10ml Inj IV ONE (08:32)
[2018-03-10] MEDS ORDERED: Midazolam 2 MG/2 ML VIAL ONE (08:33)
[2018-03-10] MEDS ORDERED: Propofol 10 mg/ml Inj (20 ML) ONE (08:33)
--- NOTE | 2018-03-10 10:06 | CP.PCM.PN ---
Subjective - Date & Time of Evaluation Date of Evaluation: 03/10/18 Time of Evaluation: 08:00 - Subjective Subjective: Pt not seen this morning as she was getting ERCP completed. No acute events overnight. Objective - Vital Signs/Intake and Output Vital Signs (last 24 hours): Temp Pulse Resp BP Pulse Ox 99.2 F 51 L 17 126/57 L 99 03/10/18 09:30 03/10/18 09:30 03/10/18 09:30 03/10/18 09:30 03/10/18 09:30 Intake and Output: 03/10/18 03/10/18 06:59 18:59 Intake Total 300 Balance 300 - Medications Medications: Current Medications Amlodipine Besylate (Norvasc) 5 mg PO DAILY [facility] Last Admin: 03/09/18 11:09 Dose: Not Given Dextrose (Dextrose 50% Inj) 0 ml IV STAT PRN; Protocol PRN Reason: Hypoglycemia Protocol Dextrose (Glutose 15) 0 gm PO ONCE PRN; Protocol PRN Reason: Hypoglycemia Protocol Docusate Sodium (Colace) 100 mg PO BID [facility] Last Admin: 03/09/18 16:39 Dose: 100 mg Glipizide (Glucotrol) 5 mg PO ACL [facility] Last Admin: 03/09/18 11:08 Dose: 5 mg Glucagon (Glucagen Diagnostic Kit) 0 mg IM STAT PRN; Protocol PRN Reason: Hypoglycemia Protocol Potassium Chloride/Dextrose/Sod Cl (D5-Ns1l+40meq Kcl) 1,000 mls @ 80 mls/hr IV .[id number] [facility] Stop: 03/10/18 16:12 Last Admin: 03/09/18 16:38 Dose: 80 mls/hr Lactated Ringer's (Lactated Ringer's) 1,000 mls @ 100 mls/hr IV .Q10H [facility] Last Admin: 03/10/18 02:00 Dose: Not Given Piperacillin Sod/Tazobactam (Sod 3.375 gm/ Sodium Chloride) 100 mls @ 100 mls/hr IVPB Q12 [facility]; Protocol Last Admin: 03/09/18 21:28 Dose: 100 mls/hr Insulin Human Regular (Humulin R) 0 units SC ACHS [facility]; Protocol Last Admin: 03/10/18 07:08 Dose: Not Given Magnesium Hydroxide (Milk Of Magnesia) 30 ml PO DAILY PRN PRN Reason: Constipation Last Admin: 03/09/18 04:58 Dose: 30 ml Morphine Sulfate (Morphine) 1 mg IVP Q4 PRN PRN Reason: Pain, moderate (4-7) Last Admin: 03/10/18 00:14 Dose: 1 mg Morphine Sulfate (Morphine) 2 mg IVP Q4 PRN PRN Reason: Pain, severe (8-10) Pantoprazole Sodium (Protonix Ec Tab) 20 mg PO DAILY [facility] Last Admin: 03/09/18 11:08 Dose: 20 mg - Labs Labs: 03/10/18 06:05 03/10/18 06:05 - Constitutional Appears: No Acute Distress Assessment and Plan - Assessment and Plan (Free Text) Assessment: Assessment: 77 yo M with pmhx of HTN, DM, CVA, admitted for abdominal pain and t ransaminitis. Pt has hx cholecystectomy 6M ago; recently re-started on lipitor 2 weeks ago following CVA that was treated with tPA with no residual effects. Abdominal pain improved. (03/08/18) AST/ALT: 416/282 T bili :3.9 (03/09/18) AST/ALT: 239/199 T bili: 6.8 CT A/P: No acute abdominal or pelvic abnormality. Constipation. Scattered colonic diverticulosis without CT evidence for acute diverticulitis. RUQ US: 1.Fatty liver. 2.The patient is status post cholecystectomy. Plan: Elevated transaminase - Avoid Hepatotoxic meds-Statin and and Zosyn discontinued yesterday - No signs or concerning features for cholecystitis - GI eval - Dr. Abrams; recs appreciated - MRCP: 18 mm filling defect in distal common bile duct, most likely a gallstone. Mild central intrahepatic biliary dilatation. Dilated CBD up to 18mm - ERCP today - IVF and NPO overnight Hypertension -Elevated BP yesterday, started on Norvasc 5mg daily; now normotensive -Continue to monitor BP Hypokalemia - Replete with IV K in maintanence fluids - 3.6 today Hx of TIA - Continue with plavix; aspirin Sore throat - Cepachol DM - Metformin held - Hba1c: 5.8 on 02/20/2018 from 11.5 on 05/24/2017 - Accuchecks ACHS, insulin coverage scale and hypoglycemia protocol -Glipizide held until patient is eating HTN - Continue with home meds DVT/GI prophylaxis - SCD - Pantoprazole
[2018-03-10 10:14] VITALS: RESP 18
[2018-03-10 10:54] VITALS: BP 144/63; PULSE 55; TEMP 98.8; O2SAT 97
[2018-03-10] MEDS: Pantoprazole 20 mg EC Tab PO SCH (10:56)
--- NOTE | 2018-03-10 11:12 | CP.PCM.DIS ---
Provider - Provider Date of Admission: 03/08/18 20:40 Attending physician: Lee Shrestha Consults: 03/09/18 08:00 Gastroenterology Consult Routine Comment: Consulting Provider: Juan Abrams Consulting Physician: Juan Abrams Reason for Consult: Abdo pain, elevated LFT and t. bili. s/p cholecystectomy Time Spent in preparation of Discharge (in minutes): 35 Diagnosis - Discharge Diagnosis (1) Abdominal pain Status: Resolved (2) Elevated liver enzymes Status: Resolved (3) Sore throat Status: Acute Hospital Course - Lab Results Lab Results: Micro Results 03/09/18 03:12 Blood Blood Culture - Preliminary NO GROWTH AFTER 24 HOURS 03/09/18 03:12 Blood Blood Culture - Preliminary NO GROWTH AFTER 24 HOURS Most Recent Lab Values WBC 7.4 K/uL (4.8-10.8) 03/10/18 06:05 RBC 3.86 Mil/uL (4.40-5.90) L 03/10/18 06:05 Hgb 12.3 g/dL (12.0-18.0) 03/10/18 06:05 Hct 36.0 % (35.0-51.0) 03/10/18 06:05 MCV 93.2 fl (80.0-94.0) 03/10/18 06:05 MCH 31.8 pg (27.0-31.0) H 03/10/18 06:05 MCHC 34.1 g/dL (33.0-37.0) 03/10/18 06:05 RDW 14.0 % (11.5-14.5) 03/10/18 06:05 Plt Count 441 K/uL (130-400) H 03/10/18 06:05 MPV 7.5 fl (7.2-11.7) 03/08/18 14:00 Neut % (Auto) 91.5 % (50.0-75.0) H 03/08/18 14:00 Lymph % (Auto) 3.1 % (20.0-40.0) L 03/08/18 14:00 [place] % (Auto) 5.2 % (0.0-10.0) 03/08/18 14:00 Eos % (Auto) 0.1 % (0.0-4.0) 03/08/18 14:00 Baso % (Auto) 0.1 % (0.0-2.0) 03/08/18 14:00 Neut # (Auto) 11.9 K/uL (1.8-7.0) H 03/08/18 14:00 Lymph # (Auto) 0.4 K/uL (1.0-4.3) L 03/08/18 14:00 [place] # (Auto) 0.7 K/uL (0.0-0.8) 03/08/18 14:00 Eos # (Auto) 0.0 K/uL (0.0-0.7) 03/08/18 14:00 Baso # (Auto) 0.0 K/uL (0.0-0.2) 03/08/18 14:00 Neutrophils % (Manual) 84 % (42-75) H 03/08/18 14:00 Lymphocytes % (Manual) 5 % (20-50) L 03/08/18 14:00 Reactive Lymphs % 1 % (0-0) H 03/08/18 14:00 Monocytes % (Manual) 8 % (0-10) 03/08/18 14:00 Eosinophils % (Manual) 1 % (0-7) 03/08/18 14:00 Basophils % (Manual) 1 % (0-2) 03/08/18 14:00 Platelet Estimate Increased (NORMAL) H 03/08/18 14:00 RBC Morphology Normal (NORMAL) 03/08/18 14:00 Sodium 138 mmol/l (132-148) 03/10/18 06:05 Potassium 3.6 MMOL/L (3.6-5.0) 03/10/18 06:05 Chloride 107 mmol/L (98-107) 03/10/18 06:05 Carbon Dioxide 27 mmol/L (22-30) 03/10/18 06:05 Anion Gap 8 (10-20) L 03/10/18 06:05 BUN 15 mg/dl (9-20) 03/10/18 06:05 Creatinine 0.7 mg/dl (0.8-1.5) L 03/10/18 06:05 Est GFR ( Amer) > 60 03/10/18 06:05 Est GFR (Non-Af Amer) > 60 03/10/18 06:05 POC Glucose (mg/dL) 114 mg/dL (65-110) H 03/10/18 06:14 Random Glucose 125 mg/dL (75-110) H 03/10/18 06:05 Calcium 8.4 mg/dL (8.4-10.2) 03/10/18 06:05 Phosphorus 2.3 mg/dl (2.5-4.5) L 03/10/18 06:05 Magnesium 2.1 MG/DL (1.6-2.3) 03/10/18 06:05 Total Bilirubin 6.0 mg/dl (0.2-1.3) H 03/10/18 06:05 AST 133 U/L (17-59) H D 03/10/18 06:05 ALT 158 U/L (21-72) H D 03/10/18 06:05 Alkaline Phosphatase 290 U/L (38-126) H 03/10/18 06:05 Total Protein 6.8 G/DL (6.3-8.2) 03/10/18 06:05 Albumin 3.4 g/dL (3.5-5.0) L 03/10/18 06:05 Globulin 3.4 gm/dL (2.2-3.9) 03/10/18 06:05 Albumin/Globulin Ratio 1.0 (1.0-2.1) 03/10/18 06:05 Lipase 59 U/L (23-300) 03/09/18 05:40 Urine Color Marjorie (YELLOW) 03/10/18 02:06 Urine Clarity Slighty-cloudy (Clear) 03/10/18 02:06 Urine pH 7.0 (5.0-8.0) 03/10/18 02:06 Ur Specific [place] 1.013 (1.003-1.030) 03/10/18 02:06 Urine Protein 30 mg/dL (NEGATIVE) 03/10/18 02:06 Urine Glucose (UA) 50 mg/dL (NEGATIVE) 03/10/18 02:06 Urine Ketones Negative mg/dL (NEGATIVE) 03/10/18 02:06 Urine Blood Negative (NEGATIVE) 03/10/18 02:06 Urine Nitrate Negative (NEGATIVE) 03/10/18 02:06 Urine Bilirubin Negative (NEGATIVE) 03/10/18 02:06 Urine Urobilinogen 0.2-1.0 mg/dL (0.2-1.0) 03/10/18 02:06 Ur Leukocyte Esterase Neg [place]/uL (Negative) 03/10/18 02:06 Urine RBC (Auto) 1 /hpf (0-3) 03/10/18 02:06 Urine Microscopic WBC 2 /hpf (0-5) 03/10/18 02:06 Ur Squamous Epith Cells 1 /hpf (0-5) 03/10/18 02:06 Urine Bacteria Rare (<OCC) 03/10/18 02:06 Grp A Beta Strep Ag Negative (NEGATIVE) 03/08/18 14:00 - Hospital Course Hospital Course: 77 yo M with pmhx of HTN, DM, CVA, hx of cholecystectomy 6months ago, admitted for abdominal pain, transaminitis, ad elevated total bilirubin. Recently re- started on lipitor 2 weeks ago following CVA that was treated with tPA with no residual effects. GI was consulted. Pt had MRCP completed that ws significant for 8 mm filling defect in distal common bile duct, most likely a gallstone and subsequently had ERCP today in which a stone was removed from CBD. Pt was re- evaluated after procedure this morning. Pt tolerated diet and pain was well controlled. Was able to ambulate with ease. Transaminitis has been trending down since admission. During admission, pt reported sore throat, nasal discharge and facial pain. Flu and rapid strep were negative. Pt discharged home with 1 week course of Augement for bacterial sinusitis. Medication changes: Atorvastatin held in setting of transaminitis, needs to restart once resolved. Has f/u scheduled for 03/18 at [facility], pt made aware prior to discharge Discharge Exam - Head Exam Head Exam: NORMAL INSPECTION - Eye Exam Eye Exam: Normal appearance - ENT Exam ENT Exam: Mucous Membranes Moist - Respiratory Exam Respiratory Exam: Clear to PA & Lateral - Cardiovascular Exam Cardiovascular Exam: REGULAR RHYTHM - GI/Abdominal Exam GI & Abdominal Exam: Normal Bowel Sounds, Soft. absent: Tenderness - Neurological Exam Neurological exam: Normal Gait, Oriented x3 - Psychiatric Exam Psychiatric exam: Normal Affect - Skin Skin Exam: Normal Color Discharge Plan - Discharge Medications Prescriptions: Amoxicillin/Clavulanate [Augmentin 875 MG-125 MG] 1 tab PO Q12 7 Days #14 tab Benzocaine/Menthol [Cepacol Sore Throat Lozenge] 1 each MM Q6 #20 lozenge Ibuprofen [Motrin] 600 mg PO Q6 7 Days #20 tab - Follow Up Plan Condition: FAIR Disposition: HOME/ ROUTINE Instructions: High Fiber Diet, Diverticulosis (DC), Acute Abdominal Pain (DC), Acute Abdominal Pain (GEN) Additional Instructions: enrrique en la clinica de bude enero 24 a las 3:20pm con Dr. Hanley. Referrals: [facility] at [place] [Outside] Juan Abrams MD [Staff Provider] -
--- NOTE | 2018-03-10 12:48 | RAD ---
Date of service: 03/10/2018 PROCEDURE: Intraoperative Fluoroscopy. HISTORY: ERCP STONE FINDINGS: Fluoroscopic assistance was provided for ERCP. Please refer to the operative report from PK Mendoza. Total fluoroscopic time (continuous mode) utilized during the procedure 109.7 seconds. Total exam DLP: 29.40 (mGy).
== END 2018-03-10 12:41 | disposition home or self-care (01) ==
LOC: H.ER 13:40 → H.ERHOLD 20:40 → H.MEDSURG1 22:50
PROVIDERS: ADMIT Internal Medicine; ATTEND Internal Medicine
DX: K80.70 Calculus of gallbladder and bile duct without cholecystitis without obstruction (principal); N40.0 Benign prostatic hyperplasia without lower urinary tract symptoms; Z79.02 Long term (current) use of antithrombotics/antiplatelets; Z79.82 Long term (current) use of aspirin; Z86.73 Personal history of transient ischemic attack (TIA), and cerebral infarction without residual deficits; Z87.891 Personal history of nicotine dependence; Z90.49 Acquired absence of other specified parts of digestive tract; Z79.84 Long term (current) use of oral hypoglycemic drugs; Z79.899 Other long term (current) drug therapy; R79.89 Other specified abnormal findings of blood chemistry; D72.829 Elevated white blood cell count, unspecified; E11.649 Type 2 diabetes mellitus with hypoglycemia without coma; E78.00 Pure hypercholesterolemia, unspecified; E87.6 Hypokalemia; I10 Essential (primary) hypertension; K21.9 Gastro-esophageal reflux disease without esophagitis; K57.30 Diverticulosis of large intestine without perforation or abscess without bleeding; K59.00 Constipation, unspecified; K76.0 Fatty (change of) liver, not elsewhere classified
CPT/HCPCS: 36415; 43264; 74177; 74181; 76705; 80053; 81003; 82948; 83690; 83735; 84100; 85025; 85027; 87040; 87070; 87430; 87804; 93005; 96361; 96365; 96366; 96375; 99284; A9579; G0378; J2001; J2250; J2270; J2543; J2704; J3010; J7030; J7120; Q9966; Q9967

== ENCOUNTER 2018-07-16 19:44 | Emergency (ER) | payer SELFPAY ==
[2018-07-16 19:45] VITALS: BMI 24.2
[2018-07-16] MEDS ORDERED: Sodium Chloride 0.9% 1,000 ML IV STA (20:26)
[2018-07-16] MEDS ORDERED: Iohexol 240 (50 ml) PO ONE (20:29)
--- NOTE | 2018-07-16 20:31 | ED PDOC ---
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 Associated watery diarrhea (4x/day), and vomiting (1x/day). Patient states he has no appetite, but is tolerating water. Denies fever, chest pain, shortness of breath, palpitations, urinary symptoms, recent travel, sick contacts. PMD: [facility] Past Medical History Reviewed: Historical Data, Nursing Documentation, Vital Signs Vital Signs: Last Vital Signs Temp 98.6 F 07/16/18 20:00 Pulse 91 H 07/16/18 20:00 Resp 16 07/16/18 20:00 BP 135/74 07/16/18 20:00 Pulse Ox 94 L 07/16/18 20:00 Primary Care Provider: Procedure,Nonphys - Medical History PMH: CVA, Diabetes, HTN, Hypercholesterolemia, TIA (Admitted last month?) Denies: Alzheimer's Disease, HIV, Chronic Kidney Disease - Surgical History Surgical History: Cholecystectomy, Endoscopy - Family History Family History: States: Unknown Family Hx - Home Medications Home Medications: Ambulatory Orders Medication Instructions Recorded amLODIPine [Norvasc] 5 mg PO DAILY 02/20/18 Aspirin [Ecotrin] 81 mg PO DAILY #30 tabec 02/23/18 Clopidogrel [Plavix] 75 mg PO DAILY #30 tab 02/23/18 Amoxicillin/Clavulanate [Augmentin 1 tab PO Q12 7 Days #14 tab 03/10/18 875 MG-125 MG] Benzocaine/Menthol [Cepacol Sore 1 each MM Q6 #20 lozenge 03/10/18 Throat Lozenge] GlipiZIDE [Glucotrol] 5 mg PO ACL tab 03/10/18 Ibuprofen [Motrin] 600 mg PO Q6 7 Days #20 tab 03/10/18 - Allergies Allergies/Adverse Reactions: Allergies Allergy/AdvReac Type Severity Reaction Status Date / Time No Known Allergies Allergy Verified 05/24/17 19:51 Review of Systems ROS Statement: Except As Marked, All Systems Reviewed And Found Negative Gastrointestinal: Positive for: Nausea, Vomiting, Abdominal Pain, Diarrhea Physical Exam - Reviewed Nursing Documentation Reviewed: Yes Vital Signs Reviewed: Yes - Physical Exam Appears: Positive for: Well, Non-toxic, No Acute Distress Head Exam: Positive for: ATRAUMATIC, NORMAL INSPECTION, NORMOCEPHALIC Skin: Positive for: Normal Color Eye Exam: Positive for: Normal appearance ENT: Positive for: Normal ENT Inspection Cardiovascular/Chest: Positive for: Regular Rate, Rhythm Respiratory: Positive for: Normal Breath Sounds Gastrointestinal/Abdominal: Positive for: Bowel Sounds, Soft, Tenderness (epiga stric, periumbilical) Back: Positive for: Normal Inspection Extremity: Positive for: Normal ROM Neurological/Psych: Positive for: Awake, Alert, Oriented (x3) - Laboratory Results Result Diagrams: 07/16/18 20:45 07/16/18 20:45 - ECG O2 Sat by Pulse Oximetry: 94 - Progress ED Course And Treament: -cbc -cmp -lipase -urinalysis -CT abd/pelvis -EKG -IV NS bolus -IV pepcid -IV zofran 2343 CT Abdomen/Pelvis FINDINGS: LUNG BASES: The lung bases appear clear. No pleural effusions are seen. LIVER: There is hepatomegaly. The liver measured 17.3 cm in the midclavicular line. GALLBLADDER AND BILE DUCTS: Status post cholecystectomy. Some left pneumobilia is seen. No biliary ductal dilatation is evident. PANCREAS: Unremarkable. SPLEEN: Unremarkable. ADRENAL GLANDS: Unremarkable. KIDNEYS, URETERS, AND BLADDER: The kidneys appear within normal limits. There is no hydronephrosis or h ydroureter. No urinary calculi are seen. The urinary bladder appeared normal in size and configuration. STOMACH AND BOWEL: Unremarkable appearance of the stomach and bowel. No evidence of bowel obs truction. No evidence suggesting enteritis or colitis. APPENDIX: No evidence of acute appendicitis on CT examination. PERITONEUM: No free fluid. No free air. LYMPH NODES: No lymphadenopathy is evident. REPRODUCTIVE: The seminal vesicles appeared normal and symmetrical in size. The prostate gland is enlarged measuring 6.0 cm transversely. VASCULATURE: No evidence of abdominal aortic aneurysm. Minor atherosclerotic vascular plaquing is present. BONES: No aggressive appearing osseous lesion. No acute osseous pathology evident. IMPRESSION: 1. No acute intra-abdominal or pelvic abnormality. 2. Hepatomegaly. 3. Status post cholecystectomy. 4. Prostatic hypertrophy. 5. Small bilateral inguinal hernias are present which each contain fat. Patient resting comfortably on re-eval Patient educated on findings, discharged with instructions to follow up with PMD within 2-3 days Advised increase fluid intake. [place] diet Return precautions given Disposition - Clinical Impression Clinical Impression: Gastroenteritis - Patient ED Disposition Is Patient to be Admitted: No Counseled Patient/Family Regarding: Studies Performed, Diagnosis, Need For Followup - Disposition Disposition: Routine/Home Disposition Time: 00:39 Condition: IMPROVED Instructions: Gastroenteritis (ED) Print Language: SUDANESE
[2018-07-16 20:49] LABS: BASO % 0.4 % (0.0-2.0); EOS % 0.2 % (0.0-4.0); HEMOGLOBIN 14.4 g/dL (12.0-18.0); LYMPH % 14.7 % (20.0-40.0); MEAN CELL VOLUME 86.1 fl (80.0-94.0); MEAN CORPUSCULAR HEMOGLOBIN 29.1 pg (27.0-31.0); MEAN CORPUSCULAR HGB CONC 33.8 g/dL (33.0-37.0); MEAN PLATELET VOLUME 7.6 fl (7.2-11.7); MONO # 0.8 K/uL (0.0-0.8); NEUT # 4.9 K/uL (1.8-7.0); NEUT % 72.7 % (50.0-75.0); NRBC % 0.1 % (0.0-0.0); RBC 4.94 Mil/uL (4.40-5.90); RED CELL DISTRIBUTION WIDTH 15.8 % (11.5-14.5); WHITE BLOOD COUNT 6.8 K/uL (4.8-10.8)
[2018-07-16 20:57] LABS: SQUAMOUS EPITHIAL 1 /hpf (0-5); URINE BACTERIA RARE (<OCC); URINE BILIRUBIN NEGATIVE (NEGATIVE); URINE BLOOD NEGATIVE (NEGATIVE); URINE CLARITY CLOUDY (Clear); URINE COLOR AMBER (YELLOW); URINE GLUCOSE (UA) NEG (NEGATIVE); URINE HYALINE CAST >20 /hpf (0-2); URINE LEUKOCYTE ESTERASE NEG Leu/uL (Negative); URINE PROTEIN 100 mg/dL (NEGATIVE); URINE UROBILINOGEN 0.2-1.0 mg/dL (0.2-1.0)
[2018-07-16 21:10] LABS: ALB/GLOB RATIO 1.1 (1.0-2.1); ALBUMIN 4.8 g/dL (3.5-5.0); ALT/SGPT 33 U/L (21-72); AST/SGOT 51 U/L (17-59); BLOOD UREA NITROGEN 24 mg/dl (9-20); CALCIUM 8.9 mg/dL (8.4-10.2); GFR NON-AFRICAN AMERICAN > 60; LIPASE 252 U/L (23-300)
[2018-07-16] MEDS ORDERED: Sodium Chloride 0.9% 50 ML IV ONE (22:37)
[2018-07-16] MEDS ORDERED: Iohexol 300 100 ML IJ ONE (22:37)
[2018-07-17 00:42] VITALS: BP 145/99; PULSE 52; RESP 18; TEMP 98; O2SAT 98
--- NOTE | 2018-07-17 12:03 | CT ---
Date of service: 07/16/2018 PROCEDURE: CT Abdomen and Pelvis with contrast HISTORY: abd pain, vomiting, diarrhea COMPARISON: Abdomen pelvis CT with contrast 03/08/2018. TECHNIQUE: Following oral and intravenous contrast administration, a CT examination of the abdomen and pelvis was performed from the domes of the diaphragms to the symphysis pubis with reformatted datasets provided not only axial but also sagittal and coronal series. Contrast dose: Omnipaque 300, 95 cc Radiation dose: Total exam DLP = 496.43 mGy-cm. This CT exam was performed using one or more of the following dose reduction techniques: Automated exposure control, adjustment of the mA and/or kV according to patient size, and/or use of iterative reconstruction technique. FINDINGS: LOWER THORAX: Cardiomegaly noted as well as coronary artery calcifications. No pleural or pericardial effusion. No infiltrate. Small hiatal hernia encountered. Trace emphysematous changes seen the right middle lobe base anteriorly. LIVER: Mild central pneumobilia is appreciated this patient with prior history of cholecystectomy. No gross intrahepatic biliary dilatation identified. GALLBLADDER AND BILE DUCTS: Prior cholecystectomy. Common bile duct is dilated but stable in appearance measuring 9.0 mm essentially throughout except for the distal segment where it terminates at approximately 4 mm. No radiodense choledocholithiasis evident once again. PANCREAS: Unremarkable. No gross lesion or ductal dilatation. SPLEEN: Unremarkable. ADRENALS: Unremarkable. No mass. KIDNEYS AND URETERS: Unremarkable. No hydronephrosis. No solid mass. VASCULATURE: Nonaneurysmal abdominal aortic calcific atherosclerotic changes are identified. Limited dilatation of the proximal right common iliac artery is appreciated once again up to 1.5 cm. Normal caliber left common iliac artery. BOWEL: Unremarkable. No obstruction. No gross mural thickening. APPENDIX: Not identified. No CT evidence of appendicitis. PERITONEUM: Unremarkable. No free fluid. No free air. LYMPH NODES: Unremarkable. No enlarged lymph nodes. BLADDER: Unremarkable. REPRODUCTIVE: Enlarged prostate gland again evident. BONES: No acute fracture. OTHER FINDINGS: None. IMPRESSION: 1. Prior cholecystectomy reiterated but now with limited pneumobilia in the central intrahepatic ducts. Stable dilated CBD without radiodense choledocholithiasis evident once again. 2. No definitive acute abdominal or pelvic findings. 3. Enlarged prostate gland noted and separate, additional findings are as discussed above. Preliminary report provided by [place], 07/16/2018, 11:43 p.m..
== END 2018-07-17 00:40 | disposition home or self-care (01) ==
LOC: H.ER 19:44
DX: K52.9 Noninfective gastroenteritis and colitis, unspecified (principal); E11.9 Type 2 diabetes mellitus without complications; E78.00 Pure hypercholesterolemia, unspecified; I10 Essential (primary) hypertension; Z79.84 Long term (current) use of oral hypoglycemic drugs; Z86.73 Personal history of transient ischemic attack (TIA), and cerebral infarction without residual deficits; K40.20 Bilateral inguinal hernia, without obstruction or gangrene, not specified as recurrent
CPT/HCPCS: 74177; 80053; 81003; 82948; 83690; 85025; 96374; 99283; J2405; J7030; Q9966; Q9967